=== PATIENT | female | born 1975 | race African-American/Black ===

== ENCOUNTER 2020-03-16 12:58 | Outpatient (CLI) | payer OTHER, SELFPAY | END 2020-03-16 12:59 | disposition home or self-care (01) | PROVIDERS: PCP Family Medicine; Visit Provider Internal Medicine Critical Care Medicine | DX: R05 Cough (principal) | CPT/HCPCS: 36415; 86615 ==

== ENCOUNTER 2020-03-23 11:06 | Outpatient (CLI) | payer OTHER, SELFPAY ==
--- NOTE | ~2020-03-23 | CT_ITS ---
EXAMINATION: CT sinus wo con DATE: 03/23/2020 11:28 INDICATION: Chronic sinusitis TECHNIQUE: Computed tomography (CT) of the paranasal sinuses was performed without intravenous contra st. The dose-length product (DLP) was 309.20 mGy-cm. Iterative reconstruction was used. COMPARISON: None FINDINGS: There is normal development and pneumatization of the paranasal sinuses. Mild mucosal thick ening is seen inferiorly in the maxillary sinuses. The frontal, sphenoid, ethmoid sinuses are clear. The bilateral ostiomeatal complexes are patent. Visualized soft tissues are unremarkable. IMPRESSION: 1. Mild mucosal thickening of the maxillary sinuses. Reviewed, dictated and finalized at location A.
== END 2020-03-23 11:07 ==
PROVIDERS: Visit Provider Allergy & Immunology
DX: J32.9 Chronic sinusitis, unspecified (principal); R05 Cough
CPT/HCPCS: 70486

== ENCOUNTER 2020-08-21 13:38 | Outpatient (CLI) | payer OTHER, SELFPAY ==
[2020-08-21 14:10] LABS: Basophils Percent Auto 0.6 % (0.2-1.2); Eosinophils Absolute Auto 0.1 K/mm3 (0-0.3); Hematocrit 36.5 % (37.0-47.0); Hemoglobin 12.1 g/dL (12.0-15.0); Immature Granulocyte Absolute 0.01 K/mm3 (0.00-0.031); Immature Granulocyte Percent A 0.2 % (0-0.5); Lymphocytes Absolute Auto 1.38 K/mm3 (0.9-3.2); Lymphocytes Percent Auto 29.6 % (18.3-44.2); Mean Corpuscular HGB Conc 33.2 g/dl (32-36); Mean Corpuscular Hemoglobin 31.3 pg (26-34); Mean Corpuscular Volume 94.6 fl (80-100); Mean Platelet Volume 9.9 fl (7.4-10.4); Monocytes Absolute Auto 0.3 K/mm3 (0.1-0.6); Monocytes Percent Auto 7.1 % (2.6-8.5); Neutrophils Absolute Auto 2.8 K/mm3 (1.3-6.7); Neutrophils Percent Auto 59.5 % (45.5-73.1); Platelet Count Result 220 k/mm3 (150-375); Red Blood Count 3.86 M/mm3 (4.2-5.4); Red Cell Distribution Width 13.2 % (11.5-14.5); White Blood Count 4.7 K/mm3 (4.5-10.0)
[2020-08-21 14:21] LABS: Add Urine Microscopic? YES; Alanine Aminotransferase 21 U/L (4-35); Albumin Level 3.8 g/dL (3.5-5.1); Alkaline Phosphatase 83 U/L (38-126); Anion Gap -2 mmol/L (8-16); Appearance Urine Cloudy (Clear); Aspartate Amino Transferase 29 U/L (14-36); Bacteria Urine Trace /hpf; Bilirubin Urine Negative (Negative); Bilirubin,Total 0.4 mg/dL (0.2-1.3); Blood Urea Nitrogen 17 mg/dL (7-17); Blood Urine Negative (Negative); Calcium 8.7 mg/dL (8.4-10.2); Carbon Dioxide 34 mmol/L (22-30); Chloride 102 mmol/L (98-107); Cholesterol 139 mg/dL (0-200); Color Urine Yellow (Yellow); Estimated Glomerular Filt Rate > 60; Glucose 141 mg/dL (65-105); Glucose Urine UA Negative (Negative); HDL Direct 55 mg/dL; Ketones Urine Negative (Negative); Leukocyte Esterase Ur 2+ LEU/UL (NEGATIVE); Mucus Urine Rare /lpf; Nitrate Urine Negative (Negative); Protein Urine Negative (Negative); RBC Urine 0-2 /hpf (0-2); Sodium 134 mmol/L (137-145); Specific Grav Ur 1.014 (1.001-1.035); Squamous Epithelial Cell Urine Many /hpf (Few); Triglycerides 43 mg/dL (<150); Urobilinogen Urine Negative mg/dL (<2.0); WBC Urine 16-20 /hpf (0-3)
[2020-08-21 14:34] LABS: LDL Cholesterol Direct 52 mg/dL
[2020-08-21 15:15] LABS: Hemoglobin A1C 9.1 % (<5.7)
== END 2020-08-21 13:39 | disposition home or self-care (01) ==
PROVIDERS: PCP Family Medicine; Visit Provider Nurse Practitioner Family
DX: E11.3599 Type 2 diabetes mellitus with proliferative diabetic retinopathy without macular edema, unspecified eye (principal); E78.2 Mixed hyperlipidemia; R73.01 Impaired fasting glucose
CPT/HCPCS: 36415; 80053; 80061; 81001; 83036; 84443; 85025

== ENCOUNTER 2024-11-25 16:28 | Outpatient (CLI) | payer MEDICARE, OTHER, SELFPAY ==
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
--- OUTSIDE RECORDS SUMMARY | 2024-11-25 16:33 | XMS_ITS | Clinical Summary ---
Author Organization [facility] Address [address] [place] [address] Care Team Providers Care Turbo Operator Name Role Phone Deanna Wyatt Primary Care Provider [phone] Deanna Wyatt Unavailable [phone] Rissa Sprague MD Unavailable [phone] Shireen Marino RN Unavailable [phone] Td Nicolas MD PhD Unavailable [phone] Amrik Mata MD Unavailable [phone] Allergies No known active allergies Medications loratadine (CLARITIN) 10 mg tablet Take 1 tablet (10 mg total) by mouth daily as needed for allergies Active ergocalciferol (VITAMIN D) 50,000 unit capsuleIndications :Vitamin D Deficiency Take 1 capsule (50,000 Units total) by mouth once a week on Mondays Active calcitRIOL (ROCALTROL) 0.5 mcg capsuleIndications :Vitamin D Deficiency Take 1 capsule (0.5 mcg total) by mouth daily before breakfast 4 Active polyethylene glycol (MIRALAX) 17 gram/dose bulk powderIndications: constipation Take 17 g by mouth daily as needed (constipation ) As often as needed to have a daily bowel movement 510 g 4 Active meclizine (ANTIVERT) 25 mg tablet Take 1 tablet (25 mg total) by mouth 3 (three) times a day as needed for dizziness 30 tablet 4 Active montelukast (SINGULAIR) 10 mg tablet Take 1 tablet (10 mg total) by mouth every morning 4 Active albuterol HFA (PROVENTIL HFA,VENTOLIN HFA,PROAIR HFA) 90 mcg/actuation inhaler Inhale 2 puffs every 6 (six) hours as needed for wheezing Active pantoprazole DR (PROTONIX) 40 mg EC tablet Take 1 tablet (40 mg total) by mouth daily as needed (heartburn) Active ondansetron ODT (ZOFRAN-ODT) 4 mg disintegrating tabletIndications: Nausea and Vomiting Take 1 tablet (4 mg total) by mouth every 6 (six) hours as needed for nausea or vomiting 30 tablet 5 Active amLODIPine (NORVASC) 10 mg tablet Take 1 tablet (10 mg total) by mouth daily 5 Active insulin glargine 100 unit/mL vial for injection Inject 5 Units under the skin daily Take 4 units morning of surgery Active furosemide (LASIX) 80 mg tablet Take 2 tablets 4 times a week on Sunday, Sunday, Sunday, and Sunday 102 tablet 3 5 Active Active Problems Problem Noted Date Diagnosed Date ESRD (end stage renal disease) on dialysis 09/29 Assessment & Plan (11/03/2024 3:05 PM CDT): Impression: Patient is status post left brachiocephalic AV fistula creation and continues to mature. She is being dialyzed through a right IJ Perma catheter without any issues. Audible bruit and palpable thrill noted to AV fistula. Surgical incision is well approximated, healing with sutures intact. Plan: Sutures removed. -continue utilizing right IJ Perma catheter for dialysis as per Nephrology. -patient to follow up in 6-8 weeks for re-evaluation with AV duplex scan. Hyperkalemia 07/31/2024 Left posterior capsular opacification 07/08/2024 Essential hypertension 03/07/2024 Assessment & Plan (09/16/2024 1:13 PM TAMALE MAKER): Impression: Chronic and stable. Plan: Continue amlodipine Assessment & Plan (03/31/2024 3:23 PM CDT): Continue antihypertensive ESRD on hemodialysis 03/04/2024 Assessment & Plan (09/16/2024 1:12 PM TAMALE MAKER): Impression: Patient is being dialyzed through a right-sided Perma catheter without any issues. Patient is now ready to proceed with permanent access creation. Patient is right-hand dominant and denies any history of DVTs/PEs, pacemaker, trauma or surgical interventions to the upper extremities. Palpable radial and brachial pulses noted to the right upper extremity exam. Venous mapping performed today shows suitable sizable veins for fistula creation to bilateral upper extremities. Plan: Recommend left upper extremity AV fistula/graft creation for dialysis access. Risks of the procedure communicate with the patient to include risk of bleeding, risk of infection, risk of nerve damage, risk of additional surgery, and risk of limb and life. Educated the patient regarding routine surveillance to ensure his access is functioning properly and to ensure no stenosis has occurred. Educated patient of the possibility of further surgery if his fistula/graft becomes stenosis. Educated the patient of arterial steal syndrome and the possibility of occurrence post fistula/graft creation. Patient voices understanding to all these risks explained to him. - Patient to be evaluated from his table operator for cardiac clearance prior to surgery -Continue utilizing Perma catheter for dialysis as per Nephrology. Assessment & Plan (03/31/2024 3:24 PM CDT): Discussed the differences between graft versus fistula creation. Per her vein mapping today she is a candidate for left upper extremity AV fistula creation. Discussed the process along with its potential risks factors. Answered all questions to their satisfaction. He is currently dialyzing through a tunneled dialysis catheter without any issues and is currently pursuing being on the kidney transplant list. They would like to discuss all this information at home and see where they are in the kidney transplant list and will call with their decision in the next few days. Nausea and vomiting, unspecified vomiting type 0 02/29/2024 CKD (chronic kidney disease) stage 5, GFR less than 15 ml/min 02/29/2024 Chest pain 02/29/2024 Anemia in stage 4 chronic kidney disease 024 Iron deficiency anemia, unspecified 02/04/2024 VH (vitreous hemorrhage), right 01/02/2024 Assessment & Plan (01/29/2024 9:10 AM CDT): PDR both eyes OS s/p PRP - stable OD s/p PPV, however recurrent VH, Now s/p repeat PPV 01/17/24 POW2: vision improving, attached 360 with good laser 360, no VH, PF taper, Post op precautions Assessment & Plan (01/18/2024 9:42 AM CDT): PDR both eyes OS s/p PRP - stable OD s/p PPV, however recurrent VH, Now s/p repeat PPV 01/17/24 POD1: attached 360, discussed some head elevation, vigamox/PF QID. Post op precautions Assessment & Plan (01/11/2024 12:08 PM CDT): PDR both eyes OS s/p PRP - stable OD s/p PPV, however recurrent VH, B scan flat, s/p antiVEGF 1 week prior without improvement, she wishes to pursue surgery with Dr. 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 Status post (s/p) pars plana vitrectomy (PPV) and panretinal photocoagulation (PRP). Attached 360 on B scan. Discussed R/B/A of anti-VEGF and patient wishes to proceed. JUANIS today Warning Sx endophthalmitis discussed Follow up as scheduled with Dr. Calvo Vitreous hemorrhage of left eye 12/18/2023 Acute renal failure superimposed on chronic kidn ey disease 11/09/2023 Assessment & Plan (11/14/2023 4:51 PM CDT): Cr 3.9 (baseline 2-2.9) on admission. Initially thought to be from N/V/D and DKA., however may be some component of Proteinuria or Diabetic Nephropathy at play. Would not explain acute rise in the past month. Overall suspicious of pre-renal etiology given DKA and ATN with acute rise in creatinine with overall slow decrease. Renal US - normal to moderately increased echogenicity of both kidneys, no hydronephrosis, no renal calculi - Patient to follow up with her PCP on discharge regarding further labwork and workup. - Orthostatic 11/09, s/p IVF bolus 500ml. - cont calcitriol. - Holding januvia, jardiance, nephrotoxic medications. - Patient reports voiding well, no urinary sx, diarrhea now resolved, po intake good. - PCR: 1842.4, elevated in the setting of JOAN. Will need repeat PCR as outpatient. - Urine Lytes show likely pre-renal/ intrinsic process. - Repeat UA per nephrology regarding RBCs 11/12: 3-5 ( >50). Hypertensive urgency 11/09/2023 Assessment & Plan (11/14/2023 4:49 PM CDT): BP as high as 200/130s, c/b orthostatic hypotension 11/09. Orthostatic hypotension since improved, no longer complaining of position changes. - from not taking meds d/t feeling unwell. - holding losartan d/t JOAN. Will have to follow up with PCP on discharge. - Due to elevated pressures will resume amlodipine, coreg, hydralazine, isordil, clonidine, improvement in patient blood pressure. MICH (obstructive sleep apnea) 11/09/2023 Assessment & Plan (11/13/2023 1:30 PM CDT): - Wearing CPAP every night. Chronic diastolic congestive heart failure 11/08 Assessment & Plan (11/14/2023 4:28 PM CDT): proBNP 14k however euvolemic on exam. TTE 09/2023 w/ EF 55%, diastolic dysfunction. - hold lasix (40mg BID), losartan (50mg) pending resolution of JOAN. - Resume coreg, hydral/isordil. Stage 3b chronic kidney disease 10/04/2023 Hypertensive urgency 10/04/2023 Acute on chronic congestive heart failure 2023 Restrictive lung disease 10/02/2023 Pericardial effusion 10/02/2023 Pleural effusion 10/02/2023 Non-seasonal allergic rhinitis due to pollen 06/2024 Pulmonary hypertension 10/02/2023 Hypertensive emergency 10/02/2023 Solitary pulmonary nodule 10/02/2023 Abdominal swelling 10/02/2023 Hypocalcemia 10/02/2023 Hypothyroidism 10/02/2023 Proliferative diabetic retin opathy of left eye with macular edema associated with type 2 diabetes mellitus 09/13/2023 Assessment & Plan (07/08/2024 12:22 PM TAMALE MAKER): Neovascularization elsewhere (NVE) superior nasal with traction and neovascularization of the disc (NVD) with VH, pt ed Refer to Retina Assessment & Plan (09/13/2023 3:38 PM TAMALE MAKER): Vitreous hemorrhage and increased cystoid macular edema (CME) since prior in better seeing eye. Discussed R/B/A of anti-VEGF and patient wishes to proceed. I'VE today Warning Sx endophthalmitis discussed Chronic cough 08/03/2023 Nonsmoker 08/03/2023 Vomiting 06/09/2023 Assessment & Plan (06/12/2023 10:58 AM TAMALE MAKER): Patient with vomiting after surgical procedure under anesthesia. Vomiting started to improve without any episodes in over 12 hours, then she was unable to tolerate anything PO. - IV anti emetics ordered, transitioned to PO as patient reports improvement in symptoms. Tolerating diet currently JOAN (acute kidney injury) 06/09/2023 Assessment & Plan (06/11/2023 11:54 AM TAMALE MAKER): Per documentation patient with CKD stage 3. Patient recently was switched from hydrochlorothiazide/losartan to Entresto by outpatient provider. Patient also recently had her furosemide stopped. Creatinine remains stable, suspect this is patients baseline. - will hold Entresto - renally dose all medications - lactated Ringer's at 75 cc/hour x 2.5 L, held due sob. Patient denies shortness of breath this morning. Type 2 DM with CKD stage 3 and hypertension 05/23 Assessment & Plan (09/16/2024 1:11 PM TAMALE MAKER): Impression: Chronic with good glucose control Plan: Continue insulin. Assessment & Plan (05/13/2024 4:38 PM CDT): 49 y.o. female with type 2 diabetes mellitus, on insulin, poorly-controlled, complicated by peripheral neuropathy, proliferative diabetic retinopathy, ESRD on HD (T--Sun), diastolic CHF (LVEF 55-60%), pulmonary hypertension, 4 mm pulmonary nodule in the right upper lobe, hypertension, hyperlipidemia, vitamin D deficiency Glycemic control sub-optimal with persistent hyperglycemia (target A1c < 7.0%) Hgb A1c unreliable in setting acute-chronic anemia, end-stage renal disease -> check alternative indices of glycemic control (e.g., fructosamine or glycated albumin - reflects glycemic control over past 2 to 3 weeks) (+) recent episodes of hypoglycemia (overnight - likely related to basal insulin; dose reduced); adherent with medications and BG monitoring with glucometer and/or No CGM No results found for: CPEPTIDE , KGF54RA , IA2AB Lab Results Component Value Date HGBA1C 8.9 (H) 11/10/2023 GLUCOSE 245 (H) 04/15/2024 Denies recent symptoms of hyperglycemia (no polyuria, no polydipsia, no increased hunger, no unintentional weight loss, no blurry vision), no recurrent infections (e.g., no urinary tract infections, no skin infections). No issues obtaining insulin and/or other glucose-lowering medications. Has adequate blood sugar monitoring supplies. Still struggling to adhere to a healthy diet and regular exercise regimen in setting co-morbid conditions. No changes to current diabetic regimen due to lack of BG data - will focus on obtaining CGM and is currently starting evaluation for renal transplant (ESRD undergoing HD on ). Recent Ophthalmology visit. Plan: 1) Medications Basal: Lantus 10 -> 8 -> 5 units qHS (in setting overnight hypoglycemic episodes) Bolus: Humalog 3 units TID with meals + 1:50 >150 sliding scale OFF Metformin in setting poor renal function OFF Statin - Atorvastatin (Lipitor) 40 mg/day Not taking BETZY-ARB 2) Monitoring BG testing supplies - glucometer and/or continuous glucose monitor (CGM) Emergency glucagon treatment product, if appropriate Gvoke HypoPen or Zegalogue premixed glucagon auto-injector Baqsimi glucagon nasal powder Hgb A1C, renal function panel, lipid profile, urine microalbumin:Cr Referral with ambulatory diabetes education for BG monitoring and CGM Retinal examination - follow-up with Ophthalmology Foot care evaluation - follow-up with Podiatry Vaccinations: Flu (yearly), Tdap, Hep B, Herpes zoster (50 yr), COVID-19 Assessment & Plan (03/31/2024 3:22 PM CDT): Continue insulin Assessment & Plan (06/10/2023 6:03 PM TAMALE MAKER): Patient on home Farxiga, Januvia, and metformin - A1c 6.9 - hold oral medications - sliding scale insulin and consistent carb diet given decreased p.o. - blood glucose stable Chronic diastolic heart failure 06/09/2023 Assessment & Plan (06/11/2023 11:56 AM TAMALE MAKER): Chart review of history of chronic diastolic heart failure. No echocardiogram in our system. Patient reports following with Dr. Salomon for Cardiology in [place] - continue atorvastatin, Coreg and hold Entresto and Farxiga given JOAN above - Encourage patient to continue to follow up with outpatient provider Proliferative diabetic retin opathy of both eyes with macular edema associated with type 2 diabetes mellitus 05/29/2023 Assessment & Plan (08/12/2024 11:29 AM TAMALE MAKER): OS s/p PRP - referred back by Dr. Kirk for new NV/VH Today with NVD/NVE with inferonasal fibrosis and associated PRH/VH. Has decent PRP however does have some room for fill if needed. Recommend repeat injection today and bring back for second injection to prevent progression of inferior fibrotic traction to TRD. OD s/p PPV, however recurrent VH, then s/p repeat PPV 01/17/24 Stable today with good PRP, observe Vision limited by atrophic changes OU Assessment & Plan (04/08/2024 9:21 AM CDT): OS s/p PRP - stable OD s/p PPV, however recurrent VH, now s/p repeat PPV 01/17/24 POM3: vision improving, attached 360 with good laser 360 Stable with excellent PRP OU Atrophic changes OU Assessment & Plan (12/18/2023 10:07 AM CDT): S/p PPV OD / S/p PRP OU OD improved CME with lamellar changes and EZ fragmentation OS + VH and few IR cysts. Discussed injections and DRCR results Assessment & Plan (10/16/2023 10:53 AM CDT): S/p PPV OD / S/p PRP OU S/p inj for VH OD with improvement + CME, repeat inj OD OS CME improved and stable PDR Assessment & Plan (09/18/2023 10:51 AM TAMALE MAKER): OD mild VH h/o PPV with laser Inject OD today OS recent injection 5 days ago, history of PRP Understands guarded prognosis Assessment & Plan (09/13/2023 3:39 PM TAMALE MAKER): Vitreous hemorrhage today limiting fundus view, attached 360 right eye (OD). Discussed R/B/A of likely anti-VEGF right eye (OD) at follow up with Dr. Calvo Assessment & Plan (06/19/2023 10:16 AM TAMALE MAKER): S/p PPV laser MP OD PRP OS Taper drops PF Discontinue antibiotic Assessment & Plan (06/11/2023 11:48 AM TAMALE MAKER): Patient with recent surgical procedure by Ophthalmology. Had postop follow-up eye appointment without complication. - continue outpatient drops as prescribed. - will continue to hold aspirin as unclear when patient was supposed to restart this medication and patient planning to call ophthalmology office today to find out Assessment & Plan (05/29/2023 9:10 AM TAMALE MAKER): Discussed DRCR studies and discussed severity of PDR Discussed several studies : Options continue injections had them 1 week ago, h/o avastin Recent IVO OD but persistent CME and ERM Options: PRP OU or PPV OD and PRP OS Understands need for additional injections OU in future Also understands need for possible PPV in future OS Risks, benefits, alternatives were discussed with patient including but not limited to infection, bleeding, retinal detachment, damage to eye, loss of vision, loss of eye, deformity, double vision, increased pressure in the eye, cataract progression, inflammation in the eye that can spread to the other eye, postoperative positioning, altitude/travel precautions should gas bubble injection be required, the guarded prognosis for vision, the potential need for further procedures, and that no guarantees can be made. The patient understands these risks and all questions were answered. The patient then elected to proceed. OD PPV laser OS Pseudophakia of both eyes 05/29/2023 Resolved Problems Problem Noted Date Diagnosed Date Resolved Date Diabetic ketoacidosis withou t coma associated with type 2 diabetes mellitus 11/09/2023 01/11/2024 Assessment & Plan (11/14/2023 4:19 PM CDT): P/w BG 400s, AG 16, ketones 0.9, pH 7.36. Workup: UA w/ 21-50 WBCs (but contaminated by squams), CXR neg, WBC 8.9, RVP neg. Patient prior A1C in 6's range. Unclear of what oral antihyperglycemic medications she was taking at home. Per previous charts, it looks as though she was most recently prescribed Farxiga. Patient unclear if on either Jardiance or Januvia at home, presumably stopped Januvia 09/2023 due to heart failure. Ha1c 8.8, repeat 8.9. - sensitive SSI, DM diet. - holding jardiance d/t JOAN, discontinued Januvia d/t CHF. - Endocrine consult: recommend discharge with 3 units glargine. - Diabetes education c/s - saw patient on 11/14/23. - F/u outpatient for labs, as Cr/ GFR inappropriate to start oral antihyperglycemic at this time. (Patient reportedly to reschedule appt. with last ironer Dr. Saucedo). Coffee ground emesis 11/09/2023 024 Assessment & Plan (11/14/2023 4:30 PM CDT): Reports vomiting followed by 3 episodes of CGE. - Workup: lipase nl, UA 21-50 WBCs but contaminated by squams, Hgb 10.7 (baseline 7-10 range). - Ddx: DKA vs viral gastro. Denies UTI symptoms. No further emesis. - PPI PO. - CTM. Obstructive sleep apnea 10/02/2023 05/0 08/2023 Pneumonia of right lower lob e due to infectious organism 06/08/2023 06/09/2023 Encounters Date Type Department Care Team Description 11/14/2024 Telephone [facility] Ophthalmology [address] 6[address] [place] [address] Mann Calvo MD PhD Pre Cert (2024 AVASTIN NOT ELIGIBLE FOR DAYS ) 11/03/2024 2:15 PM CDT Office Visit [facility] Medical Group Vascular and Vein Surgery [address] [place] [phone] Marilyn Barrios NP ESRD (end stage renal disease) on dialysis (HCC) (Primary Dx) 11/03/[address] [facility] Medical [facility] Vascular and Vein Surgery [address] [place] [address] [address] [place] [address] Vinayak Santos MD End stage renal disease (HCC) (Primary Dx); Arteriovenous fistula occlusion, initial encounter 10/17/[address] [facility] Accountable Care Organization [address] [place] [id number] Yissel Tobias RPh 10/13/2024 7:30 AM CDT - 10/13/2024 9:25 AM CDT Surgery [facility] OR [address] [place] [address] Vinayak Santos MD CREATION LEFT UPPER EXTREMITY ARTERIOVENOUS FISTULA 10/13/2024 7:30 AM CDT Anesthesia Event [facility] OR [address] [place] [address] Josselyn Bruno MD Lee, Walter, MD 10/13/2024 5:32 AM CDT - 10/13/2024 11:15 AM CDT Hospital Encounter [facility] [place] [place] [address] [place] [address] Vinayak Santos MD ESRD (end stage renal disease) (HCC) (Primary Dx) Discharge Disposition: Discharge to home or self care 10/03/2024 Telephone [facility] Transplant Kidney [address] [facility] [address] [phone] [place] [address] Shireen Marino RN Kidney Eval 09/30/2024 8:20 AM CDT Procedure visit [facility] Ophthalmology [address] [facility] [address] [place] [phone] Mann Calvo MD PhD 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) (Primary Dx) 09/29/2024 8:00 AM CDT - 09/29/2024 11:59 PM CDT Hospital Encounter [facility] Pulmonary Rehabilitiation Program [address] [facility] [address] [place] [address] Discharge Disposition: Discharge to home or self care 09/29/2024 7:00 AM CDT - 09/29/2024 11:59 PM CDT Hospital Encounter [facility] Cardiac Diagnostic Lab [address] [facility] [address] [place] [phone] Pre-transplant evaluation for kidney transplant; End stage renal disease (HCC); Pulmonary hypertension (HCC) Discharge Disposition: Discharge to home or self care 09/29/2024 Telephone [facility] Dialysis Access Center at [facility] [address] [facility] [address] [place] [address] Vinayak Santos MD 09/23/2024 3:00 PM TAMALE MAKER Office Visit [facility] Medical Group Cardiology [address] [facility] [address] [place] [phone] Candido Tariq MD Pre-operative cardiovascular examination (Primary Dx) 09/18/2024 10:26 AM TAMALE MAKER - 09/21/2024 2:15 PM TAMALE MAKER Hospital Encounter [facility] 2 Center [address] [place] [address] Pablo Gallego MD Saravanan, Pathanjali, MD Elizondo, Daniel Elias, MD Hyperkalemia (Primary Dx); ESRD on hemodialysis (HCC) Discharge Disposition: Discharge to home or self care 09/16/2024 11:03 AM TAMALE MAKER - 09/16/2024 11:59 PM TAMALE MAKER Hospital Encounter [facility] Dialysis Access Center at [address] [address] ESRD on hemodialysis (HCC) (Primary Dx); Essential hypertension; Type 2 DM with CKD stage 3 and hypertension (HCC); Chronic diastolic congestive heart failure (HCC) Discharge Disposition: Discharge to home or self care 09/16/2024 11:00 AM TAMALE MAKER - 09/16/2024 11:59 PM TAMALE MAKER Hospital Encounter [facility] Medical Office Building 2 Vascular [address] [address] Pre-operative exam; End stage renal disease (HCC) Discharge Disposition: Discharge to home or self care 09/16/2024 Results Follow-Up [facility] [address] [place] [address] Kourtney Damon PA 09/16/[address] [facility] Medical Group Cardiology [address] [place] [address] [phone] Candido Tariq MD 09/16/2024 Telephone [facility] Dialysis Access Center at [facility] [address] [facility] [address] [place] [address] Marilyn Barrios NP Cardiac Clearance / LUE AVF vs AVG Creation 09/11/2024 7:59 AM TAMALE MAKER - 09/11/2024 5:16 PM [place] [address] Jesu Chew MD Philip, Antonio Gary MD ESRD on hemodialysis (HCC) (Primary Dx); Weakness; ESRD (end stage renal disease) (HCC); Dizziness; Hyperkalemia Discharge Disposition: Discharge to home or self care from Last 3 Months Immunizations Immunization Administration Dates Next Due Hep B Vaccine 05/15/2024,04/19/2024,03/15/2024 Influenza, Trivalent, IM (MDV) 04/16/2024 Influenza, Trivalent, Preser vative Free, Intramuscular 04/11/2024 Influenza, Unspecified 04/16/2024 PPD TEST 03/18/2024 Pneumococcal Conjugate Pcv20 08/28/2024 Tdap 08/10/2022,06/03/2020 Surgical History Surgery Date Site/Laterality Comments CATARACT EXTRACTION 07/23/2019 - 07/22/2020 Bilateral SKIN GRAFT SPLIT THICKNESS LEG / FOOT 05/29/2021 Bilateral CATARACT EXTRACTION 05/23/2023 - 06/21/2023 VITRECTOMY 01/17/2024 Right PPV/EL/FAX TUNNELED VENOUS CATHETER PLACEMENT 03/05/2024 Right RIJ permacath - Dr. Medel DIALYSIS FISTULA CREATION 10/13/2024 Left LUE brachiocephalic AVF creation - Dr. Vinayak Santos Medical History Medical History Date Comments Diabetes mellitus (HCC) Thyroid disease Hypertension Vertigo CHF (congestive heart failure) ([facility]) Obstructive sleep apnea 10/02/2023 no cpap Diabetic retinopathy ([facility]) Nausea and vomiting, unspeci fied vomiting type 02/29/2024 Chronic kidney disease dialysis - sat Anemia months ago Vitamin D deficiency 1year ago PONV (postoperative nausea a nd vomiting) Allergic rhinitis GERD (gastroesophageal reflux disease) Type 2 diabetes mellitus (HCC) H/O byers 2019 3rd degree to fe et now has balance issues Family History Medical History Relation Name Comments Cancer Father FTher prostate Diabetes Father FTher Cancer Mother Mother lung Diabetes Mother Mother Glaucoma Mother Mother Cancer Sister Sister lung Anesthesia problems Neg Hx Relation Name Status Comments Father FTher Mother Mother Sister Sister Social History Tobacco Use Types Packs/Day Years Used Date Smoking Tobacco: Never Passive Smoke Exposure: Never Smokeless Tobacco: Never Tobacco Cessation:Counseling Given: Yes [facility] Utilities Answer Date Recorded In the past 12 months has th e electric, gas, oil, or water company threatened to shut off services in your home? No 09/19/2024 Social Connection and Isolat ion Panel [NHANES] Answer Date Recorded In a typical week, how many times do you talk on the phone with family, friends, or neighbors? More than three times a week 09/19/2024 How often do you get togethe r with friends or relatives? Once a week 09/19/2024 How often do you attend chur ch or moravian services? Never 09/19/2024 Do you belong to any clubs o r organizations such as samaritan groups, unions, fraternal or athletic groups, or school groups? No 09/19/2024 How often do you attend meet ings of the clubs or organizations you belong to? Never 09/19/2024 Are you , , di vorced, , never , or living with a partner? 09/19/2024 AUDIT-C Answer Date Recorded Q1: How often do you have a drink containing alcohol? Never 10/13/2024 Q2: How many drinks containi ng alcohol do you have on a typical day when you are drinking? Patient does not drink Q3: How often do you have si x or more drinks on one occasion? Never 10/13/2024 Overall Financial Resource Strain (CARDIA) Answe r Date Recorded How hard is it for you to pa y for the very basics like food, housing, medical care, and heating? Not very hard 09/19/2024 PHQ-2 Answer Date Recorded PHQ-2 Total Score (If total score is 3 or more points, staff should administer the PHQ-9) 0 09/13/2024 [facility] Occupat ional [facility] - Occupational Stress Questionnaire Answer Date Recorded Do you feel stress - tense, restless, nervous, or anxious, or unable to sleep at night because your mind is troubled all the time - these days? Not at all 11/09/2023 Exercise Vital Sign Answer Date Recorde d On average, how many days pe r week do you engage in moderate to strenuous exercise (like a brisk walk)? 0 days 11/09/2023 On average, how many minutes do you engage in exercise at this level? 0 min 11/09/2023 Hunger Vital Sign Answer Date Recorded Within the past 12 months, y ou worried that your food would run out before you got the money to buy more. Never true 09/19/19 25 Within the past 12 months, t he food you bought just didn't last and you didn't have money to get more. Never true 09/19/2024 PRAPARE - Transportation Answer Date Re corded In the past 12 months, has l ack of transportation kept you from medical appointments or from getting medications? No 08/24 In the past 12 months, has l ack of transportation kept you from meetings, work, or from getting things needed for daily living? No 09/19/2024 Housing Stability Vital Sign Answer Javier e Recorded In the last 12 months, was t here a time when you were not able to pay the mortgage or rent on time? No 11/16/2023 In the last 12 months, how many places have you lived? 1 11/16/2023 In the last 12 months, was t here a time when you did not have a steady place to sleep or slept in a long-term (including now)? No 11/16/2023 PHQ-9 Answer Date Recorded PHQ-9 Total Score 0 09/13/2024 Housing Stability Vital Sign Answer Javier e Recorded In the last 12 months, was t here a time when you were not able to pay the mortgage or rent on time? No 09/19/2024 In the past 12 months, how m any times have you moved where you were living? 0 09/19/2024 At any time in the past 12 m [facility], were you homeless or living in a long-term (including now)? No 09/19/2024 Personal Safety Answer Date Recorded Have you ever been in or are you currently in a harmful physical or emotional relationship or is someone making you feel afraid or unsafe? Denies 10/13/2024 Comments No Sex and Gender Information Value Date Recorded Sex Assigned at Not on file Legal Sex Female 1:48 PM CDT Gender Identity Not on file Sexual Orientation Not on file Obstetrics History Last Filed Vital Signs Vital Sign Reading Time Taken Comments Blood Pressure 164/78 11/03/2024 2:22 PM CDT Pulse 94 11/03/2024 2:22 PM CDT Temperature 37.2 C (99 F) 10/13/2024 9:40 AM CDT Respiratory Rate 18 10/13/2024 10:10 AM CDT Oxygen Saturation 93% 10/13/2024 10:10 AM CDT Inhaled Oxygen Concentration - - Weight 76.7 kg (169 lb) 11/03/2024 2:22 PM CDT Height 172.7 cm (5' 8 ) 11/03/2024 2:22 PM CDT Body Mass Index 25.7 11/03/2024 2:22 PM CDT Plan of Treatment Health Maintenance Due Date Last Done Comments Breast Cancer Screening-Mammogram 1974 Cervical Cancer Screening 1974 Colon Cancer Screening-Colonoscopy 1974 Foot Exam 1974 Regular Well Visit/Exam 18-64 01/17/1992 Zoster Vaccine (1 of 2) 01/17/2024 Covid-19 Vaccine (3 - 2023-2 5 season) 2024 03/13/2021, 02/17/2021 Albumin Creatinine Ratio, Urine 10/04/2024 Hemoglobin A1C 02/22/2025 08/25/2024, 03/2025, 05/13/2024, Additional history exists Dilated Eye Exam 08/12/2025 08/12/2024, , 04/08/2024, Additional history exists Depression Screening 08/25/2025 08/25/2024, 08/25/2024, 07/31/2024, Additional history exists Lipid Panel 08/25/2025 08/25/2024, 04/23, 11/09/2023, Additional history exists eGFR 10/13/2025 10/13/2024, 08/2024, 09/20/2024, Additional history exists DTaP/Tdap/Td Vaccine (3 - Td or Tdap) 08/10/2032 08/10/2022, 06/03/2020 Influenza Vaccine Completed 04/16/2024, , 04/11/2024 Hepatitis C Screening Completed 08/25/2024 , 07/31/2024, 03/04/2024, Additional history exists Pneumococcal vaccine <65 Completed 08/28/2024 Hepatitis B Screening Completed 09/11/2024 , 05/15/2024, 04/19/2024, Additional history exists Medical Devices Implanted Type Area Java Software Device Identifier Shelf Expiration Date Model / Serial / Lot Iud Vagina OQVestir Duraflow Embosafe 15.5fr 28cm Basic 2 Lumen Kit Catheter [id number] - [id number] Implanted:Qty: 1 on 03/05/2024 by Boubacar Medel MD at [facility] Right: Internal Jugular OQVestir 04/21/2026 [id number] / / [id number] Procedures Procedure Name Priority Date/Time Associated Diagnosis Comments POCT GLUCOSE DEVICE Routine 10/13/2024 9 :12 AM CDT IL AN PROCEDURE PLACEHOLDER Routine 10/13/2024 7:47 AM CDT IL AN ELECTIVE ENDOTRACHEAL AIRWAY Routine 10/13/2024 7:47 AM CDT CREATION ARTERIOVENOUS FISTULA - ARM 10/13/2024 7:30 AM CDT ESRD (end stage renal disease) on dialysis (HCC) ECG 12-LEAD STAT 10/13/2024 7:04 AM CDT POCT GLUCOSE DEVICE Routine 10/13/2024 6 :03 AM CDT EGFR STAT 10/13/2024 6:03 AM CDT HCG, BLOOD, QUANTITATIVE STAT 10/13/2024 6:03 AM CDT APTT STAT 10/13/2024 6:03 AM CDT PROTIME-INR STAT 10/13/2024 6:03 AM CDT CBC WITHOUT DIFFERENTIAL STAT 10/13/2024 6:03 AM CDT BASIC METABOLIC PANEL STAT 10/13/2024 6:03 AM CDT POCT HCG, URINE Routine 10/13/2024 6:00 AM CDT INTRAVITREAL INJECTION, PHARMACOLOGIC AGENT - OS - LEFT EYE Routine 09/30/2024 10:17 AM CDT 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) SIX MINUTE WALK Routine 09/29/2024 8:17 AM CDT Pre-transplant evaluation for kidney transplant End stage renal disease (HCC) TRANSTHORACIC ECHO (TTE) COMPLETE W DOPPLER/CF WO CONTRAST Routine 09/29/2024 8:10 AM CDT Pre-transplant evaluation for kidney transplant End stage renal disease (HCC) Pulmonary hypertension (HCC) POCT GLUCOSE DEVICE Routine 09/21/2024 1 1:53 AM TAMALE MAKER POCT GLUCOSE DEVICE Routine 09/21/2024 7 :50 AM TAMALE MAKER EGFR Routine 09/21/2024 4:31 AM TAMALE MAKER DIFFERENTIAL AUTO Routine 09/21/2024 4:3 1 AM TAMALE MAKER MAGNESIUM Routine 09/21/2024 4:31 AM TAMALE MAKER BASIC METABOLIC PANEL Routine 09/21/2024 4:31 AM TAMALE MAKER HEPATIC FUNCTION PANEL Routine 09/21/2024 4:31 AM TAMALE MAKER CBC WITH AUTO DIFFERENTIAL Routine 09/21/2024 4:31 AM TAMALE MAKER POCT GLUCOSE DEVICE Routine 09/20/2024 8 :07 PM TAMALE MAKER POCT GLUCOSE DEVICE Routine 09/20/2024 4 :[address] HEAD WO CONTRAST ED Urgent/IP Urgent 09/20/2024 1:57 PM TAMALE MAKER POCT GLUCOSE DEVICE Routine 09/20/2024 1 :10 PM TAMALE MAKER POCT GLUCOSE DEVICE Routine 09/20/2024 8 :20 AM TAMALE MAKER LIPASE Routine 09/20/2024 6:29 AM TAMALE MAKER EGFR Routine 09/20/2024 6:29 AM TAMALE MAKER DIFFERENTIAL AUTO Routine 09/20/2024 6:2 9 AM TAMALE MAKER MAGNESIUM Routine 09/20/2024 6:29 AM TAMALE MAKER BASIC METABOLIC PANEL Routine 09/20/2024 6:29 AM TAMALE MAKER HEPATIC FUNCTION PANEL Routine 09/20/2024 6:29 AM TAMALE MAKER CBC WITH AUTO DIFFERENTIAL Routine 09/20/2024 6:29 AM TAMALE MAKER POCT GLUCOSE DEVICE Routine 09/20/2024 6 :19 AM TAMALE MAKER POCT GLUCOSE DEVICE Routine 09/19/2024 8 :26 PM TAMALE MAKER POCT GLUCOSE DEVICE Routine 09/19/2024 4 :[address] ABDOMEN PELVIS WO CONTRAST ED Urgent/IP Urgent 09/19/2024 1:08 PM TAMALE MAKER POCT GLUCOSE DEVICE Routine 09/19/2024 1 1:26 AM TAMALE MAKER HCG, BLOOD, QUANTITATIVE STAT 09/19/2024 10:48 AM TAMALE MAKER HEMODIALYSIS Routine 09/19/2024 10:31 AM TAMALE MAKER POCT GLUCOSE DEVICE Routine 09/19/2024 8 :28 AM TAMALE MAKER EGFR Routine 09/19/2024 6:44 AM TAMALE MAKER DIFFERENTIAL AUTO Routine 09/19/2024 6:4 4 AM TAMALE MAKER CBC WITH AUTO DIFFERENTIAL Routine 09/19/2024 6:44 AM TAMALE MAKER PHOSPHORUS Routine 09/19/2024 6:44 AM TAMALE MAKER MAGNESIUM Routine 09/19/2024 6:44 AM TAMALE MAKER COMPREHENSIVE METABOLIC PANEL Routine 09/19/2024 6:44 AM TAMALE MAKER POCT GLUCOSE DEVICE Routine 09/18/2024 7 :37 PM TAMALE MAKER US KIDNEY COMPLETE IP Routine 09/18/2024 7: 21 PM TAMALE MAKER BUN Routine 09/18/2024 6:45 PM TAMALE MAKER POTASSIUM LEVEL Timed 09/18/2024 6:45 PM TAMALE MAKER POCT GLUCOSE DEVICE Routine 09/18/2024 5 :58 PM TAMALE MAKER POTASSIUM LEVEL STAT 09/18/2024 2:00 PM TAMALE MAKER POCT GLUCOSE DEVICE Routine 09/18/2024 1 :28 PM TAMALE MAKER HEMODIALYSIS Routine 09/18/2024 12:48 PM TAMALE MAKER POCT GLUCOSE DEVICE Routine 09/18/2024 1 1:58 AM TAMALE MAKER URINALYSIS, MICROSCOPIC ONLY STAT 09/18/2024 10:15 AM TAMALE MAKER URINE CULTURE STAT 09/18/2024 10:15 AM TAMALE MAKER URINALYSIS AND REFLEX TO MICROSCOPIC AND CULTURE STAT 09/18/2024 10:15 AM TAMALE MAKER POC BLOOD GAS AND CHEMISTRIES, VENOUS Routine 09/18/2024 10:12 AM TAMALE MAKER ECG 12-LEAD STAT 09/18/2024 9:44 AM TAMALE MAKER MAGNESIUM STAT 09/18/2024 9:38 AM TAMALE MAKER PHOSPHORUS STAT 09/18/2024 9:38 AM TAMALE MAKER EGFR STAT 09/18/2024 9:38 AM TAMALE MAKER DIFFERENTIAL AUTO STAT 09/18/2024 9:3 8 AM TAMALE MAKER COMPREHENSIVE METABOLIC PANEL STAT 09/18/2024 9:38 AM TAMALE MAKER CBC WITH AUTO DIFFERENTIAL STAT 09/18/2024 9:38 AM TAMALE MAKER US VEIN MAPPING DUPLEX UPPER EXTREMITY BILATERAL Schedule Routine, Read Routine (OP Routine) 09/16/2024 1:28 PM TAMALE MAKER Pre-operative exam End stage renal disease (HCC) URINALYSIS, MICROSCOPIC ONLY STAT 09/11/2024 3:43 PM TAMALE MAKER URINE CULTURE STAT 09/11/2024 3:43 PM TAMALE MAKER URINALYSIS AND REFLEX TO MICROSCOPIC AND CULTURE STAT 09/11/2024 3:43 PM TAMALE MAKER POCT GLUCOSE DEVICE Routine 09/11/2024 3 :12 PM TAMALE MAKER HEPATITIS B SURFACE ANTIGEN STAT 09/11/2024 10:58 AM TAMALE MAKER HEPATITIS B SURFACE ANTIBODY (IMMUNE STATUS) STAT 09/11/2024 10:58 AM TAMALE MAKER POCT GLUCOSE DEVICE Routine 09/11/2024 1 0:43 AM TAMALE MAKER POCT GLUCOSE DEVICE Routine 09/11/2024 1 0:07 AM TAMALE MAKER POTASSIUM LEVEL Timed 09/11/2024 10:05 AM TAMALE MAKER HEMODIALYSIS Routine 09/11/2024 9:32 AM TAMALE MAKER XR CHEST 1 VIEW ED 09/11/2024 9:00 AM TAMALE MAKER POC BLOOD GAS AND CHEMISTRIES, VENOUS Routine 09/11/2024 8:35 AM TAMALE MAKER ECG 12-LEAD STAT 09/11/2024 8:19 AM TAMALE MAKER EGFR STAT 09/11/2024 8:18 AM TAMALE MAKER DIFFERENTIAL AUTO STAT 09/11/2024 8:1 8 AM TAMALE MAKER COMPREHENSIVE METABOLIC PANEL STAT 09/11/2024 8:18 AM TAMALE MAKER CBC WITH AUTO DIFFERENTIAL STAT 09/11/2024 8:18 AM TAMALE MAKER INFLUENZA A/B, RSV, AND COVID-19 PCR STAT 09/11/2024 8:18 AM TAMALE MAKER HEPATITIS C ANTIBODY Routine 08/25/2024 10:24 AM TAMALE MAKER Pre-transplant evaluation for kidney transplant End stage renal disease (HCC) HEMOGLOBIN A1C Routine 08/25/2024 10:24 AM TAMALE MAKER Pre-transplant evaluation for kidney transplant End stage renal disease (HCC) LIPID PANEL Routine 08/25/2024 10:24 AM TAMALE MAKER Pre-transplant evaluation for kidney transplant End stage renal disease (HCC) ALBUMIN CREATININE RATIO, URINE Routine 10/05/2023 3:35 AM CDT from Last 3 Months or Most Recently Relevant to Health Maintenance Results * POCT glucose (10/13/2024 9:12 AM CDT) Glucose, POC 125 70 - 199 mg/dL Glucose comment 1 Will Repeat Test YAW BOOKER Blood 10/13/2024 9:12 AM CDT 10/13/2024 9:12 AM CDT us Vinayak Santos MD LAB POCT ORDERABLES - DEVICE Fin al Result YAW BOOKER [address] [place] [address] Department [place] [address] * IL AN ELECTIVE ENDOTRACHEAL AIRWAY, IL AN PROCEDURE PLACEHOLDER (10/13/2024 7:47 AM CDT) Narrative Addison Chandler CRNA - 10/13/2024 7:47 AM CDT Addison Chandler CRNA 10/13/2024 7:47 AM Airway Patient location: OR Urgency: elective Indications for airway management: anesthesia Difficult airway: no Staff: Supervising provider: Josselyn Bruno MD Placed by: INDUSTRIAL MAINTENANCE MILLWRIGHT: Addison Chandler CRNA Emergent airway documentation: Risks and benefits discussed: yes Consent obtained: yes Consent given by: patient Airway prep: Preoxygenated: yes Patient position: sniffing Mask difficulty assessment: 1 - vent by mask Spontaneous ventilation during airway: absent Sedation level during airway: deep Final airway details: Final airway type: endotracheal airway Tube type: ETT ETT size: 7.0 mm Cuffed: yes Technique used for successful ETT placement: direct laryngoscopy Devices/Methods used in placement: intubating stylet Insertion site: oral Blade type: Morin Blade size: 2 Cormack-Lehane (direct): grade IIa - partial view of glottis Cuff volume: 6 mL Cuff inflated with: air ETT to gums: 21 cm Placement verified by: auscultation and CO2 detection Airway secured with: silk tape Number of attempts: 1 us Josselyn Bruno MD ANESTHESIA ORDERABLES Final Result * ECG 12 lead (10/13/2024 7:04 AM CDT) [facility] Ventricular Rate EKG/Min [address] [facility] Atrial Rate 99 BPM [facility] [place]-Interval (MSEC) 172 ms [facility] QRS-Interval (MSEC) 88 ms [facility] QT-Interval (MSEC) 356 ms [facility] QTc 456 ms [facility] P [place] 52 degrees [facility] R [place] 27 degrees [facility] T [place] 26 degrees [facility] Diagnosis Normal sinus rhythm Left atrial abnormality . Minimal voltage criteria for LVH, may be normal variant ( Ramon product ) When compared with ECG of 18-SEP-2024 09:44, No significant change was found Confirmed by SULTAN CHRISTINA M.D. ([id number]) on 10/13/2024 2:40:51 PM [facility] 10/13/2024 7:04 AM CDT 10/13/2024 2:40 PM CDT us Josselyn Bruno MD ECG ORDERABLES Final Result [facility] * (ABNORMAL) eGFR (10/13/2024 6:03 AM CDT) eGFR 7(L) >=60 mL/min/1. 73 m2 Comment: Interpretive Data Reference Interval Normal >/= 90 mL/min/1.73m2 Mildly decreased* 60 - 89 mL/min/1.73m2 Mildly to moderately decreased 45 - 59 mL/min/1.73m2 Moderately to severely decreased 30 - 44 mL/min/1.73m2 Severely decreased 15 - 29 mL/min/1.73m2 Kidney Failure < 15 mL/min/1.73m2 *Relative to young adult level Estimated glomerular filtration rate is determined by the 2020 CKD-EPI equation recommended by the National Kidney Foundation (A Unifying Approach to GFR Estimation: Recommendations of the NKF-ASK Task Force on Reassessing the Inclusion of Race in Diagnosing Kidney Disease, JASN 2020). The CKD-EPI equation should not be used for patients with unstable renal function and has not been validated in children and those over 70. Current interpretive data was last reviewed 2021. Blood 10/13/2024 6:03 AM CDT 10/13/2024 6:08 AM CDT us Vinayak Santos MD LAB BLOOD ORDERABLES Final Resul t YAW BOOKER [address] [facility] Department [place] [address] * POCT glucose (10/13/2024 6:03 AM CDT) Glucose, POC 137 70 - 199 mg/dL Glucose comment 1 Will Repeat Test YAW BOOKER Blood 10/13/2024 6:03 AM CDT 10/13/2024 6:03 AM CDT Vinayak Santos MD LAB POCT ORDERABLES - DEVICE Fin al Result Performing Organization Address [facility] Co de Phone Number [id number] [employer] [place] [address] * aPTT (10/13/2024 6:03 AM CDT) aPTT 32 22 - 37 sec Comment: Interpretive data aPTT test has not been evaluated for monitoring heparin therapy. The anti-Xa is the preferred test. Current interpretive data was last revised on 2019. Blood 10/13/2024 6:03 AM CDT 10/13/2024 6:08 AM CDT Vinayak Santos MD LAB BLOOD ORDERABLES Final Resul t Performing Organization Address [facility] de Phone Number [address] [address] * Protime-INR (10/13/2024 6:03 AM CDT) PT 13.9 12.0 - 14.6 sec INR 1.1 0.9 - 1.2 YAW Comment: Ref Range High Interpretive data Oral anticoagulant therapeutic ranges: Venous thromboembolism prophylaxis or treatment: 2.0-3.0 CARDIOLOGY Standard range: 2.0-3.0 High-intensity range: 2.5-3.5 Refer to indication-specific guidelines for appropriate target ranges for prosthetic heart valve replacement. Current interpretive data was last revised on 2019. Blood 10/13/2024 6:03 AM CDT 10/13/2024 6:08 AM CDT Result [facility] Vinayak Santos MD LAB BLOOD ORDERABLES Final Resul t Performing Organization Address [facility] Co de Phone Number [address] [employer] [place] [address] * CBC without differential (10/13/2024 6:03 AM CDT) WBC 5.8 3.8 - 9.9 K/cumm Hgb 13.2 11.9 - 15.5 g/dL [facility] Hct 39.2 35.6 - 45.5 % [facility] Plt 188 150 - 400 K/cumm [facility] MPV 10.0 9.1 - 12.3 fL [facility] RBC 4.42 3.90 - 5.20 M/cumm [facility] MCV 88.7 81.3 - 96.4 fL [facility] MCH 29.9 27.1 - 33.3 pg [facility] MCHC 33.7 32.3 - 35.7 g/dL [facility] RDW CV 14.0 11.1 - 14.9 % [facility] RDW SD 45.1 35.7 - 48.1 fL [facility] NRBC abs 0.00 0.00 - 0.01 K/cumm [facility] Blood 10/13/2024 6:03 AM CDT 10/13/2024 6:08 AM CDT Vinayak Santos MD LAB BLOOD ORDERABLES Final Resul t YAW [facility] Department [place] [address] * (ABNORMAL) hCG, blood, quantitative (10/13/2024 6:03 AM CDT) Pathologist [facility] hCG, quant 7.8(H) 0.0 - 5.0 IUnits/L Comment: Interpretive Data Male: < 5 IU/L Non- premenopausal Female: <5 IU/L The [employer] hCG Beta Quant assay procedure was used. Results from different manufacturers or methods may not be comparable. Serial testing should be performed using the same method. Interpretive Data was last revised on 2023 Blood 10/13/2024 6:03 AM CDT 10/13/2024 6:08 AM CDT Vinayak Santos MD LAB BLOOD ORDERABLES Final Resul t Performing Organization Address City/[facility]/ZIP Co de Phone Number YAW [id number] [facility] Department [place] [address] * (ABNORMAL) Basic metabolic panel (10/13/2024 6:03 AM CDT) [facility] Sodium 139 135 - 145 mmol/L Potassium, pl 4.1 3.3 - 4.9 mmol/L [facility] Comment:Hemolyzed; Potassium value may be falsely elevated by as much as 1.0 mmol/L. Suggest redraw and reanalysis. Chloride 93(L) 97 - 110 mmol/L [facility] CO2 29 22 - 32 mmol/L [facility] Anion gap 17(H) 2 - 15 mmol/L [facility] BUN 43(H) 6 - 25 mg/dL [facility] Creatinine 6.65(H) 0.60 - 1.10 mg/dL [facility] Glucose 140 70 - 199 mg/dL [facility] Comment: Interpretive Data Fasting glucose >/= 126 mg/dl is diagnostic for diabetes. Fasting is defined as no caloric intake for at least 8 hours. Fasting glucose between 100 mg/dl to 125 mg/dl is diagnostic of prediabetes. In a patient with classic symptoms of hyperglycemia or hyperglycemic crisis, a random glucose >/= 200 mg/dl is diagnostic for diabetes. In the absence of unequivocal hyperglycemia, results should be confirmed by repeat testing. The classification and Diagnosis of Diabetes Diabetes Care 202; 46: S19-S40. Current interpretive data was last revised 2022. Calcium 9.2 8.5 - 10.3 mg/dL [facility] Blood 10/13/2024 6:03 AM CDT 10/13/2024 6:08 AM CDT Vinayak Santos MD LAB BLOOD ORDERABLES Final Resul t Performing Organization Address City/[facility]/ZIP Co de Phone Number YAW [address] [facility] Department [place] [employer] [place] [address] * POCT hCG, urine (10/13/2024 6:00 AM CDT) [facility] HCG, ur, POC Negative Negative Lot Number [id number] QC Backgroud Clear Acceptable QC Control Line Acceptable Urine 10/13/2024 6:00 AM CDT Vinayak Santos MD POINT OF CARE TEST ORDERABLES Fi nal Result * Intravitreal Injection, Pharmacologic Agent - OS - Left Eye (09/30/2024 10:17 AM CDT) Anatomical Region Laterality Modality Head Other Narrative 09/30/2024 10:17 AM CDT Time Out Informed consent was obtained after all risks, benefits and alternatives were explained to the patient. The patient understood, agreed and wished to proceed. Timeout was completed verifying the patient, procedure, laterality and allergies. Anesthesia Topical anesthesia was used. Anesthetic medications included Lidocaine 2%, Proparacaine 0.5%. The anesthesia lot number is [id number]. The expiration date is . The manufacture of the medication is [email or web address]. Intravitreal Injection, Pharmacologic Agent Preparation included 5% betadine to ocular surface, 10% betadine to eyelids, eyelid speculum. A 30 gauge needle was used. Pharmaceutical Medication: 2 mg aflibercept syringe 2 mg/0.05 mL Route: intravitreal, Site: Left Eye [facility]: 46628-570-85, Lot: [id number], Expiration date: 05/22/2025, Waste: 0 mL The medication administered today was not supplied by the patient or insurance. The medication administered today was not a sample. Post-op Post injection exam found visual acuity is at least hand motion, no retinal detachment, perfused optic nerve. the patient tolerated the procedure. there were no complications during today's treatment. The patient received written and verbal post procedure care education. Post injection medications were not given. The attending physician was present for the entire procedure. Notes Patient signed consent for I'VE OS 09/30/2024 Mann Calvo MD PhD OPHTH CLINIC PROCE LATISHA Final Result * Six Minute Walk - (09/29/2024 8:17 AM CDT) Anatomical Region Laterality Modality PFT Narrative 10/01/2024 5:24 PM CDT Table formatting from the original result was not included. Teresa Patel, MUSIC AGENT on 09/29/2024 8:39 AM Table formatting from the original note was not included. 6 MINUTE WALK RESULTS Name: Jennifer Carter : 1975 DOS: 09/29/2024 Diagnosis: Ktx eval MUSIC AGENT performed walk: Jeffrey Patel Rest: 1 min 0 LPM SPO2: 99 % HR: 77 PRATIK: 0 BP: 180/88 Rest: 2 min LPM SPO2: % HR: Walk: 1 min 0 LPM SPO2: 100 % HR: 79 Walk: 2 min 0 LPM SPO2: 99 % HR: 85 Walk: 3 min 0 LPM SPO2: 100 % HR: 87 PRATIK: 2 Walk: 4 min 0 LPM SPO2: 100 % HR: 89 Walk: 5 min 0 LPM SPO2: 100 % HR: 92 Walk: 6 min 0 LPM SPO2: 100 % HR: 91 PRATIK: 3 Post: 1 min LPM SPO2: % HR: Post: 2 min 0 LPM SPO2: 99 % HR: 80 PRATIK: 2 BP: 199/88 Walking SpO2 ranged from: 99-100% Walking HR ranged from: 79-92 bpm Number of feet walked: 681 Number of rest breaks: 0 O2 Recommendation Restin LPM Midwalk: 0 LPM Exercise: 0 LPM Patient's current exercise program: none Physician Interpretation: At rest breathing room air oxygen level is adequate. Heart rate increases normally with exercise. With exercise oxygen level is stable. Oxygen prescription: RA rest, RA exercise. us Ginette Mcgregor MD RESPIRATORY CARE OR DERABLES Final Result * TRANSTHORACIC ECHO (TTE) COMPLETE W DOPPLER/CF WO CONTRAST (09/29/2024 8:10 AM CDT) Anatomical Region Laterality Modality Ultrasound 09/29/2024 7:18 AM CDT Narrative 09/29/2024 2:26 PM CDT [facility] [place] [address] Transthoracic Echocardiographic Report Patient Name: JENNIFER CARTER : 1975 (49y 8m) Gender: F Study Date: 09/29/2024 07:18:43 AM Ht(Inch): 68 Wt(Lb): 162.92 BSA: 1.88 Training Designer: LEANDRO Banda Location: [facility] Order Provider: GINETTE MCGREGOR Heart Rate: 73 BMI: 24.77 BP: 179 / 88 Quality: The study images were of technically good quality. Ref Provider: BIGGGINETTE PROCEDURES: Echocardiographic Report: [id number], [id number]) Transthoracic complete echo with strain imaging, 2D, spectral and tissue Doppler, color flow Doppler, M-mode. INDICATIONS: Z01.818 Encounter for other preprocedural examination, N18.6 End stage renal disease, and I27.20 Pulmonary hypertension, unspecified. FINDINGS: Left Ventricle: Moderately dilated left ventricle based on volume index. Concentric LV hypertrophy. Mild concentric left ventricular hypertrophy. Normal left ventricular systolic function. The Ejection Fraction (Wyatt's) is measured at 55 %. Left ventricular diastolic parameters are consistent with Grade II diastolic dysfunction (increased mean LA pressure). The average global longitudinal strain rate is abnormal. The LV global strain is: -14.0 %. Right Ventricle: Normal right ventricular size. Normal right ventricular systolic function. Left Atrium: The left atrium is normal in size. Right Atrium: The right atrium is normal in size. Mitral Valve: Normal mitral valve leaflet structure. Mild mitral annular calcification. There is mild mitral valve regurgitation. Aortic Valve: Trileaflet aortic valve. No aortic regurgitation seen. No aortic valve stenosis. Tricuspid Valve: The tricuspid valve demonstrates normal leaflet structure. No tricuspid regurgitation seen. PASP cannot be evaluated due to lack of adequate TR jet. Pulmonic Valve: The pulmonic valve demonstrates normal leaflet structure. There is mild pulmonic regurgitation. Pericardium: Physiologic pericardial effusion. Aorta: The aortic root is normal in size. The aortic root is normal in size when indexed. The ascending aorta is normal in size when indexed. IVC: IVC is normal in size. The IVC (inferior vena cava) was <2.1 cm and collapsibility >50%. The estimated RA pressure is 3 mmHg. CONCLUSIONS: 1. Concentric LV hypertrophy. Mild concentric left ventricular hypertrophy. Normal left ventricular systolic function. The Ejection Fraction (Wyatt's) is measured at 55 %. Left ventricular diastolic parameters are consistent with Grade II diastolic dysfunction (increased mean LA pressure). The average global longitudinal strain rate is abnormal. 2. Normal right ventricular size. Normal right ventricular systolic function. 3. The left atrium is normal in size. 4. Normal mitral valve leaflet structure. Mild mitral annular calcification. There is mild mitral valve regurgitation. 5. The tricuspid valve demonstrates normal leaflet structure. No tricuspid regurgitation seen. PASP cannot be evaluated due to lack of adequate TR jet. 6. Physiologic pericardial effusion. 7. IVC is normal in size. The IVC (inferior vena cava) was <2.1 cm and collapsibility >50%. The estimated RA pressure is 3 mmHg. MEASUREMENTS: 2D/MM Value Range Doppler Value Range LVIDd 2D 4.41 cm [ 3.80 - 5.20 ] AV Peak Ney 1.17 m/s [ 1.00 - 1.70 ] LVIDs 2D 3.17 cm [ 2.20 - 3.50 ] AV Mean PG 2.81 mmHg IVSd 2D 1.42 cm [ 0.60 - 0.90 ] AV VTI 25.38 cm LVPWd 2D 1.42 cm [ 0.60 - 0.90 ] LVOT VTI 21.95 cm LV Thickness Ratio 1.00 LVOT Diam 2.22 cm LV Mass Index 2D 132.47 g/m2 LVOT/AV VTI 0.86 - Dimensionless index (DVI) RWT 0.64 MV E Peak Ney 0.71 m/s [ 0.60 - 1.30 ] EDV Mod BP 146.01 ml [ 46.00 - 106.00 ] MV A Peak Ney 0.90 m/s [ 1.00 - 1.20 ] LV EDV Index 77.66 ml/m2 MV E/A 0.79 ratio [ 0.80 - 1.50 ] ESV Mod BP 66.17 ml [ 14.00 - 42.00 ] Med E` Ney 3.30 cm/sec [ 8.00 - 15.00 ] EF Mod BP 55 % [ 54 - 74 ] Lat E` Ney 6.19 cm/sec [ 10.00 - 15.00 ] LV GLS -14.0 % [ -18.0 - -16.0 ] Average E/E` 14.96 LA Volume Index 34.32 ml/m2 [ 16.00 - 34.00 ] RV S` 7.83 cm/sec RV Base Dimen 2D 3.3 cm [ 2.5 - 4.2 ] RA Pressure 3.00 mmHg TAPSE 1.87 cm [ 1.71 - 5.00 ] RA Volume Index 15.16 ml/m2 AoR Diam 2D 3.17 cm [ 2.70 - 3.70 ] Asc Ao Diam 2D 3.23 cm - COMPARISONS: Compared to prior study completed on 08/25/2024. No change compared to prior study. ATTESTATION: I have reviewed and interpreted the pertinent images and measurements of this study. I attest to the conclusions in the final report that is provided above. DISCLAIMER: The study images and the final report will be retained in the patient chart by the Echo Laboratory for the legally required time period. This chart constitutes the legal record of any testing performed. Electronically Signed By: Anish Antonio M.D. 09/29/2024 2:25:41 PM CDT Electronically Signed By: Anish Antonio M.D. 09/29/2024 2:25:41 PM CDT Procedure Note Anish Antonio MD - 09/29/2024 [facility] [place] [address] Transthoracic Echocardiographic Report Patient Name: JENNIFER CARTER : 1975 (49y 8m) Gender: F Study Date: 09/29/2024 07:18:43 AM Ht(Inch): 68 Wt(Lb): 162.92 BSA: 1.88 Training Designer: LEANDRO Banda Location: [facility] Order Provider:GINETTE MCGREGOR Heart Rate: 73 BMI: 24.77 BP: 179 / 88 Quality: The study images were oftechnically good quality. Ref Provider: GINETTE MCGREGOR PROCEDURES: Echocardiographic Report: ([id number]) Transthoracic complete echo withstrain imaging, 2D, spectral and tissue Doppler, color flow Doppler, M-mode. INDICATIONS: Z01.818 Encounter for other preprocedural examination, N18.6 End stagerenal disease, and I27.20 Pulmonary hypertension, unspecified. FINDINGS: Left Ventricle: Moderately dilated left ventricle based on volume index.Concentric LV hypertrophy. Mild concentric left ventricular hypertrophy. Normal leftventricular systolic function. The Ejection Fraction (Wyatt's) is measured at 55 %.Left ventricular diastolic parameters are consistent with Grade II diastolicdysfunction (increased mean LA pressure). The average global longitudinal strain rateis abnormal. The LV global strain is: -14.0 %. Right Ventricle: Normal right ventricular size. Normal right ventricularsystolic function. Left Atrium: The left atrium is normal in size. Right Atrium: The right atrium is normal in size. Mitral Valve: Normal mitral valve leaflet structure. Mild mitral annularcalcification. There is mild mitral valve regurgitation. Aortic Valve: Trileaflet aortic valve. No aortic regurgitation seen. Noaortic valve stenosis. Tricuspid Valve: The tricuspid valve demonstrates normal leafletstructure. No tricuspid regurgitation seen. PASP cannot be evaluated due to lack of adequate TRjet. Pulmonic Valve: The pulmonic valve demonstrates normal leaflet structure.There is mild pulmonic regurgitation. Pericardium: Physiologic pericardial effusion. Aorta: The aortic root is normal in size. The aortic root is normal insize when indexed. The ascending aorta is normal in size when indexed. IVC: IVC is normal in size. The IVC (inferior vena cava) was <2.1 cm andcollapsibility >50%. The estimated RA pressure is 3 mmHg. CONCLUSIONS: 1. Concentric LV hypertrophy. Mild concentric left ventricularhypertrophy. Normal left ventricular systolic function. The Ejection Fraction (Wyatt's) ismeasured at 55 %. Left ventricular diastolic parameters are consistent with Grade IIdiastolic dysfunction (increased mean LA pressure). The average global longitudinal strain rateis abnormal. 2. Normal right ventricular size. Normal right ventricular systolicfunction. 3. The left atrium is normal in size. 4. Normal mitral valve leaflet structure. Mild mitral annularcalcification. There is mild mitral valve regurgitation. 5. The tricuspid valve demonstrates normal leaflet structure. No tricuspidregurgitation seen. PASP cannot be evaluated due to lack of adequate TR jet. 6. Physiologic pericardial effusion. 7. IVC is normal in size. The IVC (inferior vena cava) was <2.1 cm andcollapsibility >50%. The estimated RA pressure is 3 mmHg. MEASUREMENTS: 2D/MM Value Range DopplerValue Range LVIDd 2D 4.41 cm [ 3.80 - 5.20 ] AV Peak Vel1.17 m/s [ 1.00 - 1.70 ] LVIDs 2D 3.17 cm [ 2.20 - 3.50 ] AV Mean PG2.81 mmHg IVSd 2D 1.42 cm [ 0.60 - 0.90 ] AV VTI25.38 cm LVPWd 2D 1.42 cm [ 0.60 - 0.90 ] LVOT VTI21.95 cm LV Thickness Ratio 1.00 LVOT Diam2.22 cm LV Mass Index 2D 132.47 g/m2 LVOT/AV VTI0.86 - Dimensionless index (DVI) RWT 0.64 MV E Peak Vel0.71 m/s [ 0.60 - 1.30 ] EDV Mod BP 146.01 ml [ 46.00 - 106.00 ] MV A Peak Vel0.90 m/s [ 1.00 - 1.20 ] LV EDV Index 77.66 ml/m2 MV E/A0.79 ratio [ 0.80 - 1.50 ] ESV Mod BP 66.17 ml [ 14.00 - 42.00 ] Med E` Vel3.30 cm/sec [ 8.00 - 15.00 ] EF Mod BP 55 % [ 54 - 74 ] Lat E` Vel6.19 cm/sec [ 10.00 - 15.00 ] LV GLS -14.0 % [ -18.0 - -16.0 ] Average E/E`14.96 LA Volume Index 34.32 ml/m2 [ 16.00 - 34.00 ] RV S`7.83 cm/sec RV Base Dimen 2D 3.3 cm [ 2.5 - 4.2 ] RA Pressure3.00 mmHg TAPSE 1.87 cm [ 1.71 - 5.00 ] RA Volume Index15.16 ml/m2 AoR Diam 2D 3.17 cm [ 2.70 - 3.70 ] Asc Ao Diam 2D3.23 cm - COMPARISONS: Compared to prior study completed on 08/25/2024. No change compared [facility] study. ATTESTATION: I have reviewed and interpreted the pertinent images and measurements ofthis study. I attest to the conclusions in the final report that is provided above. DISCLAIMER: The study images and the final report will be retained in the patientchart by the Echo Laboratory for the legally required time period. This chart constitutesthe legal record of any testing performed. Electronically Signed By: Anish Antonio M.D. 09/29/2024 2:25:41 PM CDT Electronically Signed By: Anish Antonio M.D. 09/29/2024 2:25:41 PM CDT us Ginette Mcgregor MD CV ECHO PROCEDURES Final Result * POCT glucose (09/21/2024 11:53 AM TAMALE MAKER) Glucose, POC 152 70 - 199 mg/dL Blood 09/21/2024 11:5 3 AM TAMALE MAKER 09/21/2024 11:53 AM TAMALE MAKER Galo Smith MD LAB POCT ORDERABLES - D EVICE Final Result Performing Organization Address [facility] Co de Phone Number [address] [employer] [place] [address] * POCT glucose (09/21/2024 7:50 AM TAMALE MAKER) Glucose, POC 171 70 - 199 mg/dL Blood 09/21/2024 7:50 AM TAMALE MAKER 09/21/2024 7:50 AM TAMALE MAKER Galo Smith MD LAB POCT ORDERABLES - D EVICE Final Result Performing Organization Address [facility] de Phone Number [address] [employer] [place] [address] * (ABNORMAL) eGFR (09/21/2024 4:31 AM TAMALE MAKER) [facility] eGFR 10(L) >=60 mL/min/1. 73 m2 Comment: Interpretive Data Reference Interval Normal >/= 90 mL/min/1.73m2 Mildly decreased* 60 - 89 mL/min/1.73m2 Mildly to moderately decreased 45 - 59 mL/min/1.73m2 Moderately to severely decreased 30 - 44 mL/min/1.73m2 Severely decreased 15 - 29 mL/min/1.73m2 Kidney Failure < 15 mL/min/1.73m2 *Relative to young adult level Estimated glomerular filtration rate is determined by the 2020 CKD-EPI equation recommended by the National Kidney Foundation (A Unifying Approach to GFR Estimation: Recommendations of the NKF-ASK Task Force on Reassessing the Inclusion of Race in Diagnosing Kidney Disease, JASN 202). The CKD-EPI equation should not be used for patients with unstable renal function and has not been validated in children and those over 70. Current interpretive data was last reviewed 2021. Blood 09/21/2024 4:31 AM TAMALE MAKER 09/21/2024 5:12 AM TAMALE MAKER us Galo Smith MD LAB BLOOD ORDERABLES Fi nal Result [facility] [address] [facility] Department [place] [address] * Differential, auto (09/21/2024 4:31 AM TAMALE MAKER) Pathologist [facility] Neutrophil abs 2.8 1.5 - 6.5 K/cumm Imm gran abs 0.0 0.0 - 0.1 K/cumm [facility] Lymphocyte abs 1.5 0.8 - 3.3 K/cumm [facility] Monocyte abs 0.4 0.2 - 0.8 K/cumm [facility] Eosinophil abs 0.1 0.0 - 0.5 K/cumm [facility] Basophil abs 0.1 0.0 - 0.1 K/cumm [facility] Neutrophil pct 57.2 % [facility] Comment: Interpretive Data Percent cell count reference ranges are not reported, since discordance with absolute values may lead to misinterpretation of CBC data. Current Interpretive Data was last revised on 2017. Imm gran pct 0.2 % [facility] Comment: Interpretive Data Percent cell count reference ranges are not reported, since discordance with absolute values may lead to misinterpretation of CBC data. Current Interpretive Data was last revised on 2017. Lymphocyte pct 30.6 % [facility] Comment: Interpretive Data Percent cell count reference ranges are not reported, since discordance with absolute values may lead to misinterpretation of CBC data. Current Interpretive Data was last revised on 2017. Monocyte pct 8.8 % [facility] Comment: Interpretive Data Percent cell count reference ranges are not reported, since discordance with absolute values may lead to misinterpretation of CBC data. Current Interpretive Data was last revised on 2017. Eosinophil pct 2.2 % [facility] Comment: Interpretive Data Percent cell count reference ranges are not reported, since discordance with absolute values may lead to misinterpretation of CBC data. Current Interpretive Data was last revised on 2017. Basophil pct 1.0 % [facility] Comment: Interpretive Data Percent cell count reference ranges are not reported, since discordance with absolute values may lead to misinterpretation of CBC data. Current Interpretive Data was last revised on 2017. Blood 09/21/2024 4:31 AM TAMALE MAKER 09/21/2024 5:11 AM TAMALE MAKER Galo Smith MD LAB BLOOD ORDERABLES Fi nal Result Performing Organization Address [facility]/ZIP Co de Phone Number [facility] [address] [place] [employer] [place] [address] * (ABNORMAL) CBC with auto differential (09/21/2024 4:31 AM TAMALE MAKER) Pathologist [facility] WBC 4.9 3.8 - 9.9 K/cumm Hgb 14.1 11.9 - 15.5 g/dL [facility] Hct 44.0 35.6 - 45.5 % [facility] Plt 163 150 - 400 K/cumm [facility] MPV 10.0 9.1 - 12.3 fL [facility] RBC 4.76 3.90 - 5.20 M/cumm [facility] MCV 92.4 81.3 - 96.4 fL [facility] MCH 29.6 27.1 - 33.3 pg [facility] MCHC 32.0(L) 32.3 - 35.7 g/dL [facility] RDW CV 14.6 11.1 - 14.9 % [facility] RDW SD 49.9(H) 35.7 - 48.1 fL [facility] NRBC abs 0.00 0.00 - 0.01 K/cumm [facility] Blood 09/21/2024 4:31 AM TAMALE MAKER 09/21/2024 5:11 AM TAMALE MAKER Galo Smith MD LAB BLOOD ORDERABLES Fi nal Result Performing Organization Address City/[facility]/ZIP Co de Phone Number [address] [place] [employer] [address] * Magnesium (09/21/2024 4:31 AM TAMALE MAKER) [facility] Magnesium 2.5 1.4 - 2.5 mg/dL Blood 09/21/2024 4:31 AM TAMALE MAKER 09/21/2024 5:12 AM TAMALE MAKER Galo Smith MD LAB BLOOD ORDERABLES nal Result Performing Organization Address [facility] Co de Phone Number [address] [employer] [place] [address] * (ABNORMAL) Hepatic function panel (09/21/2024 4:31 AM TAMALE MAKER) [facility] Bilirubin, total 0.2 0.1 - 1.2 mg/dL Bilirubin, direct 0.1 0.1 - 0.3 mg/dL [facility] Protein, pl 7.8 6.5 - 8.5 g/dL [facility] Albumin 4.0 3.5 - 5.0 g/dL [facility] Alk phos 143(H) 40 - 130 Units/L [facility] ALT 11 7 - 45 Units/L [facility] AST 25 10 - 45 Units/L [facility] Blood 09/21/2024 4:31 AM TAMALE MAKER 09/21/2024 5:12 AM TAMALE MAKER Galo Smith MD LAB BLOOD ORDERABLES nal Result Performing Organization Address [facility] Co de Phone Number [address] [employer] [place] [address] * (ABNORMAL) Basic metabolic panel (09/21/2024 4:31 AM TAMALE MAKER) [facility] Sodium 136 135 - 145 mmol/L Potassium, pl 4.2 3.3 - 4.9 mmol/L [facility] Chloride 94(L) 97 - 110 mmol/L [facility] CO2 27 22 - 32 mmol/L [facility] Anion gap 15 2 - 15 mmol/L [facility] BUN 33(H) 6 - 25 mg/dL [facility] Creatinine 5.15(H) 0.60 - 1.10 mg/dL [facility] Glucose 155 70 - 199 mg/dL [facility] Comment: Interpretive Data Fasting glucose >/= 126 mg/dl is diagnostic for diabetes. Fasting is defined as no caloric intake for at least 8 hours. Fasting glucose between 100 mg/dl to 125 mg/dl is diagnostic of prediabetes. In a patient with classic symptoms of hyperglycemia or hyperglycemic crisis, a random glucose >/= 200 mg/dl is diagnostic for diabetes. In the absence of unequivocal hyperglycemia, results should be confirmed by repeat testing. The classification and Diagnosis of Diabetes Diabetes Care 2021; 46: S19-S40. Current interpretive data was last revised 2022. Calcium 8.8 8.5 - 10.3 mg/dL [facility] Blood 09/21/2024 4:31 AM TAMALE MAKER 09/21/2024 5:12 AM TAMALE MAKER Galo Smith MD LAB BLOOD ORDERABLES Fi nal Result Performing Organization Address City/[facility]/ZIP Co de Phone Number [address] [place] [employer] [address] * POCT glucose (09/20/2024 8:07 PM TAMALE MAKER) Glucose, POC 105 70 - 199 mg/dL Glucose comment 1 Use This Result [facility] Glucose comment 2 RN/ Notified [facility] Blood 09/20/2024 8:07 PM TAMALE MAKER 09/20/2024 8:07 PM TAMALE MAKER us Galo Smith MD LAB POCT ORDERABLES - D EVICE Final Result [address] [place] [address] * POCT glucose (09/20/2024 4:37 PM TAMALE MAKER) Glucose, POC 101 70 - 199 mg/dL Glucose comment 1 Use This Result [facility] Glucose comment 2 RN/MD Notified [facility] Blood 09/20/2024 4:37 PM TAMALE MAKER 09/20/2024 4:37 PM TAMALE MAKER us Galo Smith MD LAB POCT ORDERABLES - D EVICE Final Result [facility] [address] [facility] Department [place] [address] * CT Head WO Contrast (09/20/2024 1:57 PM TAMALE MAKER) Anatomical Region Laterality Modality Head and Neck N/A Computed Tomogra phy 09/20/2024 2:29 PM TAMALE MAKER Narrative 09/20/2024 2:34 PM TAMALE MAKER EXAM DESCRIPTION: CT HEAD WO CONTRAST REASON FOR STUDY: persistent nausea and lightheadedness Pt having persistent nausea and lightheadedness Hx: diabetes, htn, vertigo, vitrectomy, cataract surgery TECHNIQUE: Axial images acquired through the brain without intravenous contrast. Images stored on PACS. Automated exposure control was used as a dose optimization technique for this examination. COMPARISON: None available FINDINGS: BRAIN: No hemorrhage, edema or mass effect. No recent infarct. The hancock-white matter differentiation is preserved. Normal size and morphology of the ventricular system. No acute intraventricular hemorrhage. Basal cisterns are patent. No midline shift. EXTRA-AXIAL SPACES: No fluid collections. No masses. CALVARIUM: No fracture. SINUSES/MASTOIDS: No fluid or mucosal thickening. ORBITS: No significant abnormality. OTHER: No other significant abnormality. IMPRESSION: 1. No acute intracranial findings. THIS IS AN ELECTRONICALLY VERIFIED FINAL REPORT 09/20/2024 2:34 PM - Electronically signed by Carmen Castellon M.D. AT T: Report ID: [id number] Reading Location: [id number] Procedure Note Carmen Castellon MD - 09/20/2024 EXAM DESCRIPTION: CT HEAD WO CONTRAST REASON FOR STUDY: persistent nausea and lightheadedness Pt having persistent nausea and lightheadedness Hx: diabetes, htn, vertigo, vitrectomy, cataract surgery TECHNIQUE: Axial images acquired through the brain without intravenous contrast. Images stored on PACS. Automated exposure control was used asa dose optimization technique for this examination. COMPARISON: None available FINDINGS: BRAIN: No hemorrhage, edema or mass effect. No recent infarct. The hancock-white matter differentiation is preserved. Normal size and morphology of the ventricular system. No acute intraventricularhemorrhage. Basal cisterns are patent. No midline shift. EXTRA-AXIAL SPACES: No fluid collections. No masses. CALVARIUM: No fracture. SINUSES/MASTOIDS: No fluid or mucosal thickening. ORBITS: No significant abnormality. OTHER: No other significant abnormality. IMPRESSION: 1. No acute intracranial findings. THIS IS AN ELECTRONICALLY VERIFIED FINAL REPORT 09/20/2024 2:34 PM - Electronically signed by Carmen Castellon M.D. AT T: Report ID: [id number] Reading Location: [place] [address] Galo Smith MD IMG CT PROCEDURES Final Result * POCT glucose (09/20/2024 1:10 PM TAMALE MAKER) Glucose, POC 97 70 - 199 mg/dL Blood 09/20/2024 1:10 PM TAMALE MAKER 09/20/2024 1:10 PM TAMALE MAKER Galo Smith MD LAB POCT ORDERABLES - D EVICE Final Result Performing Organization Address [facility] Co ut Phone Number [facility] [address] [facility] Department of Laboratories [place], [place] [id number] * POCT glucose (09/20/2024 8:20 AM TAMALE MAKER) Glucose, POC 159 70 - 199 mg/dL Glucose comment 1 Use This Result [facility] Glucose comment 2 RN/MD Notified [facility] Blood 09/20/2024 8:20 AM TAMALE MAKER 09/20/2024 8:20 AM TAMALE MAKER us Galo Smith MD LAB POCT ORDERABLES - D EVICE Final Result Performing Organization Address City/State/[facility] de Phone Number [facility] [address] Department [place] [address] * (ABNORMAL) eGFR (09/20/2024 6:29 AM TAMALE MAKER) [facility] eGFR 7(L) >=60 mL/min/1. 73 m2 Comment: Interpretive Data Reference Interval Normal >/= 90 mL/min/1.73m2 Mildly decreased* 60 - 89 mL/min/1.73m2 Mildly to moderately decreased 45 - 59 mL/min/1.73m2 Moderately to severely decreased 30 - 44 mL/min/1.73m2 Severely decreased 15 - 29 mL/min/1.73m2 Kidney Failure < 15 mL/min/1.73m2 *Relative to young adult level Estimated glomerular filtration rate is determined by the 2020 CKD-EPI equation recommended by the National Kidney Foundation (A Unifying Approach to GFR Estimation: Recommendations of the NKF-ASK Task Force on Reassessing the Inclusion of Race in Diagnosing Kidney Disease, JASN 2020). The CKD-EPI equation should not be used for patients with unstable renal function and has not been validated in children and those over 70. Current interpretive data was last reviewed 2021. Blood 09/20/2024 6:29 AM TAMALE MAKER 09/20/2024 7:32 AM TAMALE MAKER us Galo Smith MD LAB BLOOD ORDERABLES Fi nal Result Performing Organization Address [facility] Co de Phone Number [facility] [address] Department [place] [address] * Differential, auto (09/20/2024 6:29 AM TAMALE MAKER) [facility] Neutrophil abs 4.3 1.5 - 6.5 K/cumm Imm gran abs 0.0 0.0 - 0.1 K/cumm [facility] Lymphocyte abs 1.2 0.8 - 3.3 K/cumm [facility] Monocyte abs 0.4 0.2 - 0.8 K/cumm [facility] Eosinophil abs 0.1 0.0 - 0.5 K/cumm [facility] Basophil abs 0.1 0.0 - 0.1 K/cumm [facility] Neutrophil pct 70.8 % [facility] Comment: Interpretive Data Percent cell count reference ranges are not reported, since discordance with absolute values may lead to misinterpretation of CBC data. Current Interpretive Data was last revised on 2017. Imm gran pct 0.3 % [facility] Comment: Interpretive Data Percent cell count reference ranges are not reported, since discordance with absolute values may lead to misinterpretation of CBC data. Current Interpretive Data was last revised on 2017. Lymphocyte pct 19.7 % [facility] Comment: Interpretive Data Percent cell count reference ranges are not reported, since discordance with absolute values may lead to misinterpretation of CBC data. Current Interpretive Data was last revised on 2017. Monocyte pct 6.9 % [facility] Comment: Interpretive Data Percent cell count reference ranges are not reported, since discordance with absolute values may lead to misinterpretation of CBC data. Current Interpretive Data was last revised on 2017. Eosinophil pct 1.5 % [facility] Comment: Interpretive Data Percent cell count reference ranges are not reported, since discordance with absolute values may lead to misinterpretation of CBC data. Current Interpretive Data was last revised on 2017. Basophil pct 0.8 % [facility] Comment: Interpretive Data Percent cell count reference ranges are not reported, since discordance with absolute values may lead to misinterpretation of CBC data. Current Interpretive Data was last revised on 2017. Blood 09/20/2024 6:29 AM TAMALE MAKER 09/20/2024 7:32 AM TAMALE MAKER us Galo Smith MD LAB BLOOD ORDERABLES Fi nal Result [facility] [address] [facility] Department [place] [address] * (ABNORMAL) CBC with auto differential (09/20/2024 6:29 AM TAMALE MAKER) Pathologist [facility] WBC 6.1 3.8 - 9.9 K/cumm Hgb 13.3 11.9 - 15.5 g/dL [facility] Hct 41.0 35.6 - 45.5 % [facility] Plt 187 150 - 400 K/cumm [facility] MPV 10.9 9.1 - 12.3 fL [facility] RBC 4.43 3.90 - 5.20 M/cumm [facility] MCV 92.6 81.3 - 96.4 fL [facility] MCH 30.0 27.1 - 33.3 pg [facility] MCHC 32.4 32.3 - 35.7 g/dL [facility] RDW CV 14.6 11.1 - 14.9 % [facility] RDW SD 49.1(H) 35.7 - 48.1 fL [facility] NRBC abs 0.00 0.00 - 0.01 K/cumm [facility] Blood 09/20/2024 6:29 AM TAMALE MAKER 09/20/2024 7:32 AM TAMALE MAKER Galo Smith MD LAB BLOOD ORDERABLES Fi nal Result Performing Organization Address [facility] Co de Phone Number [address] [place] [employer] [place] [address] * Magnesium (09/20/2024 6:29 AM TAMALE MAKER) Magnesium 2.4 1.4 - 2.5 mg/dL Blood 09/20/2024 6:29 AM TAMALE MAKER 09/20/2024 7:32 AM TAMALE MAKER Galo Smith MD LAB BLOOD ORDERABLES Fi nal Result Performing Organization Address City/[facility] Co de Phone Number [address] [employer] [place] [address] * Lipase (09/20/2024 6:29 AM TAMALE MAKER) Lipase 56 10 - 99 Units/L Blood 09/20/2024 6:29 AM TAMALE MAKER 09/20/2024 7:32 AM TAMALE MAKER Galo Smith MD LAB BLOOD ORDERABLES Fi nal Result Performing Organization Address [facility] de Phone Number [address] [employer] [place] [address] * (ABNORMAL) Hepatic function panel (09/20/2024 6:29 AM TAMALE MAKER) [facility] Bilirubin, total 0.3 0.1 - 1.2 mg/dL Bilirubin, direct 0.1 0.1 - 0.3 mg/dL [facility] Protein, pl 7.8 6.5 - 8.5 g/dL [facility] Albumin 4.2 3.5 - 5.0 g/dL [facility] Alk phos 145(H) 40 - 130 Units/L [facility] ALT 15 7 - 45 Units/L [facility] AST 24 10 - 45 Units/L [facility] Blood 09/20/2024 6:29 AM TAMALE MAKER 09/20/2024 7:32 AM TAMALE MAKER Galo Smith MD LAB BLOOD ORDERABLES [facility] Result Performing Organization Address [facility] de Phone Number [address] [employer] [place] [address] * (ABNORMAL) Basic metabolic panel (09/20/2024 6:29 AM TAMALE MAKER) [facility] Sodium 136 135 - 145 mmol/L Potassium, pl 4.4 3.3 - 4.9 mmol/L [facility] Chloride 92(L) 97 - 110 mmol/L [facility] CO2 29 22 - 32 mmol/L [facility] Anion gap 15 2 - 15 mmol/L [facility] BUN 67(H) 6 - 25 mg/dL [facility] Creatinine 6.77(H) 0.60 - 1.10 mg/dL [facility] Glucose 194 70 - 199 mg/dL [facility] Comment: Interpretive Data Fasting glucose >/= 126 mg/dl is diagnostic for diabetes. Fasting is defined as no caloric intake for at least 8 hours. Fasting glucose between 100 mg/dl to 125 mg/dl is diagnostic of prediabetes. In a patient with classic symptoms of hyperglycemia or hyperglycemic crisis, a random glucose >/= 200 mg/dl is diagnostic for diabetes. In the absence of unequivocal hyperglycemia, results should be confirmed by repeat testing. The classification and Diagnosis of Diabetes Diabetes Care 2021; 46: S19-S40. Current interpretive data was last revised 2022. Calcium 8.7 8.5 - 10.3 mg/dL [facility] Blood 09/20/2024 6:29 AM TAMALE MAKER 09/20/2024 7:32 AM TAMALE MAKER Galo Smith MD LAB BLOOD ORDERABLES Fi nal Result Performing Organization Address City/[facility]/ZIP Co de Phone Number [address] [employer] [place] [address] * POCT glucose (09/20/2024 6:19 AM TAMALE MAKER) Glucose, POC 196 70 - 199 mg/dL Glucose comment 1 Use This Result [facility] Glucose comment 2 RN/MD Notified [facility] Blood 09/20/2024 6:19 AM TAMALE MAKER 09/20/2024 6:19 AM TAMALE MAKER Galo Smith MD LAB POCT ORDERABLES - D EVICE Final Result Performing Organization Address [facility] Co de Phone Number [address] [employer] [place] [place] [address] * POCT glucose (09/19/2024 8:26 PM TAMALE MAKER) Glucose, POC 149 70 - 199 mg/dL Glucose comment 1 Use This Result [facility] Glucose comment 2 RN/MD Notified [facility] Blood 09/19/2024 8:26 PM TAMALE MAKER 09/19/2024 8:26 PM TAMALE MAKER Galo Smith MD LAB POCT ORDERABLES - D EVICE Final Result Performing Organization Address City/[facility]/ZIP Co de Phone Number [address] [employer] [place] [place] [address] * POCT glucose (09/19/2024 4:43 PM TAMALE MAKER) Glucose, POC 177 70 - 199 mg/dL Blood 09/19/2024 4:43 PM TAMALE MAKER 09/19/2024 4:43 PM TAMALE MAKER us Galo Smith MD LAB POCT ORDERABLES - D EVICE Final Result [facility] [address] [facility] Department [place] [address] * CT Abdomen Pelvis WO Contrast (09/19/2024 1:08 PM TAMALE MAKER) Anatomical Region Laterality Modality Body N/A Computed Tomogra phy 09/19/2024 1:14 PM TAMALE MAKER Narrative 09/19/2024 1:18 PM TAMALE MAKER EXAM DESCRIPTION: CT ABDOMEN PELVIS WO CONTRAST REASON FOR STUDY: Nausea Nausea. Patient is end-stage renal disease who comes in for vomiting not feeling well for the last few days, she felt some body aches, fatigue, weakness. Hx: Diabetes, CKD, HTN TECHNIQUE: CT scan of the abdomen and pelvis performed without intravenous and without oral contrast using helical scanning technique. Reconstructed coronal and sagittal MPR images reviewed. All images stored on PACS. Automated exposure control was used as a dose optimization technique for this examination. COMPARISON: 09/18/2024 FINDINGS: The sensitivity for detection of visceral lesions is diminished without the use of intravenous contrast. LOWER CHEST: There is cardiomegaly. There is no definite evidence of pericardial effusion. Right-sided dialysis catheter is noted with its distal tip in the right atrium. There are mild atherosclerotic changes of the aorta. There is minimal to mild bibasilar subsegmental atelectasis and scarring. LIVER: The liver is grossly stable in size and contour. GALLBLADDER: Grossly unremarkable. BILE DUCTS: No intrahepatic or extrahepatic ductal dilatation. SPLEEN: The spleen is grossly stable in size and unremarkable. PANCREAS: The pancreas has a grossly stable unenhanced CT appearance. ADRENALS: The bilateral adrenal glands are grossly stable and unremarkable. KIDNEYS/URINARY TRACT: There is no definite unenhanced CT evidence of a focal renal lesion. There is a 0.3 cm nonobstructing left renal calculus. There is no definite evidence of hydronephrosis or hydroureter. There is redemonstration of the 0.5 cm calculus in the mid left ureter, similar in position in comparison to the prior study. There is circumferential mucosal thickening of the urinary bladder. There is air noted within the urinary bladder, which is likely related to recent instrumentation. GI: There is no definite evidence of a bowel obstruction. There is mild mucosal thickening of the small bowel, which is most significant proximally. The appendix is visualized without definite evidence of pericecal or periappendiceal inflammatory changes to suggest appendicitis. There are scattered colonic diverticula without definite evidence of diverticulitis. There is a [id number] amount of retained fecal debris in the colon. There is no definite evidence of free air or fluid in the abdomen and pelvis. There is no definite unenhanced CT evidence of lymphadenopathy in the abdomen and pelvis. REPRODUCTIVE: There is an intrauterine device noted in the uterus. There is redemonstration of the lobulated and bulky appearing uterus, which is likely related to underlying fibroid changes. MUSCULOSKELETAL: There are mild degenerative changes of the spine. OTHER: No other abnormality. IMPRESSION: No definite evidence of bowel obstruction. Redemonstration of the 0.5 cm calculus in the mid left ureter, similar in position in comparison to the prior study. No definite evidence of hydronephrosis or hydroureter. Punctate nonobstructing left renal calculus. Circumferential mucosal thickening of the urinary bladder, which may be related to underdistention versus cystitis. Clinical correlation with urinary analysis is recommended as clinically indicated. Mild mucosal thickening of the small bowel, which may be related to underdistention versus mild enteritis of infectious or inflammatory etiology. Zguh-kf-[id number] amount of retained fecal debris in the colon, which raises the concern for constipation. Scattered colonic diverticula without definite evidence of diverticulitis. Normal appendix. THIS IS AN ELECTRONICALLY VERIFIED FINAL REPORT 09/19/2024 1:18 PM - Electronically signed by Romi SHEPPARD T: Report ID: [id number] Reading Location: [place] [address] Procedure Note Romi Lewis, DO - 09/19/2024 EXAM DESCRIPTION: CT ABDOMEN PELVIS WO CONTRAST REASON FOR STUDY: Nausea Nausea. Patient is end-stage renal disease who comes in for vomiting not feeling well for the last few days, she felt some body aches, fatigue, weakness. Hx: Diabetes, CKD, HTN TECHNIQUE: CT scan of the abdomen and pelvis performed without intravenousand without oral contrast using helical scanning technique. Reconstructed coronal and sagittal MPR images reviewed. All images stored on PACS.Automated exposure control was used as a dose optimization technique for this examination. COMPARISON: 09/18/2024 FINDINGS: The sensitivity for detection of visceral lesions is diminished without the use of intravenous contrast. LOWER CHEST: There is cardiomegaly. There is no definite evidence of pericardial effusion. Right-sided dialysis catheter is noted with itsdistal tip in the right atrium. There are mild atherosclerotic changes of theaorta. There is minimal to mild bibasilar subsegmental atelectasis and scarring. LIVER: The liver is grossly stable in size and contour. GALLBLADDER: Grossly unremarkable. BILE DUCTS: No intrahepatic or extrahepatic ductal dilatation. SPLEEN: The spleen is grossly stable in size and unremarkable. PANCREAS: The pancreas has a grossly stable unenhanced CT appearance. ADRENALS: The bilateral adrenal glands are grossly stable andunremarkable. KIDNEYS/URINARY TRACT: There is no definite unenhanced CT evidence of a focal renal lesion. There is a 0.3 cm nonobstructing left renal calculus. There is no definite evidence of hydronephrosis or hydroureter. There is redemonstration of the 0.5 cm calculus in the mid left ureter, similar in position in comparison to the prior study. There is circumferentialmucosal thickening of the urinary bladder. There is air noted within the urinary bladder, which is likely related to recent instrumentation. GI: There is no definite evidence of a bowel obstruction. There is mild mucosal thickening of the small bowel, which is most significantproximally. The appendix is visualized without definite evidence of pericecal or periappendiceal inflammatory changes to suggest appendicitis. There are scattered colonic diverticula without definite evidence of diverticulitis. There is a qgdi-qx-ttmalkcs amount of retained fecal debris in the colon. There is no definite evidence of free air or fluid in the abdomen andpelvis. There is no definite unenhanced CT evidence of lymphadenopathy in theabdomen and pelvis. REPRODUCTIVE: There is an intrauterine device noted in the uterus.There is redemonstration of the lobulated and bulky appearing uterus, which islikely related to underlying fibroid changes. MUSCULOSKELETAL: There are mild degenerative changes of the spine. OTHER: No other abnormality. IMPRESSION: No definite evidence of bowel obstruction. Redemonstration of the 0.5 cm calculus in the mid left ureter, similar in position in comparison to the prior study. No definite evidence of hydronephrosis or hydroureter. Punctate nonobstructing left renal calculus. Circumferential mucosal thickening of the urinary bladder, which may be related to underdistention versus cystitis. Clinical correlation withurinary analysis is recommended as clinically indicated. Mild mucosal thickening of the small bowel, which may be related to underdistention versus mild enteritis of infectious or inflammatoryetiology. Svtm-uc-vzrkqkwj amount of retained fecal debris in the colon, whichraises the concern for constipation. Scattered colonic diverticula without definite evidence ofdiverticulitis. Normal appendix. THIS IS AN ELECTRONICALLY VERIFIED FINAL REPORT 09/19/2024 1:18 PM - Electronically signed by Romi SHEPPARD T: Report ID: [id number] Reading Location: [id number] Galo Smith MD IMG CT PROCEDURES Final Result * POCT glucose (09/19/2024 11:26 AM TAMALE MAKER) Glucose, POC 100 70 - 199 mg/dL Blood 09/19/2024 11:2 6 AM TAMALE MAKER 09/19/2024 11:26 AM TAMALE MAKER Galo Smith MD LAB POCT ORDERABLES - D EVICE Final Result [facility] [address] [facility] Department [place] [address] * (ABNORMAL) hCG, blood, quantitative (09/19/2024 10:48 AM TAMALE MAKER) hCG, quant 6.0(H) 0.0 - 5.0 IUnits/L Comment: Interpretive Data Male: < 5 IU/L Non- premenopausal Female: <5 IU/L The [employer] hCG Beta Quant assay procedure was used. Results from different manufacturers or methods may not be comparable. Serial testing should be performed using the same method. Interpretive Data was last revised on 2023 Blood 09/19/2024 10:4 8 AM TAMALE MAKER 09/19/2024 10:51 AM TAMALE MAKER Galo Smith MD LAB BLOOD ORDERABLES Fi nal Result [facility] [place] [employer] [place] [address] * POCT glucose (09/19/2024 8:28 AM TAMALE MAKER) Glucose, POC 87 70 - 199 mg/dL Blood 09/19/2024 8:28 AM TAMALE MAKER 09/19/2024 8:28 AM TAMALE MAKER Galo Smith MD LAB POCT ORDERABLES - D EVICE Final Result Performing Organization Address City/[facility] Co de Phone Number [id number] [employer] [place] [address] * (ABNORMAL) eGFR (09/19/2024 6:44 AM TAMALE MAKER) eGFR 10(L) >=60 mL/min/1. 73 m2 Comment: Interpretive Data Reference Interval Normal >/= 90 mL/min/1.73m2 Mildly decreased* 60 - 89 mL/min/1.73m2 Mildly to moderately decreased 45 - 59 mL/min/1.73m2 Moderately to severely decreased 30 - 44 mL/min/1.73m2 Severely decreased 15 - 29 mL/min/1.73m2 Kidney Failure < 15 mL/min/1.73m2 *Relative to young adult level Estimated glomerular filtration rate is determined by the 2020 CKD-EPI equation recommended by the National Kidney Foundation (A Unifying Approach to GFR Estimation: Recommendations of the NKF-ASK Task Force on Reassessing the Inclusion of Race in Diagnosing Kidney Disease, JASN 2020). The CKD-EPI equation should not be used for patients with unstable renal function and has not been validated in children and those over 70. Current interpretive data was last reviewed 2021. Blood 09/19/2024 6:44 AM TAMALE MAKER 09/19/2024 7:07 AM TAMALE MAKER us Rory Harper MD LAB BLOOD ORDERABLES Fin al Result [facility] [address] [facility] Department [place] [address] * Differential, auto (09/19/2024 6:44 AM TAMALE MAKER) Pathologist [facility] Neutrophil abs 3.7 1.5 - 6.5 K/cumm Imm gran abs 0.0 0.0 - 0.1 K/cumm [facility] Lymphocyte abs 1.1 0.8 - 3.3 K/cumm [facility] Monocyte abs 0.4 0.2 - 0.8 K/cumm [facility] Eosinophil abs 0.1 0.0 - 0.5 K/cumm [facility] Basophil abs 0.0 0.0 - 0.1 K/cumm [facility] Neutrophil pct 69.4 % [facility] Comment: Interpretive Data Percent cell count reference ranges are not reported, since discordance with absolute values may lead to misinterpretation of CBC data. Current Interpretive Data was last revised on 2017. Imm gran pct 0.2 % [facility] Comment: Interpretive Data Percent cell count reference ranges are not reported, since discordance with absolute values may lead to misinterpretation of CBC data. Current Interpretive Data was last revised on 2017. Lymphocyte pct 20.5 % [facility] Comment: Interpretive Data Percent cell count reference ranges are not reported, since discordance with absolute values may lead to misinterpretation of CBC data. Current Interpretive Data was last revised on 2017. Monocyte pct 7.4 % [facility] Comment: Interpretive Data Percent cell count reference ranges are not reported, since discordance with absolute values may lead to misinterpretation of CBC data. Current Interpretive Data was last revised on 2017. Eosinophil pct 1.7 % [facility] Comment: Interpretive Data Percent cell count reference ranges are not reported, since discordance with absolute values may lead to misinterpretation of CBC data. Current Interpretive Data was last revised on 2017. Basophil pct 0.8 % [facility] Comment: Interpretive Data Percent cell count reference ranges are not reported, since discordance with absolute values may lead to misinterpretation of CBC data. Current Interpretive Data was last revised on 2017. Blood 09/19/2024 6:44 AM TAMALE MAKER 09/19/2024 7:07 AM TAMALE MAKER Rory Harper MD LAB BLOOD ORDERABLES Fin al Result Performing Organization Address City/[facility] Co de Phone Number [place] [id number] [facility] Department [place] [address] * (ABNORMAL) CBC with auto differential (09/19/2024 6:44 AM TAMALE MAKER) Pathologist [facility] WBC 5.3 3.8 - 9.9 K/cumm Hgb 13.1 11.9 - 15.5 g/dL [facility] Hct 40.4 35.6 - 45.5 % [facility] Plt 171 150 - 400 K/cumm [facility] MPV 10.9 9.1 - 12.3 fL [facility] RBC 4.42 3.90 - 5.20 M/cumm [facility] MCV 91.4 81.3 - 96.4 fL [facility] MCH 29.6 27.1 - 33.3 pg [facility] MCHC 32.4 32.3 - 35.7 g/dL [facility] RDW CV 14.7 11.1 - 14.9 % [facility] RDW SD 49.4(H) 35.7 - 48.1 fL [facility] NRBC abs 0.00 0.00 - 0.01 K/cumm [facility] Blood 09/19/2024 6:44 AM TAMALE MAKER 09/19/2024 7:07 AM TAMALE MAKER Rory Harper MD LAB BLOOD ORDERABLES Fin al Result Performing Organization Address City/[facility] de Phone Number [facility] [address] [address] * (ABNORMAL) Phosphorus (09/19/2024 6:44 AM TAMALE MAKER) [facility] Phosphorus, pl 6.0(H) 2.3 - 4.5 mg/dL Blood 09/19/2024 6:44 AM TAMALE MAKER 09/19/2024 7:07 AM TAMALE MAKER Rory Harper MD LAB BLOOD ORDERABLES Fin al Result Performing Organization Address [facility] Co de Phone Number [address] [employer] [place] [address] * Magnesium (09/19/2024 6:44 AM TAMALE MAKER) [facility] Magnesium 2.3 1.4 - 2.5 mg/dL Blood 09/19/2024 6:44 AM TAMALE MAKER 09/19/2024 7:07 AM TAMALE MAKER Rory Harper MD LAB BLOOD ORDERABLES Fin al Result Performing Organization Address [facility] de Phone Number [address] [address] * (ABNORMAL) Comprehensive metabolic panel (09/19/2024 6:44 AM TAMALE MAKER) [facility] Sodium 138 135 - 145 mmol/L Potassium, pl 5.0(H) 3.3 - 4.9 mmol/L [facility] Chloride 96(L) 97 - 110 mmol/L [facility] CO2 29 22 - 32 mmol/L [facility] Anion gap 13 2 - 15 mmol/L [facility] BUN 42(H) 6 - 25 mg/dL [facility] Creatinine 5.01(H) 0.60 - 1.10 mg/dL [facility] Glucose 95 70 - 199 mg/dL [facility] Comment: Interpretive Data Fasting glucose >/= 126 mg/dl is diagnostic for diabetes. Fasting is defined as no caloric intake for at least 8 hours. Fasting glucose between 100 mg/dl to 125 mg/dl is diagnostic of prediabetes. In a patient with classic symptoms of hyperglycemia or hyperglycemic crisis, a random glucose >/= 200 mg/dl is diagnostic for diabetes. In the absence of unequivocal hyperglycemia, results should be confirmed by repeat testing. The classification and Diagnosis of Diabetes Diabetes Care 2021; 46: S19-S40. Current interpretive data was last revised 2022. Calcium 8.6 8.5 - 10.3 mg/dL [facility] Bilirubin, total 0.4 0.1 - 1.2 mg/dL [facility] Protein, pl 7.2 6.5 - 8.5 g/dL [facility] Albumin 3.8 3.5 - 5.0 g/dL [facility] Alk phos 138(H) 40 - 130 Units/L [facility] ALT 15 7 - 45 Units/L [facility] AST 24 10 - 45 Units/L [facility] Blood 09/19/2024 6:44 AM TAMALE MAKER 09/19/2024 7:07 AM TAMALE MAKER Rory Harper MD LAB BLOOD ORDERABLES Fin al Result [facility] [address] [employer] [place], [place] [id number] * POCT glucose (09/18/2024 7:37 PM TAMALE MAKER) [facility] Glucose, POC 153 70 - 199 mg/dL Glucose comment 1 Use This Result [facility] Blood 09/18/2024 7:37 PM TAMALE MAKER 09/18/2024 7:37 PM TAMALE MAKER Rory Harper MD LAB POCT ORDERABLES - DE VICE Final Result Performing Organization Address [facility]/ZIP Co de Phone Number [address] [employer] [place] [address] * US Kidney Complete (09/18/2024 7:21 PM TAMALE MAKER) Anatomical Region Laterality Modality Kidney N/A Ultrasound 09/18/2024 9:32 PM TAMALE MAKER Narrative 09/18/2024 9:33 PM TAMALE MAKER EXAM DESCRIPTION: US KIDNEY COMPLETE REASON FOR STUDY: ckd TECHNIQUE: Ultrasound of the kidneys and urinary bladder was performed with grayscale imaging. COMPARISON: 08/25/2024 FINDINGS: RIGHT KIDNEY: Right kidney measures 9.8 cm in length. No hydronephrosis, mass, or calculus. Normal cortical thickness and echogenicity. LEFT KIDNEY: Left kidney measures 11.1 cm in length. No hydronephrosis, mass, or calculus. Normal cortical thickness and echogenicity. URINARY BLADDER: Unremarkable. Jets not seen. IMPRESSION: No obstruction or other acute abnormality identified. Normal sonographic appearance of the kidneys and bladder. THIS IS AN ELECTRONICALLY VERIFIED FINAL REPORT 09/18/2024 9:33 PM - Electronically signed by Chase Cervantes M.D. [place] T: Report ID: [id number] Reading Location: [id number] Procedure Note Chase Cervantes MD - 09/18/2024 EXAM DESCRIPTION: US KIDNEY COMPLETE REASON FOR STUDY: ckd TECHNIQUE: Ultrasound of the kidneys and urinary bladder was performedwith grayscale imaging. COMPARISON: 08/25/2024 FINDINGS: RIGHT KIDNEY: Right kidney measures 9.8 cm in length. Nohydronephrosis, mass, or calculus. Normal cortical thickness and echogenicity. LEFT KIDNEY: Left kidney measures 11.1 cm in length. No hydronephrosis, mass, or calculus. Normal cortical thickness and echogenicity. URINARY BLADDER: Unremarkable. Jets not seen. IMPRESSION: No obstruction or other acute abnormality identified. Normal sonographic appearance of the kidneys and bladder. THIS IS AN ELECTRONICALLY VERIFIED FINAL REPORT 09/18/2024 9:33 PM - Electronically signed by Chase Cervantes M.D. AR T: Report ID: [id number] Reading Location: [id number] us Eduarda Batista [employer] IMG US PROCEDURES Final Resu lt * (ABNORMAL) BUN (09/18/2024 6:45 PM TAMALE MAKER) BUN 30(H) 6 - 25 mg/dL Blood 09/18/2024 6:45 PM TAMALE MAKER 09/18/2024 6:59 PM TAMALE MAKER Narrative [facility] - 09/18/2024 7:25 PM TAMALE MAKER Pre-Dialysis Amrik Mata MD LAB BLOOD ORDERABLES Final Resu lt Performing Organization Address City/[facility]/ZIP Co de Phone Number [address] [employer] [place] [address] * Potassium (09/18/2024 6:45 PM TAMALE MAKER) Potassium, pl 3.9 3.3 - 4.9 mmol/L Blood 09/18/2024 6:45 PM TAMALE MAKER 09/18/2024 6:59 PM TAMALE MAKER Eduarda Batista NP LAB BLOOD ORDERABLES Final R esult Performing Organization Address [facility]/ZIP Co de Phone Number [address] [employer] [place] [address] * POCT glucose (09/18/2024 5:58 PM TAMALE MAKER) Glucose, POC 86 70 - 199 mg/dL Glucose comment 1 Use This Result [facility] Glucose comment 2 RN/MD Notified [facility] Blood 09/18/2024 5:58 PM TAMALE MAKER 09/18/2024 5:58 PM TAMALE MAKER Rory Harper MD LAB POCT ORDERABLES - DE VICE Final Result Performing Organization Address [facility] Co de Phone Number [address] [employer] [place] [address] * (ABNORMAL) Potassium (09/18/2024 2:00 PM TAMALE MAKER) Potassium, pl 5.0(H) 3.3 - 4.9 mmol/L Blood 09/18/2024 2:00 PM TAMALE MAKER 09/18/2024 2:56 PM TAMALE MAKER Amrik Mata MD LAB BLOOD ORDERABLES Final Resu lt Performing Organization Address [facility] de Phone Number [address] [address] * POCT glucose (09/18/2024 1:28 PM TAMALE MAKER) Glucose, POC 129 70 - 199 mg/dL Glucose comment 1 Use This Result [facility] Blood 09/18/2024 1:28 PM TAMALE MAKER 09/18/2024 1:28 PM TAMALE MAKER Pablo Gallego MD LAB POCT ORDERABLES - DEVICE Final Result Performing Organization Address [facility] de Phone Number [address] [address] * POCT glucose (09/18/2024 11:58 AM TAMALE MAKER) Glucose, POC 144 70 - 199 mg/dL Glucose comment 1 Use This Result [facility] Glucose comment 2 RN/MD Notified [facility] Blood 09/18/2024 11:5 8 AM TAMALE MAKER 09/18/2024 11:58 AM TAMALE MAKER Pablo Gallego MD LAB POCT ORDERABLES - DEVICE Final Result Performing Organization Address [facility] de Phone Number [address] [address] * (ABNORMAL) Urinalysis reflex to microscopic and culture Urine (09/18/2024 10:15 AM TAMALE MAKER) Color, ur Other(A) Yellow Clarity, ur Turbid(A) Clear [facility] Specific gravity, ur 1.017 1.003 - 1.030 [facility] pH, urine 7.0 [facility] Comment: Interpretive Data U rine pH is affected by diet, medications, systemic acid-base disturbances, and renal tubular function. pH may affect urinary stone formation. For example, urine pH below 6.0 may help reduce the tendency for calcium phosphate stones and pH greater than 6.0 may reduce the tendency for uric acid stone formation. Source: [facility] Current Interpretive Data was last revised on 2017 Protein, ur ql 3+(A) Negative [facility] Glucose, ur ql 1+(A) Negative [facility] Ketones, ur Negative Negative [facility] Bilirubin, ur Negative Negative [facility] Blood, ur 2+(A) Negative [facility] Urobilinogen, ur <2.0 <2.0 mg/dL [facility] Nitrite, ur Negative Negative [facility] Leukocyte esterase, ur 4+(A) Negative [facility] UA reflex comment Reflex to microscopic UA will be performed. [facility] Urine 09/18/2024 10:1 5 AM TAMALE MAKER 09/18/2024 10:24 AM TAMALE MAKER Pablo Gallego MD LAB MICROBIOLOGY - GENERAL ORDERABLES Final Result Performing Organization Address [facility] Co de Phone Number [address] [place] [employer] [address] * (ABNORMAL) Urinalysis, microscopic only (09/18/2024 10:15 AM TAMALE MAKER) WBC, ur >50(A) 0 - 5 /HPF RBC, ur 21-50(A) 0 - 2 /HPF [facility] Epithelial cells, squamous, ur 1-5 0 - 5 /HPF [facility] Bacteria, ur 4+(A) [facility] Yeast, ur 4+(A) [facility] Culture Reflex Comment Reflex to urine culture will be performed. [facility] Urine 09/18/2024 10:1 5 AM TAMALE MAKER 09/18/2024 10:24 AM TAMALE MAKER Pablo Gallego MD LAB URINE ORDERABLE S Final Result Performing Organization Address [facility] de Phone Number [address] [place] [employer] [address] * (ABNORMAL) Urine culture Urine (09/18/2024 10:15 AM TAMALE MAKER) Report Final Report: Greater than or equal to 100,000 colonies/mL of Klebsiella pneumoniae Greater than or equal to 100,000 colonies/mL of Klebsiella pneumoniae #2 (.) Comment:Testing performed by : [facility], [address] [facility], [place]., [address] Organism KLEBSIELLA PNEUMONIAE YAW Organism KLEBSIELLA PNEUMONIAE YAW Urine 09/18/2024 10:1 5 AM TAMALE MAKER 09/18/2024 1:55 PM TAMALE MAKER Narrative [facility] - 09/21/2024 10:23 AM TAMALE MAKER Urine culture reflexed based upon urinalysis results. Testing performed by [facility] ([phone]) Organism Antibiotic Method Susceptibility Klebsiella pneumoniae Ampicillin INTERPRETATION Resistant Klebsiella pneumoniae Cefazolin INTERPRETATION Susceptible Klebsiella pneumoniae Nitrofurantoin INTERPRETATION Resistant Klebsiella pneumoniae Gentamicin INTERPRETATION Susceptible Klebsiella pneumoniae Trimethoprim with Sulfamethoxazole INTERPRETATION Susceptible Klebsiella pneumoniae Meropenem INTERPRETATION Susceptible Klebsiella pneumoniae Cefepime INTERPRETATION Susceptible Klebsiella pneumoniae Ciprofloxacin INTERPRETATION Resistant Klebsiella pneumoniae Ceftazidime INTERPRETATION Susceptible Klebsiella pneumoniae Ceftriaxone INTERPRETATION Susceptible Klebsiella pneumoniae Piperacillin/Tazobactam INTERPRE TATION Resistant Klebsiella pneumoniae Cephalexin INTERPRETATION Susceptible Klebsiella pneumoniae Cefuroxime-axetil INTERPRETATION Susceptible Klebsiella pneumoniae Cefdinir INTERPRETATION Susceptible Klebsiella pneumoniae Ampicillin INTERPRETATION Resistant Klebsiella pneumoniae Cefazolin INTERPRETATION Susceptible Klebsiella pneumoniae Nitrofurantoin INTERPRETATION Susceptible Klebsiella pneumoniae Gentamicin INTERPRETATION Susceptible Klebsiella pneumoniae Trimethoprim with Sulfamethoxazole INTERPRETATION Susceptible Klebsiella pneumoniae Meropenem INTERPRETATION Susceptible Klebsiella pneumoniae Cefepime INTERPRETATION Susceptible Klebsiella pneumoniae Ciprofloxacin INTERPRETATION Resistant Klebsiella pneumoniae Ceftazidime INTERPRETATION Susceptible Klebsiella pneumoniae Ceftriaxone INTERPRETATION Susceptible Klebsiella pneumoniae Piperacillin/Tazobactam INTERPRE TATION Intermediate Klebsiella pneumoniae Cephalexin INTERPRETATION Susceptible Klebsiella pneumoniae Cefuroxime-axetil INTERPRETATION Susceptible Klebsiella pneumoniae Cefdinir INTERPRETATION Susceptible us Pablo Gallego MD LAB MICROBIOLOGY - GENERAL ORDERABLES Final Result [facility] [address] [facility] Department [place] [address] * (ABNORMAL) POC Blood Gas and Chemistries, Venous - (09/18/2024 10:12 AM TAMALE MAKER) Oxy Hgb, ruby POC 80.5(L) 90.0 - 95.0 % Hemoglobin, ruby POC 13.4 11.9 - 15.5 g/dL [facility] Sodium, ruby POC 136 135 - 145 mmol/L [facility] Potassium, ruby POC 5.6(H) 3.3 - 4.9 mmol/L [facility] Comment: Interpretive Data This method is not able to assess for hemolysis, which may falsely increase potassium concentrations. If further testing is needed to evaluate this result, consider in-laboratory plasma potassium. Current Interpretive Data was last revised on 2022. Glucose, ruby POC 167 70 - 199 mg/dL [facility] Ionized Calcium, ruby POC 3.82(L) 4.50 - 5.10 mg/dL [facility] Lactate, ruby POC 0.7 0.7 - 2.0 mmol/L [facility] Blood 09/18/2024 10:1 2 AM TAMALE MAKER 09/18/2024 10:12 AM TAMALE MAKER Pablo Gallego MD LAB POCT ORDERABLES - DEVICE Final Result [facility] [address] [facility] Department of Laboratories [place], [place] [id number] * ECG 12 lead (09/18/2024 9:44 AM TAMALE MAKER) [facility] Ventricular Rate EKG/Min 77 BPM [facility] Atrial Rate [address] [facility] [place]-Interval (MSEC) [address] [facility] QRS-Interval (MSEC) 88 ms [facility] QT-Interval (MSEC) [address] [facility] QTc 432 ms [facility] P [place] [address] [facility] R [place] -[address] [facility] T [place] 47 degrees [facility] Diagnosis Normal sinus rhythm Possible Left atrial enlargement Borderline ECG When compared with ECG of 11-SEP-2024 08:19, No significant change was found Confirmed by GUANACO ROBERTS M.D. ([id number]) on 09/18/2024 11:23:35 AM [facility] 09/18/2024 9:44 AM TAMALE MAKER 09/18/2024 11:23 AM TAMALE MAKER us Pablo Gallego MD ECG ORDERABLES Fin al Result Performing Organization Address City/[facility]/ZIP Co de Phone Number [facility] * (ABNORMAL) eGFR (09/18/2024 9:38 AM TAMALE MAKER) eGFR 6(L) >=60 mL/min/1. 73 m2 Comment: Interpretive Data Reference Interval Normal >/= 90 mL/min/1.73m2 Mildly decreased* 60 - 89 mL/min/1.73m2 Mildly to moderately decreased 45 - 59 mL/min/1.73m2 Moderately to severely decreased 30 - 44 mL/min/1.73m2 Severely decreased 15 - 29 mL/min/1.73m2 Kidney Failure < 15 mL/min/1.73m2 *Relative to young adult level Estimated glomerular filtration rate is determined by the 2020 CKD-EPI equation recommended by the National Kidney Foundation (A Unifying Approach to GFR Estimation: Recommendations of the NKF-ASK Task Force on Reassessing the Inclusion of Race in Diagnosing Kidney Disease, JASN 2020). The CKD-EPI equation should not be used for patients with unstable renal function and has not been validated in children and those over 70. Current interpretive data was last reviewed 2021. Blood 09/18/2024 9:38 AM TAMALE MAKER 09/18/2024 9:41 AM TAMALE MAKER Raquel GRAVES LAB BLOOD ORDERABLES Final Result Performing Organization Address City/[facility]/ZIP Co de Phone Number [facility] [address] [facility] Department of Laboratories [place], [place] [id number] * (ABNORMAL) Differential, auto (09/18/2024 9:38 AM TAMALE MAKER) Neutrophil abs 6.8(H) 1.5 - 6.5 K/cumm Imm gran abs 0.0 0.0 - 0.1 K/cumm [facility] Lymphocyte abs 1.0 0.8 - 3.3 K/cumm [facility] Monocyte abs 0.4 0.2 - 0.8 K/cumm [facility] Eosinophil abs 0.1 0.0 - 0.5 K/cumm [facility] Basophil abs 0.1 0.0 - 0.1 K/cumm [facility] Neutrophil pct 81.6 % [facility] Comment: Interpretive Data Percent cell count reference ranges are not reported, since discordance with absolute values may lead to misinterpretation of CBC data. Current Interpretive Data was last revised on 2017. Imm gran pct 0.2 % [facility] Comment: Interpretive Data Percent cell count reference ranges are not reported, since discordance with absolute values may lead to misinterpretation of CBC data. Current Interpretive Data was last revised on 2017. Lymphocyte pct 11.6 % [facility] Comment: Interpretive Data Percent cell count reference ranges are not reported, since discordance with absolute values may lead to misinterpretation of CBC data. Current Interpretive Data was last revised on 2017. Monocyte pct 4.3 % [facility] Comment: Interpretive Data Percent cell count reference ranges are not reported, since discordance with absolute values may lead to misinterpretation of CBC data. Current Interpretive Data was last revised on 2017. Eosinophil pct 1.3 % [facility] Comment: Interpretive Data Percent cell count reference ranges are not reported, since discordance with absolute values may lead to misinterpretation of CBC data. Current Interpretive Data was last revised on 2017. Basophil pct 1.0 % [facility] Comment: Interpretive Data Percent cell count reference ranges are not reported, since discordance with absolute values may lead to misinterpretation of CBC data. Current Interpretive Data was last revised on 2017. Blood 09/18/2024 9:38 AM TAMALE MAKER 09/18/2024 9:42 AM TAMALE MAKER Raquel GRAVES LAB BLOOD ORDERABLES Final Result [facility] [address] [facility] Department [place] [address] * (ABNORMAL) CBC with auto differential (09/18/2024 9:38 AM TAMALE MAKER) WBC 8.4 3.8 - 9.9 K/cumm Hgb 13.9 11.9 - 15.5 g/dL [facility] Hct 42.9 35.6 - 45.5 % [facility] Plt 178 150 - 400 K/cumm [facility] MPV 10.9 9.1 - 12.3 fL [facility] RBC 4.66 3.90 - 5.20 M/cumm [facility] MCV 92.1 81.3 - 96.4 fL [facility] MCH 29.8 27.1 - 33.3 pg [facility] MCHC 32.4 32.3 - 35.7 g/dL [facility] RDW CV 14.7 11.1 - 14.9 % [facility] RDW SD 50.0(H) 35.7 - 48.1 fL [facility] NRBC abs 0.00 0.00 - 0.01 K/cumm [facility] Blood 09/18/2024 9:38 AM TAMALE MAKER 09/18/2024 9:42 AM TAMALE MAKER Pablo Gallego MD LAB BLOOD ORDERABLE S Final Result Performing Organization Address City/[facility]/ZIP Co de Phone Number [address] [employer] [place] [address] * (ABNORMAL) Phosphorus (09/18/2024 9:38 AM TAMALE MAKER) [facility] Phosphorus, pl 6.5(H) 2.3 - 4.5 mg/dL Blood 09/18/2024 9:38 AM TAMALE MAKER 09/18/2024 9:41 AM TAMALE MAKER Pablo Gallego MD LAB BLOOD ORDERABLE S Final Result [address] [employer] [place] [address] * Magnesium (09/18/2024 9:38 AM TAMALE MAKER) [facility] Magnesium 2.4 1.4 - 2.5 mg/dL Blood 09/18/2024 9:38 AM TAMALE MAKER 09/18/2024 9:41 AM TAMALE MAKER us Pablo Gallego MD LAB BLOOD ORDERABLE S Final Result [facility] [address] [facility] Department [place] [address] * (ABNORMAL) Comprehensive metabolic panel (09/18/2024 9:38 AM TAMALE MAKER) Sodium 139 135 - 145 mmol/L Potassium, pl 6.6(C) 3.3 - 4.9 mmol/L [facility] Comment:Hemolyzed; Potassium value may be falsely elevated by as much as 1.0 mmol/L. Suggest redraw and reanalysis. Critical Result called to and read back by GLORIA Bryant [email or web address], DATE: 2024-09-18 10:13:30 BY: Casey [id number] Chloride 99 97 - 110 mmol/L [facility] CO2 26 22 - 32 mmol/L [facility] Anion gap 14 2 - 15 mmol/L [facility] BUN 77(H) 6 - 25 mg/dL [facility] Creatinine 7.20(H) 0.60 - 1.10 mg/dL [facility] Glucose 177 70 - 199 mg/dL [facility] Comment: Interpretive Data Fasting glucose >/= 126 mg/dl is diagnostic for diabetes. Fasting is defined as no caloric intake for at least 8 hours. Fasting glucose between 100 mg/dl to 125 mg/dl is diagnostic of prediabetes. In a patient with classic symptoms of hyperglycemia or hyperglycemic crisis, a random glucose >/= 200 mg/dl is diagnostic for diabetes. In the absence of unequivocal hyperglycemia, results should be confirmed by repeat testing. The classification and Diagnosis of Diabetes Diabetes Care 202; 46: S19-S40. Current interpretive data was last revised 2022. Calcium 8.8 8.5 - 10.3 mg/dL [facility] Bilirubin, total 0.4 0.1 - 1.2 mg/dL [facility] Protein, pl 8.4 6.5 - 8.5 g/dL [facility] Albumin 4.5 3.5 - 5.0 g/dL [facility] Alk phos 156(H) 40 - 130 Units/L [facility] ALT 19 7 - 45 Units/L [facility] AST 27 10 - 45 Units/L [facility] Blood 09/18/2024 9:38 AM TAMALE MAKER 09/18/2024 9:41 AM TAMALE MAKER us Pablo Gallego MD LAB BLOOD ORDERABLE S Final Result [facility] [address] [facility] Department [place] [address] * US Vein Mapping Duplex Upper Extremity Bilateral (09/16/2024 1:28 PM TAMALE MAKER) Anatomical Region Laterality Modality Vascular Bilateral Ultrasound 09/16/2024 11:0 3 AM TAMALE MAKER Narrative 09/16/2024 1:31 PM TAMALE MAKER Upper Extremity Vein Mapping Report Patient Name: JENNIFER CARTER : 1975 (49y 7m) Gender: F Study Date: 09/16/2024 11:03:15 AM Training Designer: Vikki Mcdonald Provider: DON SANTOS Quality: Adequate Ref Provider: DON SANTOS PROCEDURES: Vascular Report: A non-invasive vascular imaging study of the bilateral upper extremity was performed to map the superficial veins for use as dialysis access using B- mode ultrasound, color flow, and spectral Doppler. INDICATIONS: Z01.818 Encounter for other preprocedural examination and N18.6 End stage renal disease. COMPARISONS: The previous exam was completed on 03/01/24. VEINS: Right Value Left Value Rt Cephalic Vein Upper Arm Prx Dim 4.30 mm Lt Cephalic Vein Upper Arm Prx Dim 4.00 mm Rt Cephalic Vein Upper Arm Mid Dim 3.80 mm Lt Cephalic Vein Upper Arm Mid Dim 4.20 mm Rt Cephalic Vein Upper Arm Dst Dim 3.10 mm Lt Cephalic Vein Upper Arm Dst Dim 4.50 mm Rt Cephalic Vein Forearm Prx Dim 2.70 mm Lt Cephalic Vein Forearm Prx Dim 4.50 mm Rt Cephalic Vein Forearm Mid Dim 3.60 mm Lt Cephalic Vein Forearm Mid Dim 4.10 mm Rt Cephalic Vein Forearm Dst Dim 3.50 mm Lt Cephalic Vein Forearm Dst Dim 4.80 mm Rt Basilic Vein Upper Arm Mid Dim 5 takeoff mm Lt Basilic Vein Upper Arm Mid Dim 6.3 takeoff mm Rt Basilic Vein Upper Arm Dst Dim 5.40 mm Lt Basilic Vein Antecubital Dim 3.90 mm Rt Basilic Vein Forearm Prx Depth 5.80 mm Lt Basilic Vein Forearm Prx Dim 2.80 mm Rt Basilic Vein Forearm Mid Dim 3.60 mm Lt Basilic Vein Forearm Mid Dim 2.70 mm Rt Basilic Vein Forearm Dst Dim 2.60 mm Lt Basilic Vein Forearm Dst Dim 2.40 mm Rt Axilla Vein Prx Dim 7.80 mm Lt Axilla Vein Prx Dim 6.10 mm ARTERIES: Right Value Left Value Rt Brach AP Dim 4.80 mm Lt Brach Trans Dim 0.51 mm Rt Radial Trans Dim 2.60 mm Lt Radial Trans Dim 2.90 mm Rt Radial Dst PSV 95.00 cm/sec Lt Radial Dst PSV 94.80 cm/sec FINDINGS: Right: Negative for deep and superficial vein thrombosis in the right upper extremity. Left: Negative for deep and superficial vein thrombosis in the left upper extremity. CONCLUSIONS: 1. Bilateral cephalic and right basilic veins appear sizable and suitable for AV fistula creation. ATTESTATION: I have reviewed and interpreted the pertinent images and measurements of this study. I attest to the conclusions in the final report that is provided above. Electronically Signed By: Don Santos MD 09/16/2024 12:38:31 PM TAMALE MAKER Procedure Note Don Santos MD - 09/16/2024 Upper Extremity Vein Mapping Report Patient Name: JENNIFER CARTER : 1975 (49y 7m) Gender: F Study Date: 09/16/2024 11:03:15 AM Training Designer: Vikki Mcdonald Provider: DON SANTOS Quality: Adequate Ref Provider: DON SANTOS PROCEDURES: Vascular Report: A non-invasive vascular imaging study of the bilateralupper extremity was performed to map the superficial veins for use as dialysis accessusing B- mode ultrasound, color flow, and spectral Doppler. INDICATIONS: Z01.818 Encounter for other preprocedural examination and N18.6 End stagerenal disease. COMPARISONS: The previous exam was completed on 03/01/24. VEINS: Right Value Left Value Rt Cephalic Vein Upper Arm Prx Dim 4.30 mm Lt Cephalic Vein Upper Arm PrxDim 4.00 mm Rt Cephalic Vein Upper Arm Mid Dim 3.80 mm Lt Cephalic Vein Upper Arm MidDim 4.20 mm Rt Cephalic Vein Upper Arm Dst Dim 3.10 mm Lt Cephalic Vein Upper Arm DstDim 4.50 mm Rt Cephalic Vein Forearm Prx Dim 2.70 mm Lt Cephalic Vein Forearm Prx Dim4.50 mm Rt Cephalic Vein Forearm Mid Dim 3.60 mm Lt Cephalic Vein Forearm Mid Dim4.10 mm Rt Cephalic Vein Forearm Dst Dim 3.50 mm Lt Cephalic Vein Forearm Dst Dim4.80 mm Rt Basilic Vein Upper Arm Mid Dim 5 takeoff mm Lt Basilic Vein Upper ArmMid Dim 6.3 takeoff mm Rt Basilic Vein Upper Arm Dst Dim 5.40 mm Lt Basilic Vein Antecubital Dim3.90 mm Rt Basilic Vein Forearm Prx Depth 5.80 mm Lt Basilic Vein Forearm Prx Dim2.80 mm Rt Basilic Vein Forearm Mid Dim 3.60 mm Lt Basilic Vein Forearm Mid Dim2.70 mm Rt Basilic Vein Forearm Dst Dim 2.60 mm Lt Basilic Vein Forearm Dst Dim2.40 mm Rt Axilla Vein Prx Dim 7.80 mm Lt Axilla Vein Prx Dim 6.10 mm ARTERIES: Right Value Left Value Rt Brach AP Dim 4.80 mm Lt Brach Trans Dim 0.51 mm Rt Radial Trans Dim 2.60 mm Lt Radial Trans Dim 2.90 mm Rt Radial Dst PSV 95.00 cm/sec Lt Radial Dst PSV 94.80 cm/sec FINDINGS: Right: Negative for deep and superficial vein thrombosis in the rightupper extremity. Left: Negative for deep and superficial vein thrombosis in the left upperextremity. CONCLUSIONS: 1. Bilateral cephalic and right basilic veins appear sizable and suitablefor AV fistula creation. ATTESTATION: I have reviewed and interpreted the pertinent images and measurements ofthis study. I attest to the conclusions in the final report that is provided above. Electronically Signed By: Don Santos MD 09/16/2024 12:38:31 PM TAMALE MAKER us Don Santos MD IMG US PROCEDURES Final Re sult * (ABNORMAL) Urinalysis reflex to microscopic and culture Urine (09/11/2024 3:43 PM TAMALE MAKER) Color, ur Other(A) Yellow Clarity, ur Turbid(A) Clear [facility] Specific gravity, ur 1.013 1.003 - 1.030 [facility] pH, urine 7.0 [facility] Comment: Interpretive Data U rine pH is affected by diet, medications, systemic acid-base disturbances, and renal tubular function. pH may affect urinary stone formation. For example, urine pH below 6.0 may help reduce the tendency for calcium phosphate stones and pH greater than 6.0 may reduce the tendency for uric acid stone formation. Source: [facility] Current Interpretive Data was last revised on 2017 Protein, ur ql 3+(A) Negative [facility] Glucose, ur ql Negative Negative [facility] Ketones, ur Negative Negative [facility] Bilirubin, ur Negative Negative [facility] Blood, ur 2+(A) Negative [facility] Urobilinogen, ur <2.0 <2.0 mg/dL [facility] Nitrite, ur Negative Negative [facility] Leukocyte esterase, ur 4+(A) Negative [facility] UA reflex comment Reflex to microscopic UA will be performed. [facility] Urine 09/11/2024 3:43 PM TAMALE MAKER 09/11/2024 3:48 PM TAMALE MAKER Jesu Chew MD LAB MICROBIOLOGY - GENERAL ORDER INOCENTE Final Result Performing Organization Address [facility] de Phone Number [address] [place] [employer] [address] * (ABNORMAL) Urinalysis, microscopic only (09/11/2024 3:43 PM TAMALE MAKER) WBC, ur >50(A) 0 - 5 /HPF RBC, ur 11-20(A) 0 - 2 /HPF [facility] Epithelial cells, squamous, ur 6-10(A) 0 - 5 /HPF [facility] Comment:Suggestive of contam ination. Consider recollection by clean catch. Bacteria, ur 2+(A) [facility] Culture Reflex Comment Reflex to urine culture will be performed. [facility] Urine 09/11/2024 3:43 PM TAMALE MAKER 09/11/2024 3:48 PM TAMALE MAKER Jesu Chew MD LAB URINE ORDERABLES Final Resul t Performing Organization Address [facility] Co de Phone Number [address] [place] [address] * (ABNORMAL) Urine culture Urine (09/11/2024 3:43 PM TAMALE MAKER) Report Final Report: Greater than or equal to 100,000 colonies/mL of Klebsiella pneumoniae The susceptibility pattern of this Klebsiella pneumoniae indicates the possible production of an extended spectrum beta lactamase (ESBL). Patients infected with ESBL-producing organisms require contact isolation precautions. For therapeutic options for this organism, please contact infectious diseases. (.) Comment:Testing performed by : [facility], [address] [place]., [address] Organism KLEBSIELLA PNEUMONIAE YAW Urine 09/11/2024 3:43 PM TAMALE MAKER 09/11/2024 8:58 PM TAMALE MAKER Narrative YAW - 09/15/2024 3:33 PM TAMALE MAKER Urine culture reflexed based upon urinalysis results. Testing performed by [facility] ([phone]) Organism Antibiotic Method Susceptibility Klebsiella pneumoniae Ampicillin INTERPRETATION Resistant Klebsiella pneumoniae Cefazolin INTERPRETATION Resistant Klebsiella pneumoniae Nitrofurantoin INTERPRETATION Resistant Klebsiella pneumoniae Gentamicin INTERPRETATION Resistant Klebsiella pneumoniae Trimethoprim with Sulfamethoxazole INTERPRETATION Resistant Klebsiella pneumoniae Meropenem INTERPRETATION Susceptible Klebsiella pneumoniae Cefepime INTERPRETATION Resistant Klebsiella pneumoniae Ciprofloxacin INTERPRETATION Resistant Klebsiella pneumoniae Ceftazidime INTERPRETATION Resistant Klebsiella pneumoniae Ceftriaxone INTERPRETATION Resistant Klebsiella pneumoniae Piperacillin/Tazobactam INTERPRE TATION Intermediate Klebsiella pneumoniae Cephalexin INTERPRETATION Resistant Klebsiella pneumoniae Cefuroxime-axetil INTERPRETATION Resistant Klebsiella pneumoniae Cefdinir INTERPRETATION Resistant Klebsiella pneumoniae Amikacin INTERPRETATION Susceptible Klebsiella pneumoniae Aztreonam INTERPRETATION Resistant Klebsiella pneumoniae Imipenem INTERPRETATION Susceptible Klebsiella pneumoniae Ertapenem INTERPRETATION Susceptible Klebsiella pneumoniae Minocycline INTERPRETATION Resistant Klebsiella pneumoniae Tobramycin INTERPRETATION Resistant Klebsiella pneumoniae Levofloxacin INTERPRETATION Resistant Klebsiella pneumoniae Doxycycline INTERPRETATION Resistant Klebsiella pneumoniae Ampicillin with Sulbactam INTERP RETATION Resistant us Jesu Chew MD LAB MICROBIOLOGY - GENERAL ORDER INOCENTE Final Result [facility] [address] [facility] Department [place] [address] * POCT glucose (09/11/2024 3:12 PM TAMALE MAKER) Glucose, POC 156 70 - 199 mg/dL Glucose comment 1 Use This Result [facility] Glucose comment 2 RN/MD Notified [facility] Blood 09/11/2024 3:12 PM TAMALE MAKER 09/11/2024 3:12 PM TAMALE MAKER Antonio George MD LAB POCT ORDERABLES - D EVICE Final Result Performing Organization Address [facility] Co de Phone Number [id number] [employer] [place] [address] * Hepatitis B surface antibody (immune status) Blood (09/11/2024 10:58 AM TAMALE MAKER) HBsAb (immune status) Reactive Comment: Interpretive Data Nonreactive: This result is consistent with a lack of immunity to Hepatitis B Virus when used in the setting of routine screening. Equivocal: The immune status of the individual should be further assessed, if appropriate, after consideration of clinical status, risk factors, and additional diagnostic information. Reactive: This result is consistent with immunity to Hepatitis B Virus when used in the setting of routine screening. Current interpretive data was last revised on 19. HBsAb (immune status) index 101.0 mIUnits/m L [facility] Blood 09/11/2024 10:5 8 AM TAMALE MAKER 09/11/2024 11:13 AM TAMALE MAKER Forrest Saucedo MD LAB MICROBIOLOGY - GENERAL OR DERABLES Final Result Performing Organization Address [facility] Co de Phone Number [address] [employer] [place] [address] * Hepatitis B Surface Antigen Blood (09/11/2024 10:58 AM TAMALE MAKER) HepBsAg Nonreactive Nonreactive Blood 09/11/2024 10:5 8 AM TAMALE MAKER 09/11/2024 11:13 AM TAMALE MAKER Forrest Saucedo MD LAB MICROBIOLOGY - GENERAL OR DERABLES Final Result Performing Organization Address [facility] Co de Phone Number [address] [employer] [place] [address] * POCT glucose (09/11/2024 10:43 AM TAMALE MAKER) Glucose, POC 77 70 - 199 mg/dL Glucose comment 1 Use This Result [facility] Blood 09/11/2024 10:4 3 AM TAMALE MAKER 09/11/2024 10:43 AM TAMALE MAKER Jesu Chew MD LAB POCT ORDERABLES - DEVICE Fin al Result Performing Organization Address [facility] Co de Phone Number [address] [employer] [place] [address] * POCT glucose (09/11/2024 10:07 AM TAMALE MAKER) Glucose, POC 97 70 - 199 mg/dL Glucose comment 1 Use This Result [facility] Blood 09/11/2024 10:0 7 AM TAMALE MAKER 09/11/2024 10:07 AM TAMALE MAKER Jesu Chew MD LAB POCT ORDERABLES - DEVICE Fin al Result Performing Organization Address [facility] Co de Phone Number [address] [employer] [place] [address] * (ABNORMAL) Potassium (09/11/2024 10:05 AM TAMALE MAKER) Potassium, pl 6.0(H) 3.3 - 4.9 mmol/L Blood 09/11/2024 10:0 5 AM TAMALE MAKER 09/11/2024 10:11 AM TAMALE MAKER Jesu Chew MD LAB BLOOD ORDERABLES Final Resul t Performing Organization Address [facility] Co de Phone Number [address] [address] * XR Chest 1 Vw Portable (09/11/2024 9:00 AM TAMALE MAKER) Anatomical Region Laterality Modality Body, Chest N/A Computed Radiogr aphy 09/11/2024 9:13 AM TAMALE MAKER Narrative 09/11/2024 9:16 AM TAMALE MAKER EXAM DESCRIPTION: XR CHEST 1 VIEW REASON FOR STUDY: SOB, pulmonary edema suspected Pt with sob, swelling extr x 2-3 days TECHNIQUE: Single radiographic view of the chest. COMPARISON: 07/31/2024, 03/06/2024, 08/25/2024 FINDINGS: Suboptimal evaluation due to patient positioning, rotation, and/or technique. Findings made within these confines. LINES/TUBES: Similar positioning of right IJ large-bore catheter with tip projecting over the right ventricle. LUNGS: No focal consolidation. No pneumothorax. No pleural effusion. HEART/MEDIASTINUM: Unchanged cardiomediastinal contours. Mild cardiomegaly. Mildly prominent central pulmonary vasculature. BONES/SOFT TISSUES: No acute osseous abnormality. IMPRESSION: No radiographic evidence of an acute cardiopulmonary abnormality. THIS IS AN ELECTRONICALLY VERIFIED FINAL REPORT 09/11/2024 9:16 AM - Electronically signed by John CHOW T: Report ID: [id number] Reading Location: [place] [address] Procedure Note John Olivia MD - 09/11/2024 EXAM DESCRIPTION: XR CHEST 1 VIEW REASON FOR STUDY: SOB, pulmonary edema suspected Pt with sob, swelling extr x 2-3 days TECHNIQUE: Single radiographic view of the chest. COMPARISON: 07/31/2024, 03/06/2024, 08/25/2024 FINDINGS: Suboptimal evaluation due to patient positioning, rotation,and/or technique. Findings made within these confines. LINES/TUBES: Similar positioning of right IJ large-bore catheter with tip projecting over the right ventricle. LUNGS: No focal consolidation. No pneumothorax. No pleural effusion. HEART/MEDIASTINUM: Unchanged cardiomediastinal contours. Mildcardiomegaly. Mildly prominent central pulmonary vasculature. BONES/SOFT TISSUES: No acute osseous abnormality. IMPRESSION: No radiographic evidence of an acute cardiopulmonaryabnormality. THIS IS AN ELECTRONICALLY VERIFIED FINAL REPORT 09/11/2024 9:16 AM - Electronically signed by John CHOW T: Report ID: [id number] Reading Location: [id number] Jesu Chew MD IMG XR PROCEDURES Final Result * (ABNORMAL) POC Blood Gas and Chemistries, Venous - (09/11/2024 8:35 AM TAMALE MAKER) pH,ruby POC 7.32 7.32 - 7.43 pCO2, ruby POC 51(H) 40 - 50 mmHg [facility] pO2,ruby POC 34 mmHg [facility] Comment: Interpretive Data No reference range established. Current interpretive data was last revised 2020. HCO3, ruby (Calc) POC 26 20 - 30 mmol/L [facility] Base excess, ruby POC 0 mmol/L [facility] Comment: Interpretive Data No reference range established. Current interpretive data was last revised 2020. Blood 09/11/2024 8:35 AM TAMALE MAKER 09/11/2024 8:35 AM TAMALE MAKER Jesu Chew MD LAB POCT ORDERABLES - DEVICE Fin al Result [place] [id number] [facility] Department of Laboratories [place], [place] [id number] * ECG 12 lead (09/11/2024 8:19 AM TAMALE MAKER) Ventricular Rate EKG/Min 77 BPM [facility] Atrial Rate [address] [facility] [place]-Interval (MSEC) [address] [facility] QRS-Interval (MSEC) [address] [facility] QT-Interval (MSEC) [address] [facility] QTc [address] [facility] P [place] [address] [facility] R [place] [address] [facility] T [place] 37 degrees [facility] Diagnosis Normal sinus rhythm Normal ECG When compared with ECG of 25-AUG-2024 08:51 Confirmed by GUANACO ROBERTS M.D. ([id number]) on 09/11/2024 1:31:09 PM [facility] 09/11/2024 8:19 AM TAMALE MAKER 09/11/2024 1:31 PM TAMALE MAKER us Jesu Chew MD ECG ORDERABLES Final Result [facility] * Influenza A/B, RSV, and COVID-19 PCR Nasopharyngeal (09/11/2024 8:18 AM TAMALE MAKER) Pathologist [facility] COVID-19 RNA Negative Negative Influenza A RNA Negative Negative [facility] Influenza B RNA Negative Negative [facility] RSV RNA Negative Negative [facility] Comment: Interpretive data: Testing performed by [facility]. This test is performed using the [employer] Xpert Xpress CoV-2/Flu/RSV plus assay. This is a multiplex, real-time reverse transcriptase PCR assay intended for the qualitative detection of nucleic acid from SARS-CoV-2, influenza A, influenza B, and respiratory syncytial virus. This assay has been cleared by the [place] Food and Drug administration. The performance characteristics have been verified by the [facility]. Results must be considered in the clinical context, and a negative result does not rule out infection. Interpretive Data last revised 2023 Nasopharyngeal 09/11/2024 8: 18 AM TAMALE MAKER 09/11/2024 8:22 AM TAMALE MAKER Narrative [facility] - 09/11/2024 9:01 AM TAMALE MAKER Is the Patient experiencing symptoms consistent with COVID?->Unknown us Jesu Chew MD LAB MICROBIOLOGY - GENERAL ORDER INOCENTE Final Result Performing Organization Address City/[facility]/ZIP Co de Phone Number [facility] [address] [facility] Department [place] [address] * (ABNORMAL) eGFR (09/11/2024 8:18 AM TAMALE MAKER) eGFR 6(L) >=60 mL/min/1. 73 m2 Comment: Interpretive Data Reference Interval Normal >/= 90 mL/min/1.73m2 Mildly decreased* 60 - 89 mL/min/1.73m2 Mildly to moderately decreased 45 - 59 mL/min/1.73m2 Moderately to severely decreased 30 - 44 mL/min/1.73m2 Severely decreased 15 - 29 mL/min/1.73m2 Kidney Failure < 15 mL/min/1.73m2 *Relative to young adult level Estimated glomerular filtration rate is determined by the 2020 CKD-EPI equation recommended by the National Kidney Foundation (A Unifying Approach to GFR Estimation: Recommendations of the NKF-ASK Task Force on Reassessing the Inclusion of Race in Diagnosing Kidney Disease, JASN 2020). The CKD-EPI equation should not be used for patients with unstable renal function and has not been validated in children and those over 70. Current interpretive data was last reviewed 2021. Blood 09/11/2024 8:18 AM TAMALE MAKER 09/11/2024 8:22 AM TAMALE MAKER us Jesu Chew MD LAB BLOOD ORDERABLES Final Resul t [facility] [address] [facility] Department [place] [address] * (ABNORMAL) Differential, auto (09/11/2024 8:18 AM TAMALE MAKER) Neutrophil abs 7.3(H) 1.5 - 6.5 K/cumm Imm gran abs 0.0 0.0 - 0.1 K/cumm [facility] Lymphocyte abs 0.8 0.8 - 3.3 K/cumm [facility] Monocyte abs 0.4 0.2 - 0.8 K/cumm [facility] Eosinophil abs 0.1 0.0 - 0.5 K/cumm [facility] Basophil abs 0.1 0.0 - 0.1 K/cumm [facility] Neutrophil pct 84.4 % [facility] Comment: Interpretive Data Percent cell count reference ranges are not reported, since discordance with absolute values may lead to misinterpretation of CBC data. Current Interpretive Data was last revised on 2017. Imm gran pct 0.3 % [facility] Comment: Interpretive Data Percent cell count reference ranges are not reported, since discordance with absolute values may lead to misinterpretation of CBC data. Current Interpretive Data was last revised on 2017. Lymphocyte pct 9.0 % [facility] Comment: Interpretive Data Percent cell count reference ranges are not reported, since discordance with absolute values may lead to misinterpretation of CBC data. Current Interpretive Data was last revised on 2017. Monocyte pct 4.5 % [facility] Comment: Interpretive Data Percent cell count reference ranges are not reported, since discordance with absolute values may lead to misinterpretation of CBC data. Current Interpretive Data was last revised on 2017. Eosinophil pct 1.2 % [facility] Comment: Interpretive Data Percent cell count reference ranges are not reported, since discordance with absolute values may lead to misinterpretation of CBC data. Current Interpretive Data was last revised on 2017. Basophil pct 0.6 % [facility] Comment: Interpretive Data Percent cell count reference ranges are not reported, since discordance with absolute values may lead to misinterpretation of CBC data. Current Interpretive Data was last revised on 2017. Blood 09/11/2024 8:18 AM TAMALE MAKER 09/11/2024 8:22 AM TAMALE MAKER us Jesu Chew MD LAB BLOOD ORDERABLES Final Resul t [facility] [address] [facility] Department [place] [address] * (ABNORMAL) CBC with auto differential (09/11/2024 8:18 AM TAMALE MAKER) WBC 8.7 3.8 - 9.9 K/cumm Hgb 13.3 11.9 - 15.5 g/dL [facility] Hct 41.4 35.6 - 45.5 % [facility] Plt 186 150 - 400 K/cumm [facility] MPV 10.4 9.1 - 12.3 fL [facility] RBC 4.42 3.90 - 5.20 M/cumm [facility] MCV 93.7 81.3 - 96.4 fL [facility] MCH 30.1 27.1 - 33.3 pg [facility] MCHC 32.1(L) 32.3 - 35.7 g/dL [facility] RDW CV 15.4(H) 11.1 - 14.9 % [facility] RDW SD 53.1(H) 35.7 - 48.1 fL [facility] NRBC abs 0.00 0.00 - 0.01 K/cumm [facility] Blood 09/11/2024 8:18 AM TAMALE MAKER 09/11/2024 8:22 AM TAMALE MAKER us Jesu Chew MD LAB BLOOD ORDERABLES Final Resul t [facility] [address] [facility] Department [place] [address] * (ABNORMAL) Comprehensive metabolic panel (09/11/2024 8:18 AM TAMALE MAKER) Pathologist [facility] Sodium 141 135 - 145 mmol/L Potassium, pl 6.7(C) 3.3 - 4.9 mmol/L [facility] Comment:Hemolyzed; Potassium value may be falsely elevated by as much as 1.0 mmol/L. Suggest redraw and reanalysis. Critical Result called to and read back by [id number], DATE: 2024-09-11 09:11:28 BY: [id number] Chloride 101 97 - 110 mmol/L [facility] CO2 24 22 - 32 mmol/L [facility] Anion gap 16(H) 2 - 15 mmol/L [facility] BUN 96(H) 6 - 25 mg/dL [facility] Creatinine 7.47(H) 0.60 - 1.10 mg/dL [facility] Glucose 148 70 - 199 mg/dL [facility] Comment: Interpretive Data Fasting glucose >/= 126 mg/dl is diagnostic for diabetes. Fasting is defined as no caloric intake for at least 8 hours. Fasting glucose between 100 mg/dl to 125 mg/dl is diagnostic of prediabetes. In a patient with classic symptoms of hyperglycemia or hyperglycemic crisis, a random glucose >/= 200 mg/dl is diagnostic for diabetes. In the absence of unequivocal hyperglycemia, results should be confirmed by repeat testing. The classification and Diagnosis of Diabetes Diabetes Care 202; 46: S19-S40. Current interpretive data was last revised 2022. Calcium 8.2(L) 8.5 - 10.3 mg/dL [facility] Bilirubin, total 0.3 0.1 - 1.2 mg/dL [facility] Protein, pl 7.9 6.5 - 8.5 g/dL [facility] Albumin 4.3 3.5 - 5.0 g/dL [facility] Alk phos 144(H) 40 - 130 Units/L [facility] ALT 15 7 - 45 Units/L [facility] AST See Comment [facility] Comment:Credited; Hemolyzed Specimen Blood 09/11/2024 8:18 AM TAMALE MAKER 09/11/2024 8:22 AM TAMALE MAKER Jesu Chew MD LAB BLOOD ORDERABLES Final Resul t Performing Organization Address City/[facility] Co de Phone Number [facility] [address] [facility] Department [place] [address] * Hepatitis C antibody Blood (08/25/2024 10:24 AM TAMALE MAKER) [facility] Hep C Ab Nonreactive Nonreactive Comment:Antibodies to HCV no t detected. Does NOT exclude the possibility of recent exposure to HCV. Current interpretive data was last revised on 22 Blood 08/25/2024 10:2 4 AM TAMALE MAKER 08/25/2024 10:58 AM TAMALE MAKER Narrative [facility] - 08/25/2024 11:45 AM TAMALE MAKER This lab is being obtained as part of a Kidney transplant evaluation, is time sensitive, and should only be drawn during the evaluation visit at [address] Lab[address] Ginette Mcgregor MD LAB MICROBIOLOGY - GENERAL ORDERABLES Final Result Performing Organization Address [facility] de Phone Number [facility] Department [place] [address] * (ABNORMAL) Hemoglobin A1c (08/25/2024 10:24 AM TAMALE MAKER) [facility] Hgb A1C 6.9(H) 4.0 - 5.6 % Estimated Average Glucose 151 mg/dL [facility] Comment: The ADA recommends reporting an estimated Average Glucose (eAG) with all Hemoglobin A1c results using the equation derived from a study of 507 normal and diabetic adults. Minority populations were underrepresented and children were not included. (Diabetes Care 2020; 43(S1): S66-S76). The eAG is not equivalent to a fasting glucose. Blood 08/25/2024 10:2 4 AM TAMALE MAKER 08/25/2024 10:58 AM TAMALE MAKER Narrative [facility] - 08/25/2024 11:27 AM TAMALE MAKER This lab is being obtained as part of a Kidney transplant evaluation, is time sensitive, and should only be drawn during the evaluation visit at [facility] Lab. us Ginette Mcgregor MD LAB BLOOD ORDERABLE S Final Result [facility] Department [place] [address] * Lipid panel (08/25/2024 10:24 AM TAMALE MAKER) Cholesterol 188 30 - 199 mg/dL Comment: Interpretive Data Ages < or = 19 years Acceptable: <170 mg/dL Borderline high: 170-199 mg/dL High: >or= 200 mg/dL Ages > or = 20 years Desirable: <200 mg/dL Borderline high: 200-239 mg/dL High: >or= 240 mg/dL Literature References: 1. Expert Panel on Integrated Guidelines for Cardiovascular Health and Risk Reduction in Children and Adolescents. Pediatrics 2011;128:S213 2. NCEP Expert Panel. Circulation 2004;110:227 Current Interpretive Data was last revised on 2018. Triglycerides 49 <=149 mg/dL [facility] Comment: Interpretive Data Ages < or = 9 years Acceptable: <75 mg/dL Borderline high: 75-99 mg/dL High: >or= 100 mg/dL Ages 10 to 20 years Acceptable: <90 mg/dL Borderline high: 90-129 mg/dL High: >or= 130 mg/dL Ages > or = 20 years Desirable: <150 mg/dL Borderline high: 150-199 mg/dL High: 200-499 mg/dL Very high: >or= 499 mg/dL Literature References: 1. Expert Panel on Integrated Guidelines for Cardiovascular Health and Risk Reduction in Children and Adolescents. Pediatrics 2011;128:S213 2. NCEP Expert Panel. Circulation 2004;110:227 Current Interpretive Data was last revised on 2018. HDL 72 >=40 mg/dL [facility] Comment: Interpretive Data Ages < or = 19 years Acceptable: >45 mg/dL Borderline low: 40-45 mg/dL Low: <40 mg/dL Ages > or = 20 years Desirable: >or= 60 mg/dL Low: <40 mg/dL Literature References: 1. Expert Panel on Integrated Guidelines for Cardiovascular Health and Risk Reduction in Children and Adolescents. Pediatrics 2011;128:S213 2. NCEP Expert Panel. Circulation 2004;110:227 Current Interpretive Data was last revised on 2018. LDL, calculated 106 <=129 mg/dL [facility] Comment: Interpretive Data Ages < or = 19 years Acceptable: <110 mg/dL Borderline high: 110-129 mg/dL High: >or= 130 mg/dL Ages > or = 20 years Optimal: <100 mg/dL Near optimal: 100-129 mg/dL Borderline high: 130-159 mg/dL High: >160 mg/dL Calculated using the Juanito LDL-C estimating equation. This equation was implemented on 2024. Prior to this date LDL-C was estimated using the Friedewald equation. Literature References: 1. Expert Panel on Integrated Guidelines for Cardiovascular Health and Risk Reduction in Children and Adolescents. Pediatrics 2011;128:S213 2. NCEP Expert Panel. Circulation 2004;110:227 3. Juanito Manuel et al. YRN Cardiol. 2019November 20;5(5):540-548. doi: 10.1001/jamacardio.2020.0013 Current Interpretive Data was last revised on 2024. Non-HDL Cholesterol 116 mg/dL [facility] Comment: Interpretive Data Ages < or = 19 years Acceptable: <120 mg/dL Borderline high: 120-144 mg/dL High: >145 mg/dL Ages > or = 20 years When triglycerides are >200 mg/dL, Non-HDL cholesterol is a secondary target of therapy with treatment goals that are 30 mg/dL greater than the LDL cholesterol target. Literature References: 1. Expert Panel on Integrated Guidelines for Cardiovascular Health and Risk Reduction in Children and Adolescents. Pediatrics 2011;128:S213 2. NCEP Expert Panel. Circulation 2004;110:227 Current Interpretive Data was last revised on 2018. Chol/HDL ratio 3 [facility] Blood 08/25/2024 10:2 4 AM TAMALE MAKER 08/25/2024 10:58 AM TAMALE MAKER Narrative YAW [facility] - 08/25/2024 11:40 AM TAMALE MAKER This lab is being obtained as part of a Kidney transplant evaluation, is time sensitive, and should only be drawn during the evaluation visit at [facility] Lab. Ginette Mcgregor MD LAB BLOOD ORDERABLE S Final Result Performing Organization Address City/[facility]/ZIP Co de Phone Number [facility] Department [place] [address] * (ABNORMAL) Albumin Creatinine Ratio, Urine (10/05/2023 3:35 AM CDT) Albumin Ur 267.0 mg/L Comment: Interpretive Data No reference range established. Current interpretive data was last revised 2018. Creatinine Ur 15.9 mg/dL [facility] Comment: Interpretive Data No reference range established. Current interpretive data was last revised 2018. Albumin Creatinine Ratio, Ur 1,679(H) 1 - 29 mg/g [facility] Urine 10/05/2023 3:35 AM CDT 10/05/2023 3:44 AM CDT Forrest Saucedo MD LAB URINE ORDERABLES Final Re sult Performing Organization Address City/[facility]/ZIP Co de Phone Number [facility] [address] [facility] Department [place] [address] from Last 3 Months or Most Recently Relevant to Health Maintenance Additional Health Concerns Infection Onset Date Last Indicated MDR gram neg/ESBL 09/11/2024 09/11/2024 Insurance [facility] MEDICARE ADVANTAGE Member Subscriber Plan / Payer (Ef fective 2023-Present) Name:Jennifer Carter Relation to Subscriber:Self Name:Jennifer Carter Payer ID:[id number] (NAIC) Type:UHC MEDICARE Address: [place] [phone] GENERIC [employer]IST Member Subscriber Plan / Payer (Ef fective 2024-Present) Name:Jennifer Carter Relation to Subscriber:Self Name:Jennifer Carter Payer ID:[id number] (NAIC) Group ID:Not on file Type:GLOBAL/TRANSPLANT Address: [address] [facility] [employer] [place] [phone] [employer] [place] [address] [employer] Advance Directives For more information, please contact: [phone] * Full Code (Latest Code Status on File) Date Activated Date Inactivated Comments 09/18/2024 5:55 PM 09/21/2024 7:16 PM * Full Code Date Activated Date Inactivated Comments 07/31/2024 5:18 PM 08/01/2024 8:20 PM * Full Code Date Activated Date Inactivated Comments 02/29/2024 2:04 PM 03/10/2024 4:48 PM * Full Code Date Activated Date Inactivated Comments 11/09/2023 7:13 PM 11/14/2023 5:45 PM * Full Code Date Activated Date Inactivated Comments 10/02/2023 8:00 PM 10/05/2023 5:19 PM Care Teams Turbo Operator Relationship Specialty Start Date End Date Deanna Wyatt PA [address] [place] [id number] PCP - General Physician Ext Js Developer 11/11/23 Deanna Wyatt PA [address] [place] [id number] Physician Ext Js Developer 11/09/23 Rissa Sprague MD [address] [place] [id number] Consulting Physician Pulmonary Disease 10/05/23 Shireen Marino, RN [address] [facility] [address] [place] [address] Silk Conditioner 05/07/24 Td Nicolas MD PhD [address] [facility] [address] [place] [address] Consulting Physician Endocrinology Diabetes & Metabolism 06/06/24 Amrik Mata MD [address] [address] Referring Physician Nephrology 06/06/24
--- OUTSIDE RECORDS SUMMARY | 2024-11-25 16:33 | XMS_ITS | Clinical Summary ---
Author Organization [facility] Address [address] [place] [address] Care Team Providers Care Lockstitch Pocket Setter Name Role Phone None, Provider MD Primary Care Provider Unavaila ble Social History Tobacco Use Types Packs/Day Years Used Date Smoking Tobacco: Never Assessed Comments Unknown Sex and Gender Information Value Date Recorded Sex Assigned at Not on file Legal Sex Female 11:04 AM CDT Gender Identity Not on file Sexual Orientation Not on file Plan of Treatment Health Maintenance Due Date Last Done Comments Cervical Cancer Screening Pa p Smear (Age 30 to 64) Every 3 Years 1974 Colorectal Cancer Screening Colonoscopy (10 Years) 1974 Hemoglobin A1C 1974 Lipid Panel 1974 Annual Physical 1977 Diabetes: Retinopathy Eye Exam 01/17/1992 Hepatitis C 01/17/1992 DTaP, Tdap and Td Vaccines ( 1 - Tdap) 1993 Hepatitis B Vaccines (1 of 3 - 19+ 3-dose series) 1993 Pneumococcal Vaccine: 50+ Ye ars (1 of 2 - PCV) 1993 Cervical Cancer Screening Pa p with HPV Testing (Age 30 to 64) Every 5 Years 01/17/2004 Cervical Cancer Screening with HPV 01/17/2004 Mammogram Screening 2014 Zoster Vaccines (1 of 2) 01/17/2024 COVID-19 Vaccine (2023-2 5 season) 2024 PHQ-2 (Physician [place]) 07/23/2024 Meningococcal B Vaccine Aged Out No l onger eligible based on patient's age to complete this topic Meningococcal Vaccine Aged Out No joselin erica eligible based on patient's age to complete this topic RSV Immunizations Under 20 Months Aged Out No longer eligible based on patient's age to complete this topic Insurance [facility] MEDICAID Care Teams Lockstitch Pocket Setter Relationship Specialty Start Date End Date None, Provider, PCP - General UNKNOWN PHYSICIAN SPECIALTY 07/23/23
--- OUTSIDE RECORDS SUMMARY | 2024-11-25 16:34 | XMS_ITS ---
Author Organization [facility] Address [address] [place] [address] Care Team Providers Care Grab Hooker Name Role Phone Deanna Wyatt Primary Care Provider [phone] Deanna Wyatt Unavailable [phone] Rissa Sprague MD Unavailable [phone] Shireen Marino RN Unavailable [phone] Td Nicolas MD PhD Unavailable [phone] Amrik Mata MD Unavailable [phone] Dialysis Access Sites Type Status Location Placement Date Removal Da te Hemodialysis Cath Double 03/05/24 Tunneled catheter Right Internal Jugular Active Right Neck (side) - Anterior 03/05/2024 Peritoneal Dialysis Catheter Other (Comment) Chest Inactive Neck - Anterior 03/05/2024 03/05/2024 Procedures Procedure Name Priority Date/Time Associated Diagnosis Comments POCT GLUCOSE DEVICE Routine 10/13/2024 9 :12 AM CDT PA AN PROCEDURE PLACEHOLDER Routine 10/13/2024 7:47 AM CDT PA AN ELECTIVE ENDOTRACHEAL AIRWAY Routine 10/13/2024 7:47 [...] GLUCOSE DEVICE Routine 09/21/2024 1 1:53 AM ARCHIVAL RECORDS CLERK POCT GLUCOSE DEVICE Routine 09/21/2024 7 :50 AM ARCHIVAL RECORDS CLERK EGFR Routine 09/21/2024 4:31 AM ARCHIVAL RECORDS CLERK DIFFERENTIAL AUTO Routine 09/21/2024 4:3 1 AM ARCHIVAL RECORDS CLERK MAGNESIUM Routine 09/21/2024 4:31 AM ARCHIVAL RECORDS CLERK BASIC METABOLIC PANEL Routine 09/21/2024 4:31 AM ARCHIVAL RECORDS CLERK HEPATIC FUNCTION PANEL Routine 09/21/2024 4:31 AM ARCHIVAL RECORDS CLERK CBC WITH AUTO DIFFERENTIAL Routine 09/21/2024 4:31 AM ARCHIVAL RECORDS CLERK POCT GLUCOSE DEVICE Routine 09/20/2024 8 :07 PM ARCHIVAL RECORDS CLERK POCT GLUCOSE DEVICE Routine 09/20/2024 4 :37 [address] HEAD WO CONTRAST ED Urgent/IP Urgent 09/20/2024 1:57 PM ARCHIVAL RECORDS CLERK POCT GLUCOSE DEVICE Routine 09/20/2024 1 :10 PM ARCHIVAL RECORDS CLERK POCT GLUCOSE DEVICE Routine 09/20/2024 8 :20 AM ARCHIVAL RECORDS CLERK LIPASE Routine 09/20/2024 6:29 AM ARCHIVAL RECORDS CLERK EGFR Routine 09/20/2024 6:29 AM ARCHIVAL RECORDS CLERK DIFFERENTIAL AUTO Routine 09/20/2024 6:2 9 AM ARCHIVAL RECORDS CLERK MAGNESIUM Routine 09/20/2024 6:29 AM ARCHIVAL RECORDS CLERK BASIC METABOLIC PANEL Routine 09/20/2024 6:29 AM ARCHIVAL RECORDS CLERK HEPATIC FUNCTION PANEL Routine 09/20/2024 6:29 AM ARCHIVAL RECORDS CLERK CBC WITH AUTO DIFFERENTIAL Routine 09/20/2024 6:29 AM ARCHIVAL RECORDS CLERK POCT GLUCOSE DEVICE Routine 09/20/2024 6 :19 AM ARCHIVAL RECORDS CLERK POCT GLUCOSE DEVICE Routine 09/19/2024 8 :26 PM ARCHIVAL RECORDS CLERK POCT GLUCOSE DEVICE Routine 09/19/2024 4 :43 [address]AL RECORDS CL[address] ABDOMEN PELVIS WO CONTRAST ED Urgent/IP Urgent 09/19/2024 1:08 PM ARCHIVAL RECORDS CLERK POCT GLUCOSE DEVICE Routine 09/19/2024 1 1:26 AM ARCHIVAL RECORDS CLERK HCG, BLOOD, QUANTITATIVE STAT 09/19/2024 10:48 AM ARCHIVAL RECORDS CLERK HEMODIALYSIS Routine 09/19/2024 10:31 AM ARCHIVAL RECORDS CLERK POCT GLUCOSE DEVICE Routine 09/19/2024 8 :28 AM ARCHIVAL RECORDS CLERK EGFR Routine 09/19/2024 6:44 AM ARCHIVAL RECORDS CLERK DIFFERENTIAL AUTO Routine 09/19/2024 6:4 4 AM ARCHIVAL RECORDS CLERK CBC WITH AUTO DIFFERENTIAL Routine 09/19/2024 6:44 AM ARCHIVAL RECORDS CLERK PHOSPHORUS Routine 09/19/2024 6:44 AM ARCHIVAL RECORDS CLERK MAGNESIUM Routine 09/19/2024 6:44 AM ARCHIVAL RECORDS CLERK COMPREHENSIVE METABOLIC PANEL Routine 09/19/2024 6:44 AM ARCHIVAL RECORDS CLERK POCT GLUCOSE DEVICE Routine 09/18/2024 7 :37 PM ARCHIVAL RECORDS CLERK US KIDNEY COMPLETE IP Routine 09/18/2024 7: 21 PM ARCHIVAL RECORDS CLERK BUN Routine 09/18/2024 6:45 PM ARCHIVAL RECORDS CLERK POTASSIUM LEVEL Timed 09/18/2024 6:45 PM ARCHIVAL RECORDS CLERK POCT GLUCOSE DEVICE Routine 09/18/2024 5 :58 PM ARCHIVAL RECORDS CLERK POTASSIUM LEVEL STAT 09/18/2024 2:00 PM ARCHIVAL RECORDS CLERK POCT GLUCOSE DEVICE Routine 09/18/2024 1 :28 PM ARCHIVAL RECORDS CLERK HEMODIALYSIS Routine 09/18/2024 12:48 PM ARCHIVAL RECORDS CLERK POCT GLUCOSE DEVICE Routine 09/18/2024 1 1:58 AM ARCHIVAL RECORDS CLERK URINALYSIS, MICROSCOPIC ONLY STAT 09/18/2024 10:15 AM ARCHIVAL RECORDS CLERK URINE CULTURE STAT 09/18/2024 10:15 AM ARCHIVAL RECORDS CLERK URINALYSIS AND REFLEX TO MICROSCOPIC AND CULTURE STAT 09/18/2024 10:15 AM ARCHIVAL RECORDS CLERK POC BLOOD GAS AND CHEMISTRIES, VENOUS Routine 09/18/2024 10:12 AM ARCHIVAL RECORDS CLERK ECG 12-LEAD STAT 09/18/2024 9:44 AM ARCHIVAL RECORDS CLERK MAGNESIUM STAT 09/18/2024 9:38 AM ARCHIVAL RECORDS CLERK PHOSPHORUS STAT 09/18/2024 9:38 AM ARCHIVAL RECORDS CLERK EGFR STAT 09/18/2024 9:38 AM ARCHIVAL RECORDS CLERK DIFFERENTIAL AUTO STAT 09/18/2024 9:3 8 AM ARCHIVAL RECORDS CLERK COMPREHENSIVE METABOLIC PANEL STAT 09/18/2024 9:38 AM ARCHIVAL RECORDS CLERK CBC WITH AUTO DIFFERENTIAL STAT 09/18/2024 9:38 AM ARCHIVAL RECORDS CLERK US VEIN MAPPING DUPLEX UPPER EXTREMITY BILATERAL Schedule Routine, Read Routine (OP Routine) 09/16/2024 1:28 PM ARCHIVAL RECORDS CLERK Pre-operative exam End stage renal disease (HCC) URINALYSIS, MICROSCOPIC ONLY STAT 09/11/2024 3:43 PM ARCHIVAL RECORDS CLERK URINE CULTURE STAT 09/11/2024 3:43 PM ARCHIVAL RECORDS CLERK URINALYSIS AND REFLEX TO MICROSCOPIC AND CULTURE STAT 09/11/2024 3:43 PM ARCHIVAL RECORDS CLERK POCT GLUCOSE DEVICE Routine 09/11/2024 3 :12 PM ARCHIVAL RECORDS CLERK HEPATITIS B SURFACE ANTIGEN STAT 09/11/2024 10:58 AM ARCHIVAL RECORDS CLERK HEPATITIS B SURFACE ANTIBODY (IMMUNE STATUS) STAT 09/11/2024 10:58 AM ARCHIVAL RECORDS CLERK POCT GLUCOSE DEVICE Routine 09/11/2024 1 0:43 AM ARCHIVAL RECORDS CLERK POCT GLUCOSE DEVICE Routine 09/11/2024 1 0:07 AM ARCHIVAL RECORDS CLERK POTASSIUM LEVEL Timed 09/11/2024 10:05 AM ARCHIVAL RECORDS CLERK HEMODIALYSIS Routine 09/11/2024 9:32 AM ARCHIVAL RECORDS CLERK XR CHEST 1 VIEW ED 09/11/2024 9:00 AM ARCHIVAL RECORDS CLERK POC BLOOD GAS AND CHEMISTRIES, VENOUS Routine 09/11/2024 8:35 AM ARCHIVAL RECORDS CLERK ECG 12-LEAD STAT 09/11/2024 8:19 AM ARCHIVAL RECORDS CLERK EGFR STAT 09/11/2024 8:18 AM ARCHIVAL RECORDS CLERK DIFFERENTIAL AUTO STAT 09/11/2024 8:1 8 AM ARCHIVAL RECORDS CLERK COMPREHENSIVE METABOLIC PANEL STAT 09/11/2024 8:18 AM ARCHIVAL RECORDS CLERK CBC WITH AUTO DIFFERENTIAL STAT 09/11/2024 8:18 AM ARCHIVAL RECORDS CLERK INFLUENZA A/B, RSV, AND COVID-19 PCR STAT 09/11/2024 8:18 AM ARCHIVAL RECORDS CLERK HEPATITIS C ANTIBODY Routine 08/25/2024 10:24 AM ARCHIVAL RECORDS CLERK Pre-transplant evaluation for kidney transplant End stage renal disease (HCC) HEMOGLOBIN A1C Routine 08/25/2024 10:24 AM ARCHIVAL RECORDS CLERK Pre-transplant evaluation for kidney transplant End stage renal disease (HCC) LIPID PANEL Routine 08/25/2024 10:24 AM ARCHIVAL RECORDS CLERK Pre-transplant evaluation for kidney transplant End stage renal disease (HCC) ALBUMIN CREATININE RATIO, URINE Routine 10/05/2023 3:35 AM CDT from Last 3 Months or Most Recently Relevant to Health Maintenance Allergies No known active allergies Medications loratadine [...] 03/07/2024 Assessment & Plan (09/16/2024 1:13 PM ARCHIVAL RECORDS CLERK): Impression: Chronic and stable. Plan: Continue amlodipine Assessment & Plan (03/31/2024 3:23 PM CDT): Continue antihypertensive ESRD on hemodialysis 03/04/2024 Assessment & Plan (09/16/2024 1:12 PM ARCHIVAL RECORDS CLERK): Impression: Patient is being dialyzed through a [...] - Patient to be evaluated from his field services analyst for cardiac clearance prior to surgery -Continue [...] surgery with Dr. 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 - Orthostatic 4/20, s/p IVF bolus 500ml. - cont calcitriol. 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 Discussed R/B/A of anti-VEGF and patient wishes to proceed. I'VE today Warning Sx endophthalmitis discussed Chronic cough 08/03/2023 Nonsmoker 08/03/2023 Vomiting 06/09/2023 Assessment & Plan (06/12/2023 10:58 AM ARCHIVAL RECORDS CLERK): Patient with vomiting after surgical procedure under anesthesia. Vomiting started to improve without any episodes in over 12 hours, then she was unable to tolerate anything PO. - IV anti emetics ordered, transitioned to PO as patient reports improvement in symptoms. Tolerating diet currently JOAN (acute kidney injury) 06/09/2023 Assessment & Plan (06/11/2023 11:54 AM ARCHIVAL RECORDS CLERK): Per documentation patient with CKD stage 3. [...] 05/23 Assessment & Plan (09/16/2024 1:11 PM ARCHIVAL RECORDS CLERK): Impression: Chronic with good glucose control Plan: [...] CGM No results found for: CPEPTIDE , FIC06KL , IA2AB Lab Results Component Value Date [...] insulin Assessment & Plan (06/10/2023 6:03 PM ARCHIVAL RECORDS CLERK): Patient on home Farxiga, Januvia, and metformin - A1c 6.9 - hold oral medications - sliding scale insulin and consistent carb diet given decreased p.o. - blood glucose stable Chronic diastolic heart failure 06/09/2023 Assessment & Plan (06/11/2023 11:56 AM ARCHIVAL RECORDS CLERK): Chart review of history of chronic diastolic heart failure. No echocardiogram in our system. Patient reports following with Dr. 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 Discussed R/B/A of likely anti-VEGF right eye (OD) at follow up with Dr. Calvo Assessment & Plan (06/19/2023 10:16 AM ARCHIVAL RECORDS CLERK): S/p PPV laser MP OD PRP OS Taper drops PF Discontinue antibiotic Assessment & Plan (06/11/2023 11:48 AM ARCHIVAL RECORDS CLERK): Patient with recent surgical procedure by Ophthalmology. Had postop follow-up eye appointment without complication. - continue outpatient drops as prescribed. - will continue to hold aspirin as unclear when patient was supposed to restart this medication and patient planning to call ophthalmology office today to find out Assessment & Plan (05/29/2023 9:10 AM ARCHIVAL RECORDS CLERK): Discussed DRCR studies and discussed severity of [...] laser OS Pseudophakia of both eyes 05/29/2023 Immunizations Immunization Administration Dates Next Due Hep B Vaccine 05/15/2024,04/19/2024,03/15/2024 Influenza, Trivalent, IM (MDV) 04/16/2024 Influenza, Trivalent, Preser vative Free, Intramuscular 04/11/2024 Influenza, Unspecified 04/16/2024 PPD TEST 03/18/2024 Pneumococcal Conjugate Pcv20 08/28/2024 Tdap 08/10/2022,06/03/2020 Social History Tobacco Use Types Packs/Day Years Used Date Smoking Tobacco: Never Passive Smoke Exposure: Never Smokeless Tobacco: Never Tobacco Cessation:Counseling Given: Yes [facility] Utilities Answer Date Recorded In the past 12 months has th e [email or web address], gas, oil, or water company threatened to [...] week 09/19/2024 How often do you attend [facility] or yarsanism services? Never 09/19/2024 Do you belong to any clubs o r organizations such as mandaeism groups, unions, fraternal or athletic groups, or [...] staff should administer the PHQ-9) 0 09/13/2024 [facility] - Occupational Stress Questionnaire Answer Date Recorded [...] place to sleep or slept in a fpc (including now)? No 11/16/2023 PHQ-9 Answer Date [...] any time in the past 12 m [facility], were you homeless or living in a fpc (including now)? No 09/19/2024 Personal Safety Answer [...] Mass Index 25.7 11/03/2024 2:22 PM CDT Results * POCT glucose (10/13/2024 9:12 AM CDT) [facility] Signature Glucose, POC 125 70 - 199 mg/dL Glucose comment 1 Will Repeat Test YAW BOOKER Blood 10/13/2024 9:12 AM CDT 10/13/2024 9:12 AM CDT us Vinayak Santos MD LAB POCT ORDERABLES - DEVICE Fin al Result YAW BOOKER [address] [facility] Department [place] [address] * PA AN ELECTIVE ENDOTRACHEAL AIRWAY, PA AN PROCEDURE PLACEHOLDER (10/13/2024 7:47 AM CDT) Narrative Addison Chandler CRNA - 10/13/2024 7:47 AM CDAddison Kc CRNA 10/13/2024 7:47 AM Airway Patient location: OR Urgency: elective Indications for airway management: anesthesia Difficult airway: no Staff: Supervising provider: Josselyn Bruno MD Placed by: [employer]: Addison Chandler CRNA Emergent airway documentation: Risks [...] ECG 12 lead (10/13/2024 7:04 AM CDT) Pathologist [facility] Ventricular Rate EKG/Min [address] [facility] Atrial Rate 99 BPM [facility] PA-Interval (MSEC) 172 ms [facility] QRS-Interval (MSEC) 88 ms [facility] QT-Interval (MSEC) [address] [facility] QTc 456 ms [facility] P [place] 52 degrees [facility] R [place] 27 degrees [facility] T [place] 26 degrees [facility] Diagnosis Normal sinus rhythm Left atrial abnormality . Minimal voltage criteria for LVH, may be normal variant ( Crenshaw product ) When compared with ECG of 18-SEP-2024 09:44, No significant change was found Confirmed by SULTAN CHRISTINA M.D. ([id number]) on 10/13/2024 2:40:51 PM [facility] 10/13/2024 7:04 AM CDT 10/13/2024 2:40 PM CDT us Josselyn Bruno MD ECG ORDERABLES Final Result [facility] * (ABNORMAL) eGFR (10/13/2024 6:03 AM CDT) [...] ORDERABLES Final Resul t Performing Organization Address [facility] Co de Phone Number YAW [address] [place] [address] * POCT glucose (10/13/2024 6:03 AM CDT) Glucose, POC 137 70 - 199 mg/dL Glucose comment 1 Will Repeat Test YAW BOOKER Blood 10/13/2024 6:03 AM CDT 10/13/2024 6:03 AM CDT Vinayak Santos MD LAB POCT ORDERABLES - DEVICE Fin al Result Performing Organization Address City/[facility] Co de Phone Number [address]ER[address] [place] [address] * aPTT (10/13/2024 6:03 AM CDT) Pathologist [facility] aPTT 32 22 - 37 sec Comment: Interpretive data aPTT test has not been evaluated for monitoring heparin therapy. The anti-Xa is the preferred test. Current interpretive data was last revised on 2019. Blood 10/13/2024 6:03 AM CDT 10/13/2024 6:08 AM CDT Vinayak Santos MD LAB BLOOD ORDERABLES Final Resul t Performing Organization Address [facility] Co de Phone Number [address] [address] * Protime-INR (10/13/2024 6:03 AM CDT) Pathologist [facility] PT 13.9 12.0 - 14.6 sec INR 1.1 0.9 - [facility].[address] [facility] [facility] Comment: Ref Range High Interpretive data Oral anticoagulant therapeutic ranges: Venous thromboembolism prophylaxis or treatment: 2.0-3.0 CARDIOLOGY Standard range: 2.0-3.0 High-intensity range: 2.5-3.5 Refer to indication-specific guidelines for appropriate target ranges for prosthetic heart valve replacement. Current interpretive data was last revised on 2019. Blood 10/13/2024 6:03 AM CDT 10/13/2024 6:08 AM CDT Vinayak Santos MD LAB BLOOD ORDERABLES Final Resul t [address] [address] * CBC without differential (10/13/2024 6:03 AM CDT) Pathologist [facility] WBC 5.8 3.8 - 9.9 K/cumm Hgb 13.2 11.9 - 15.5 g/dL [facility] Hct 39.2 35.6 - 45.5 % [facility] Plt 188 150 - 400 K/cumm [facility] MPV 10.0 9.1 - 12.3 fL [facility] RBC 4.42 3.90 - 5.20 M/cumm [facility] MCV 88.7 81.3 - 96.4 fL [facility] MCH 29.9 27.1 - 33.3 pg [facility] MCHC 33.7 32.3 - 35.7 g/dL [facility] RDW CV 14.0 11.1 - 14.9 % [facility] RDW SD 45.1 35.7 - 48.1 fL [facility] NRBC abs 0.00 0.00 - 0.01 K/cumm [facility] Blood 10/13/2024 6:03 AM CDT 10/13/2024 6:08 AM CDT Vinayak Santos MD LAB BLOOD ORDERABLES Final Resul t Performing Organization Address [facility] de Phone Number [address] [email or web address] [address] * (ABNORMAL) hCG, blood, quantitative (10/13/2024 6:03 AM CDT) [facility] hCG, quant 7.8(H) 0.0 - 5.0 IUnits/L [...] ORDERABLES Final Resul t Performing Organization Address City/[facility] Co de Phone Number [address] [place] [address] * (ABNORMAL) Basic metabolic panel (10/13/2024 6:03 AM CDT) [facility] Sodium 139 135 - 145 mmol/L Potassium, pl 4.1 3.3 - 4.9 mmol/L [facility] Comment:Hemolyzed; Potassium value may be falsely elevated by as much as 1.0 mmol/L. Suggest redraw and reanalysis. Chloride 93(L) 97 - 110 mmol/L [facility] CO2 29 22 - 32 mmol/L [facility] Anion gap 17(H) 2 - 15 mmol/L [facility] BUN 43(H) 6 - 25 mg/dL [facility] Creatinine 6.65(H) 0.60 - 1.10 mg/dL [facility] Glucose 140 70 - 199 mg/dL [facility] Comment: Interpretive Data Fasting glucose >/= 126 [...] 2022. Calcium 9.2 8.5 - 10.3 mg/dL [facility] Blood 10/13/2024 6:03 AM CDT 10/13/2024 6:08 AM CDT us Vinayak Santos MD LAB BLOOD ORDERABLES Final Resul t [facility] [address] [facility] Department [place] [address] * POCT hCG, urine (10/13/2024 6:00 AM CDT) [facility] HCG, ur, POC Negative Negative Lot Number [id number] QC Backgroud Clear Acceptable QC Control Line Acceptable Urine 10/13/2024 6:00 AM CDT us Vinayak Santos MD POINT OF CARE TEST [...] Proparacaine 0.5%. The anesthesia lot number is [id number]. The expiration date is . The manufacture of the medication is [employer]. Intravitreal Injection, Pharmacologic Agent Preparation included 5% betadine to ocular surface, 10% betadine to eyelids, eyelid speculum. A 30 gauge needle was used. Pharmaceutical Medication: 2 mg aflibercept syringe 2 mg/0.05 mL Route: intravitreal, Site: Left Eye [facility]: 43220-560-17, Lot: [id number], Expiration date: 05/22/2025, Waste: 0 mL The [...] 09/30/2024 Mann Calvo MD PhD [facility] Final Result * Six Minute Walk - (09/29/2024 8:17 AM CDT) Anatomical Region Laterality Modality PFT Narrative 10/01/2024 5:24 PM CDT Table formatting from the original result was not included. Teresa Patel RRT on 09/29/2024 8:39 AM Table formatting from the original note was not included. 6 MINUTE WALK RESULTS Name: Jennifer Carter : 1975 DOS: 09/29/2024 Diagnosis: Ktx eval WINDOWS DESKTOP SUPPORT performed walk: Jeffrey Patel Rest: 1 min [...] AM CDT Narrative 09/29/2024 2:26 PM CDT [facility] [place] [address] Transthoracic Echocardiographic Report Patient Name: JENNIFER CRATER : 1975 (49y 8m) Gender: F Study Date: 09/29/2024 07:18:43 AM Ht(Inch): 68 Wt(Lb): 162.92 BSA: 1.88 Sustainable Design Consultant: LEANDRO Banda Location: [facility] Order Provider: GINETTE MCGREGOR Heart Rate: 73 BMI: 24.77 BP: 179 / 88 Quality: The study images were of technically good quality. Ref Provider: GINETTE MCGREGOR PROCEDURES: Echocardiographic Report: ([id number], [id number]) Transthoracic complete echo with strain imaging, 2D, [...] Procedure Note Anish Antonio MD - 09/29/2024 [facility] [place] [address] Transthoracic Echocardiographic Report Patient Name: JENNIFER CARTER : 1975 (49y 8m) Gender: F Study Date: 09/29/2024 07:18:43 AM Ht(Inch): 68 Wt(Lb): 162.92 BSA: 1.88 Sustainable Design Consultant: LEANDRO Banda Location: [facility] Order Provider:GINETTE MCGREGOR Heart Rate: 73 BMI: 24.77 BP: 179 / 88 Quality: The study images were oftechnically good quality. Ref Provider: MCGREGORGINETTE TROY PROCEDURES: Echocardiographic Report: ([id number], [id number]) Transthoracic complete echo withstrain imaging, 2D, spectral [...] study completed on 08/25/2024. No change compared [facility] study. ATTESTATION: I have reviewed and interpreted [...] Anish Antonio M.D. 09/29/2024 2:25:41 PM CDT Ginette Mcgregor MD CV ECHO PROCEDURES Final Result * POCT glucose (09/21/2024 11:53 AM ARCHIVAL RECORDS CLERK) Glucose, POC 152 70 - 199 mg/dL Blood 09/21/2024 11:5 3 AM ARCHIVAL RECORDS CLERK 09/21/2024 11:53 AM ARCHIVAL RECORDS CLERK Galo Smith MD LAB POCT ORDERABLES - D EVICE Final Result YAW [address] [place] [address] * POCT glucose (09/21/2024 7:50 AM ARCHIVAL RECORDS CLERK) Pathologist [facility] Glucose, POC 171 70 - 199 mg/dL Blood 09/21/2024 7:50 AM ARCHIVAL RECORDS CLERK 09/21/2024 7:50 AM ARCHIVAL RECORDS CLERK Galo Smith MD LAB POCT ORDERABLES - D EVEMILIO Final Result Performing Organization Address [facility] de Phone Number YAW [address] [address] * (ABNORMAL) eGFR (09/21/2024 4:31 AM ARCHIVAL RECORDS CLERK) [facility] eGFR 10(L) >=60 mL/min/1. 73 m2 Comment: [...] last reviewed 2021. Blood 09/21/2024 4:31 AM ARCHIVAL RECORDS CLERK 09/21/2024 5:12 AM ARCHIVAL RECORDS CLERK Galo Smith MD LAB BLOOD ORDERABLES Fi nal Result YAW [address] [facility] Department [place] [address] * Differential, auto (09/21/2024 4:31 AM ARCHIVAL RECORDS CLERK) Neutrophil abs 2.8 1.5 - 6.5 K/cumm Imm gran abs 0.0 0.0 - 0.1 K/cumm [facility] Lymphocyte abs 1.5 0.8 - 3.3 K/cumm [facility] Monocyte abs 0.4 0.2 - 0.8 K/cumm [facility] Eosinophil abs 0.1 0.0 - 0.5 K/cumm [facility] Basophil abs 0.1 0.0 - 0.1 K/cumm [facility] Neutrophil pct 57.2 % [facility] Comment: Interpretive Data Percent cell count reference ranges are not reported, since discordance with absolute values may lead to misinterpretation of CBC data. Current Interpretive Data was last revised on 2017. Imm gran pct 0.2 % [facility] Comment: Interpretive Data Percent cell count reference ranges are not reported, since discordance with absolute values may lead to misinterpretation of CBC data. Current Interpretive Data was last revised on 2017. Lymphocyte pct 30.6 % [facility] Comment: Interpretive Data Percent cell count reference ranges are not reported, since discordance with absolute values may lead to misinterpretation of CBC data. Current Interpretive Data was last revised on 2017. Monocyte pct 8.8 % [facility] [facility] Comment: Interpretive Data Percent cell count reference ranges are not reported, since discordance with absolute values may lead to misinterpretation of CBC data. Current Interpretive Data was last revised on 2017. Eosinophil pct 2.2 % [facility] Comment: Interpretive Data Percent cell count reference ranges are not reported, since discordance with absolute values may lead to misinterpretation of CBC data. Current Interpretive Data was last revised on 2017. Basophil pct 1.0 % [facility] Comment: Interpretive Data Percent cell count reference ranges are not reported, since discordance with absolute values may lead to misinterpretation of CBC data. Current Interpretive Data was last revised on 2017. Blood 09/21/2024 4:31 AM ARCHIVAL RECORDS CLERK 09/21/2024 5:11 AM ARCHIVAL RECORDS CLERK Galo Smith MD LAB BLOOD ORDERABLES Fi nal Result Performing Organization Address [facility] Co de Phone Number [address] [place] [address] * (ABNORMAL) CBC with auto differential (09/21/2024 4:31 AM ARCHIVAL RECORDS CLERK) WBC 4.9 3.8 - 9.9 K/cumm Hgb 14.1 11.9 - 15.5 g/dL [facility] Hct 44.0 35.6 - 45.5 % [facility] Plt 163 150 - 400 K/cumm [facility] MPV 10.0 9.1 - 12.3 fL [facility] RBC 4.76 3.90 - 5.20 M/cumm [facility] MCV 92.4 81.3 - 96.4 fL [facility] MCH 29.6 27.1 - 33.3 pg [facility] MCHC 32.0(L) 32.3 - 35.7 g/dL [facility] RDW CV 14.6 11.1 - 14.9 % [facility] RDW SD 49.9(H) 35.7 - 48.1 fL [facility] NRBC abs 0.00 0.00 - 0.01 K/cumm [facility] Blood 09/21/2024 4:31 AM ARCHIVAL RECORDS CLERK 09/21/2024 5:11 AM ARCHIVAL RECORDS CLERK Galo Smith MD LAB BLOOD ORDERABLES Fi nal Result Performing Organization Address City/[facility]/ZIP Co de Phone Number [address] [place] [address] * Magnesium (09/21/2024 4:31 AM ARCHIVAL RECORDS CLERK) Pathologist [facility] Magnesium 2.5 1.4 - 2.5 mg/dL Blood 09/21/2024 4:31 AM ARCHIVAL RECORDS CLERK 09/21/2024 5:12 AM ARCHIVAL RECORDS CLERK Galo Smith MD LAB BLOOD ORDERABLES Fi nal Result Performing Organization Address [facility] de Phone Number YAW [address] [place] [address] [place] [address] * (ABNORMAL) Hepatic function panel (09/21/2024 4:31 AM ARCHIVAL RECORDS CLERK) [facility] Bilirubin, total 0.2 0.1 - 1.2 mg/dL Bilirubin, direct 0.1 0.1 - 0.3 mg/dL [facility] Protein, pl 7.8 6.5 - 8.5 g/dL [facility] Albumin 4.0 3.5 - 5.0 g/dL [facility] Alk phos 143(H) 40 - 130 Units/L [facility] ALT 11 7 - 45 Units/L [facility] AST 25 10 - 45 Units/L [facility] Blood 09/21/2024 4:31 AM ARCHIVAL RECORDS CLERK 09/21/2024 5:12 AM ARCHIVAL RECORDS CLERK Galo Smith MD LAB BLOOD ORDERABLES Fi nal Result Performing Organization Address [facility] de Phone Number YAW [address] [place] [address] * (ABNORMAL) Basic metabolic panel (09/21/2024 4:31 AM ARCHIVAL RECORDS CLERK) [facility] Sodium 136 135 - 145 mmol/L Potassium, pl 4.2 3.3 - 4.9 mmol/L [facility] Chloride 94(L) 97 - 110 mmol/L [facility] CO2 27 22 - 32 mmol/L [facility] Anion gap 15 2 - 15 mmol/L [facility] BUN 33(H) 6 - 25 mg/dL [facility] Creatinine 5.15(H) 0.60 - 1.10 mg/dL [facility] Glucose 155 70 - 199 mg/dL [facility] Comment: Interpretive Data Fasting glucose >/= 126 [...] 2022. Calcium 8.8 8.5 - 10.3 mg/dL [facility] Blood 09/21/2024 4:31 AM ARCHIVAL RECORDS CLERK 09/21/2024 5:12 AM ARCHIVAL RECORDS CLERK Galo Smith MD LAB BLOOD ORDERABLES Fi nal Result Performing Organization Address [facility] Co de Phone Number [address] [place] [address] * POCT glucose (09/20/2024 8:07 PM ARCHIVAL RECORDS CLERK) Glucose, POC 105 70 - 199 mg/dL Glucose comment 1 Use This Result [facility] Glucose comment 2 RN/MD Notified [facility] Blood 09/20/2024 8:07 PM ARCHIVAL RECORDS CLERK 09/20/2024 8:07 PM ARCHIVAL RECORDS CLERK Result [facility] Glao Smith MD LAB POCT ORDERABLES - D EVICE Final Result Performing Organization Address [facility] Co de Phone Number [address] [place] [address] * POCT glucose (09/20/2024 4:37 PM ARCHIVAL RECORDS CLERK) Glucose, POC 101 70 - 199 mg/dL Glucose comment 1 Use This Result [facility] Glucose comment 2 RN/MD Notified [facility] Blood 09/20/2024 4:37 PM ARCHIVAL RECORDS CLERK 09/20/2024 4:37 PM ARCHIVAL RECORDS CLERK Galo Smith MD LAB POCT ORDERABLES - D EVICE Final Result Performing Organization Address City/[facility] Co de Phone Number [address] [place] [address] * CT Head WO Contrast (09/20/2024 1:57 PM ARCHIVAL RECORDS CLERK) Anatomical Region Laterality Modality Head and Neck N/A Computed Tomogra phy 09/20/2024 2:29 PM ARCHIVAL RECORDS CLERK Narrative 09/20/2024 2:34 PM ARCHIVAL RECORDS CLERK EXAM DESCRIPTION: CT HEAD WO CONTRAST REASON [...] Carmen Castellon M.D. AT T: Report ID: [id number] Reading Location: [id number] Procedure Note Carmen Castellon MD - 09/20/2024 [...] Carmen Castellon M.D. AT T: Report ID: [id number] Reading Location: [place] [address] Galo Smith MD IMG CT PROCEDURES Final Result * POCT glucose (09/20/2024 1:10 PM ARCHIVAL RECORDS CLERK) [facility] Glucose, POC 97 70 - 199 mg/dL Blood 09/20/2024 1:10 PM ARCHIVAL RECORDS CLERK 09/20/2024 1:10 PM ARCHIVAL RECORDS CLERK Galo Smith MD LAB POCT ORDERABLES - D EVICE Final Result Performing Organization Address City/[facility] Co de Phone Number [place] [id number] [facility] [place] [address] * POCT glucose (09/20/2024 8:20 AM ARCHIVAL RECORDS CLERK) [facility] Glucose, POC 159 70 - 199 mg/dL Glucose comment 1 Use This Result [facility] Glucose comment 2 RN/MD Notified [facility] Blood 09/20/2024 8:20 AM ARCHIVAL RECORDS CLERK 09/20/2024 8:20 AM ARCHIVAL RECORDS CLERK Galo Smith MD LAB POCT ORDERABLES - D EVICE Final Result Performing Organization Address City/[facility] Co de Phone Number [address] [place] [address] * (ABNORMAL) eGFR (09/20/2024 6:29 AM ARCHIVAL RECORDS CLERK) [facility] eGFR 7(L) >=60 mL/min/1. 73 m2 Comment: [...] last reviewed 2021. Blood 09/20/2024 6:29 AM ARCHIVAL RECORDS CLERK 09/20/2024 7:32 AM ARCHIVAL RECORDS CLERK us Galo Smith MD LAB BLOOD ORDERABLES nal Result [facility] [address] [facility] [place] [address] * Differential, auto (09/20/2024 6:29 AM ARCHIVAL RECORDS CLERK) Pathologist [facility] Neutrophil abs 4.3 1.5 - 6.5 K/cumm Imm gran abs 0.0 0.0 - 0.1 K/cumm [facility] Lymphocyte abs 1.2 0.8 - 3.3 K/cumm [facility] Monocyte abs 0.4 0.2 - 0.8 K/cumm [facility] Eosinophil abs 0.1 0.0 - 0.5 K/cumm [facility] Basophil abs 0.1 0.0 - 0.1 K/cumm [facility] Neutrophil pct 70.8 % [facility] Comment: Interpretive Data Percent cell count reference ranges are not reported, since discordance with absolute values may lead to misinterpretation of CBC data. Current Interpretive Data was last revised on 2017. Imm gran pct 0.3 % [facility] Comment: Interpretive Data Percent cell count reference ranges are not reported, since discordance with absolute values may lead to misinterpretation of CBC data. Current Interpretive Data was last revised on 2017. Lymphocyte pct 19.7 % [facility] Comment: Interpretive Data Percent cell count reference ranges are not reported, since discordance with absolute values may lead to misinterpretation of CBC data. Current Interpretive Data was last revised on 2017. Monocyte pct 6.9 % [facility] Comment: Interpretive Data Percent cell count reference ranges are not reported, since discordance with absolute values may lead to misinterpretation of CBC data. Current Interpretive Data was last revised on 2017. Eosinophil pct 1.5 % [facility] Comment: Interpretive Data Percent cell count reference ranges are not reported, since discordance with absolute values may lead to misinterpretation of CBC data. Current Interpretive Data was last revised on 2017. Basophil pct 0.8 % [facility] Comment: Interpretive Data Percent cell count reference ranges are not reported, since discordance with absolute values may lead to misinterpretation of CBC data. Current Interpretive Data was last revised on 2017. Blood 09/20/2024 6:29 AM ARCHIVAL RECORDS CLERK 09/20/2024 7:32 AM ARCHIVAL RECORDS CLERK Galo Smith MD LAB BLOOD ORDERABLES Fi nal Result [facility] [address] [facility] Department [place] [address] * (ABNORMAL) CBC with auto differential (09/20/2024 6:29 AM ARCHIVAL RECORDS CLERK) WBC 6.1 3.8 - 9.9 K/cumm Hgb 13.3 11.9 - 15.5 g/dL [facility] Hct 41.0 35.6 - 45.5 % [facility] Plt 187 150 - 400 K/cumm [facility] MPV 10.9 9.1 - 12.3 fL [facility] RBC 4.43 3.90 - 5.20 M/cumm [facility] MCV 92.6 81.3 - 96.4 fL [facility] MCH 30.0 27.1 - 33.3 pg [facility] MCHC 32.4 32.3 - 35.7 g/dL [facility] RDW CV 14.6 11.1 - 14.9 % [facility] RDW SD 49.1(H) 35.7 - 48.1 fL [facility] NRBC abs 0.00 0.00 - 0.01 K/cumm [facility] Blood 09/20/2024 6:29 AM ARCHIVAL RECORDS CLERK 09/20/2024 7:32 AM ARCHIVAL RECORDS CLERK Galo Smith MD LAB BLOOD ORDERABLES Fi nal Result [address] [place] [address] * Magnesium (09/20/2024 6:29 AM ARCHIVAL RECORDS CLERK) Magnesium 2.4 1.4 - 2.5 mg/dL Blood 09/20/2024 6:29 AM ARCHIVAL RECORDS CLERK 09/20/2024 7:32 AM ARCHIVAL RECORDS CLERK Galo Smith MD LAB BLOOD ORDERABLES Fi nal Result Performing Organization Address City/[facility]/ZIP Co de Phone Number [address] [place] [address] * Lipase (09/20/2024 6:29 AM ARCHIVAL RECORDS CLERK) Pathologist [facility] Lipase 56 10 - 99 Units/L Blood 09/20/2024 6:29 AM ARCHIVAL RECORDS CLERK 09/20/2024 7:32 AM ARCHIVAL RECORDS CLERK Galo Smith MD LAB BLOOD ORDERABLES Fi nal Result Performing Organization Address City/[facility]/ZIP Co de Phone Number [address] [place] [address] * (ABNORMAL) Hepatic function panel (09/20/2024 6:29 AM ARCHIVAL RECORDS CLERK) Pathologist [facility] Bilirubin, total 0.3 0.1 - 1.2 mg/dL Bilirubin, direct 0.1 0.1 - 0.3 mg/dL [facility] Protein, pl 7.8 6.5 - 8.5 g/dL [facility] Albumin 4.2 3.5 - 5.0 g/dL [facility] Alk phos 145(H) 40 - 130 Units/L [facility] ALT 15 7 - 45 Units/L [facility] AST 24 10 - 45 Units/L [facility] Blood 09/20/2024 6:29 AM ARCHIVAL RECORDS CLERK 09/20/2024 7:32 AM ARCHIVAL RECORDS CLERK us Galo Smith MD LAB BLOOD ORDERABLES Fi nal Result [facility] [address] [facility] Department [place] [address] * (ABNORMAL) Basic metabolic panel (09/20/2024 6:29 AM ARCHIVAL RECORDS CLERK) [facility] Sodium 136 135 - 145 mmol/L Potassium, pl 4.4 3.3 - 4.9 mmol/L [facility] Chloride 92(L) 97 - 110 mmol/L [facility] CO2 29 22 - 32 mmol/L [facility] Anion gap 15 2 - 15 mmol/L [facility] BUN 67(H) 6 - 25 mg/dL [facility] Creatinine 6.77(H) 0.60 - 1.10 mg/dL [facility] Glucose 194 70 - 199 mg/dL [facility] Comment: Interpretive Data Fasting glucose >/= 126 [...] 2022. Calcium 8.7 8.5 - 10.3 mg/dL [facility] Blood 09/20/2024 6:29 AM ARCHIVAL RECORDS CLERK 09/20/2024 7:32 AM ARCHIVAL RECORDS CLERK Galo Smith MD LAB BLOOD ORDERABLES Fi nal Result Performing Organization Address City/[facility]/ZIP Co de Phone Number YAW [address] [place] [address] * POCT glucose (09/20/2024 6:19 AM ARCHIVAL RECORDS CLERK) Glucose, POC 196 70 - 199 mg/dL Glucose comment 1 Use This Result [facility] Glucose comment 2 RN/MD Notified [facility] Blood 09/20/2024 6:19 AM ARCHIVAL RECORDS CLERK 09/20/2024 6:19 AM ARCHIVAL RECORDS CLERK Galo Smith MD LAB POCT ORDERABLES - D EVICE Final Result Performing Organization Address [facility] Co de Phone Number PEMA[address] [place] [address] * POCT glucose (09/19/2024 8:26 PM ARCHIVAL RECORDS CLERK) Glucose, POC 149 70 - 199 mg/dL Glucose comment 1 Use This Result [facility] Glucose comment 2 RN/MD Notified YAW Blood 09/19/2024 8:26 PM ARCHIVAL RECORDS CLERK 09/19/2024 8:26 PM ARCHIVAL RECORDS CLERK Galo Smith MD LAB POCT ORDERABLES - D EVICE Final Result Performing Organization Address City/[facility]/ZIP Co de Phone Number [address] [place] [address] * POCT glucose (09/19/2024 4:43 PM ARCHIVAL RECORDS CLERK) Glucose, POC 177 70 - 199 mg/dL Blood 09/19/2024 4:43 PM ARCHIVAL RECORDS CLERK 09/19/2024 4:43 PM ARCHIVAL RECORDS CLERK us Galo Smith MD LAB POCT ORDERABLES - D EVICE Final Result YAW [address] [facility] Department [place] [address] * CT Abdomen Pelvis WO Contrast (09/19/2024 1:08 PM ARCHIVAL RECORDS CLERK) Anatomical Region Laterality Modality Body N/A Computed Tomogra phy 09/19/2024 1:14 PM ARCHIVAL RECORDS CLERK Narrative 09/19/2024 1:18 PM ARCHIVAL RECORDS CLERK EXAM DESCRIPTION: CT ABDOMEN PELVIS WO CONTRAST [...] definite evidence of diverticulitis. There is a rqro-ca-rzxakcdt amount of retained fecal debris in the [...] mild enteritis of infectious or inflammatory etiology. Iaov-sw-srcbmxpp amount of retained fecal debris in the colon, which raises the concern for constipation. Scattered colonic diverticula without definite evidence of diverticulitis. Normal appendix. THIS IS AN ELECTRONICALLY VERIFIED FINAL REPORT 09/19/2024 1:18 PM - Electronically signed by Romi SHEPPARD T: Report ID: [id number] Reading Location: [id number] Procedure Note Romi Lewis, DO - 09/19/2024 [...] definite evidence of diverticulitis. There is a ezpd-ve-jufcbtut amount of retained fecal debris in the [...] versus mild enteritis of infectious or inflammatoryetiology. Krma-ta-qivcjhxv amount of retained fecal debris in the colon, whichraises the concern for constipation. Scattered colonic diverticula without definite evidence ofdiverticulitis. Normal appendix. THIS IS AN ELECTRONICALLY VERIFIED FINAL REPORT 09/19/2024 1:18 PM - Electronically signed by Romi Lewis D.O. PS T: Report ID: [id number] Reading Location: [place] [address] Galo mSith MD IMG CT PROCEDURES Final Result * POCT glucose (09/19/2024 11:26 AM ARCHIVAL RECORDS CLERK) Glucose, POC 100 70 - 199 mg/dL Blood 09/19/2024 11:2 6 AM ARCHIVAL RECORDS CLERK 09/19/2024 11:26 AM ARCHIVAL RECORDS CLERK Galo Smith MD LAB POCT ORDERABLES - D EVICE Final Result [facility] [address] [facility] Department [place] [address] * (ABNORMAL) hCG, blood, quantitative (09/19/2024 10:48 AM ARCHIVAL RECORDS CLERK) hCG, quant 6.0(H) 0.0 - 5.0 IUnits/L Comment: Interpretive Data Male: < 5 IU/L Non- premenopausal Female: <5 IU/L The [employer] hCG Beta Quant assay procedure was used. Results from different manufacturers or methods may not be comparable. Serial testing should be performed using the same method. Interpretive Data was last revised on 2023 Blood 09/19/2024 10:4 8 AM ARCHIVAL RECORDS CLERK 09/19/2024 10:51 AM ARCHIVAL RECORDS CLERK Galo Smith MD LAB BLOOD ORDERABLES Fi nal Result YAW [address] [place] [address] * POCT glucose (09/19/2024 8:28 AM ARCHIVAL RECORDS CLERK) Glucose, POC 87 70 - 199 mg/dL Blood 09/19/2024 8:28 AM ARCHIVAL RECORDS CLERK 09/19/2024 8:28 AM ARCHIVAL RECORDS CLERK Galo Smith MD LAB POCT ORDERABLES - D EVICE Final Result Performing Organization Address [facility] Co de Phone Number YAW [address] [address] * (ABNORMAL) eGFR (09/19/2024 6:44 AM ARCHIVAL RECORDS CLERK) [facility] eGFR 10(L) >=60 mL/min/1. 73 m2 Comment: [...] last reviewed 2021. Blood 09/19/2024 6:44 AM ARCHIVAL RECORDS CLERK 09/19/2024 7:07 AM ARCHIVAL RECORDS CLERK us Rory Harper MD LAB BLOOD ORDERABLES Fin al Result YAW [address] [facility] Department [place] [address] * Differential, auto (09/19/2024 6:44 AM ARCHIVAL RECORDS CLERK) Neutrophil abs 3.7 1.5 - 6.5 K/cumm Imm gran abs 0.0 0.0 - 0.1 K/cumm [facility] Lymphocyte abs 1.1 0.8 - 3.3 K/cumm [facility] Monocyte abs 0.4 0.2 - 0.8 K/cumm [facility] Eosinophil abs 0.1 0.0 - 0.5 K/cumm [facility] Basophil abs 0.0 0.0 - 0.1 K/cumm [facility] Neutrophil pct 69.4 % [facility] Comment: Interpretive Data Percent cell count reference ranges are not reported, since discordance with absolute values may lead to misinterpretation of CBC data. Current Interpretive Data was last revised on 2017. Imm gran pct 0.2 % [facility] Comment: Interpretive Data Percent cell count reference ranges are not reported, since discordance with absolute values may lead to misinterpretation of CBC data. Current Interpretive Data was last revised on 2017. Lymphocyte pct 20.5 % [facility] Comment: Interpretive Data Percent cell count reference ranges are not reported, since discordance with absolute values may lead to misinterpretation of CBC data. Current Interpretive Data was last revised on 2017. Monocyte pct 7.4 % [facility] Comment: Interpretive Data Percent cell count reference ranges are not reported, since discordance with absolute values may lead to misinterpretation of CBC data. Current Interpretive Data was last revised on 2017. Eosinophil pct 1.7 % [facility] Comment: Interpretive Data Percent cell count reference ranges are not reported, since discordance with absolute values may lead to misinterpretation of CBC data. Current Interpretive Data was last revised on 2017. Basophil pct 0.8 % [facility] Comment: Interpretive Data Percent cell count reference ranges are not reported, since discordance with absolute values may lead to misinterpretation of CBC data. Current Interpretive Data was last revised on 2017. Blood 09/19/2024 6:44 AM ARCHIVAL RECORDS CLERK 09/19/2024 7:07 AM ARCHIVAL RECORDS CLERK Rory Harper MD LAB BLOOD ORDERABLES Fin al Result Performing Organization Address [facility] Co de Phone Number [address] [place] [address] * (ABNORMAL) CBC with auto differential (09/19/2024 6:44 AM ARCHIVAL RECORDS CLERK) Pathologist [facility] WBC 5.3 3.8 - 9.9 K/cumm Hgb 13.1 11.9 - 15.5 g/dL [facility] Hct 40.4 35.6 - 45.5 % [facility] Plt 171 150 - 400 K/cumm [facility] MPV 10.9 9.1 - 12.3 fL [facility] RBC 4.42 3.90 - 5.20 M/cumm [facility] MCV 91.4 81.3 - 96.4 fL [facility] MCH 29.6 27.1 - 33.3 pg [facility] MCHC 32.4 32.3 - 35.7 g/dL [facility] RDW CV 14.7 11.1 - 14.9 % [facility] RDW SD 49.4(H) 35.7 - 48.1 fL [facility] NRBC abs 0.00 0.00 - 0.01 K/cumm [facility] Blood 09/19/2024 6:44 AM ARCHIVAL RECORDS CLERK 09/19/2024 7:07 AM ARCHIVAL RECORDS CLERK Rory Harper MD LAB BLOOD ORDERABLES Fin al Result Performing Organization Address [facility] Co de Phone Number [id number] [place] [address] * (ABNORMAL) Phosphorus (09/19/2024 6:44 AM ARCHIVAL RECORDS CLERK) Pathologist [facility] Phosphorus, pl 6.0(H) 2.3 - 4.5 mg/dL Blood 09/19/2024 6:44 AM ARCHIVAL RECORDS CLERK 09/19/2024 7:07 AM ARCHIVAL RECORDS CLERK Rory Harper MD LAB BLOOD ORDERABLES Fin al Result Performing Organization Address City/[facility] Co de Phone Number [address] [address] * Magnesium (09/19/2024 6:44 AM ARCHIVAL RECORDS CLERK) Pathologist [facility] Magnesium 2.3 1.4 - 2.5 mg/dL Blood 09/19/2024 6:44 AM ARCHIVAL RECORDS CLERK 09/19/2024 7:07 AM ARCHIVAL RECORDS CLERK Rory Harper MD LAB BLOOD ORDERABLES Fin al Result Performing Organization Address [facility] de Phone Number [address] [address] * (ABNORMAL) Comprehensive metabolic panel (09/19/2024 6:44 AM ARCHIVAL RECORDS CLERK) Pathologist [facility] Sodium 138 135 - 145 mmol/L Potassium, pl 5.0(H) 3.3 - 4.9 mmol/L [facility] Chloride 96(L) 97 - 110 mmol/L [facility] CO2 29 22 - 32 mmol/L [facility] Anion gap 13 2 - 15 mmol/L [facility] BUN 42(H) 6 - 25 mg/dL [facility] Creatinine 5.01(H) 0.60 - 1.10 mg/dL [facility] Glucose 95 70 - 199 mg/dL [facility] [facility] Comment: Interpretive Data Fasting glucose >/= 126 [...] 2022. Calcium 8.6 8.5 - 10.3 mg/dL [facility] Bilirubin, total 0.4 0.1 - 1.2 mg/dL [facility] Protein, pl 7.2 6.5 - 8.5 g/dL [facility] Albumin 3.8 3.5 - 5.0 g/dL [facility] Alk phos 138(H) 40 - 130 Units/L [facility] ALT 15 7 - 45 Units/L [facility] AST 24 10 - 45 Units/L [facility] Blood 09/19/2024 6:44 AM ARCHIVAL RECORDS CLERK 09/19/2024 7:07 AM ARCHIVAL RECORDS CLERK Rory Harper MD LAB BLOOD ORDERABLES Fin al Result Performing Organization Address [facility] Co de Phone Number YAW [address] [place] [address] * POCT glucose (09/18/2024 7:37 PM ARCHIVAL RECORDS CLERK) Glucose, POC 153 70 - 199 mg/dL Glucose comment 1 Use This Result [facility] Blood 09/18/2024 7:37 PM ARCHIVAL RECORDS CLERK 09/18/2024 7:37 PM ARCHIVAL RECORDS CLERK Rory Harper MD LAB POCT ORDERABLES - DE VICE Final Result Performing Organization Address [facility] Co co Phone Number [address] [email or web address] [address] * US Kidney Complete (09/18/2024 7:21 PM ARCHIVAL RECORDS CLERK) Anatomical Region Laterality Modality Kidney N/A Ultrasound 09/18/2024 9:32 PM ARCHIVAL RECORDS CLERK Narrative 09/18/2024 9:33 PM ARCHIVAL RECORDS CLERK EXAM DESCRIPTION: US KIDNEY COMPLETE REASON FOR [...] Chase Cervantes M.D. AR T: Report ID: [id number] Reading Location: [place] [address] Procedure Note Chase Cervantes MD - 09/18/2024 [...] Chase Cervantes M.D. AR T: Report ID: [id number] Reading Location: [place] [address] us Eduarda Batista NP IMG US PROCEDURES Final Resu lt * (ABNORMAL) BUN (09/18/2024 6:45 PM ARCHIVAL RECORDS CLERK) BUN 30(H) 6 - 25 mg/dL Blood 09/18/2024 6:45 PM ARCHIVAL RECORDS CLERK 09/18/2024 6:59 PM ARCHIVAL RECORDS CLERK Narrative CERNER - 09/18/2024 7:25 PM ARCHIVAL RECORDS CLERK Pre-Dialysis Amrik Mata MD LAB BLOOD ORDERABLES Final Resu lt Performing Organization Address [facility]/ZIP Co de Phone Number [address] [place] [address] * Potassium (09/18/2024 6:45 PM ARCHIVAL RECORDS CLERK) Potassium, pl 3.9 3.3 - 4.9 mmol/L Blood 09/18/2024 6:45 PM ARCHIVAL RECORDS CLERK 09/18/2024 6:59 PM ARCHIVAL RECORDS CLERK Eduarda Batista RN PROVIDER RELATIONS LAB BLOOD ORDERABLES Final R esult Performing Organization Address [facility] Co de Phone Number [address] [place] [address] * POCT glucose (09/18/2024 5:58 PM ARCHIVAL RECORDS CLERK) Glucose, POC 86 70 - 199 mg/dL Glucose comment 1 Use This Result [facility] Glucose comment 2 RN/MD Notified [facility] Blood 09/18/2024 5:58 PM ARCHIVAL RECORDS CLERK 09/18/2024 5:58 PM ARCHIVAL RECORDS CLERK Result [facility] Rory Harper MD LAB POCT ORDERABLES - DE VICE Final Result Performing Organization Address [facility] Co de Phone Number [address] [place] [address] * (ABNORMAL) Potassium (09/18/2024 2:00 PM ARCHIVAL RECORDS CLERK) Potassium, pl 5.0(H) 3.3 - 4.9 mmol/L Blood 09/18/2024 2:00 PM ARCHIVAL RECORDS CLERK 09/18/2024 2:56 PM ARCHIVAL RECORDS CLERK Result [facility] Amrik Mata MD LAB BLOOD ORDERABLES Final Resu lt Performing Organization Address [facility]/ZIP Co de Phone Number [address] [place] [address] * POCT glucose (09/18/2024 1:28 PM ARCHIVAL RECORDS CLERK) Glucose, POC 129 70 - 199 mg/dL Glucose comment 1 Use This Result [facility] Blood 09/18/2024 1:28 PM ARCHIVAL RECORDS CLERK 09/18/2024 1:28 PM ARCHIVAL RECORDS CLERK Pablo Gallego MD LAB POCT ORDERABLES - DEVICE Final Result Performing Organization Address [facility] de Phone Number [address] [address] * POCT glucose (09/18/2024 11:58 AM ARCHIVAL RECORDS CLERK) Glucose, POC 144 70 - 199 mg/dL Glucose comment 1 Use This Result [facility] Glucose comment 2 RN/MD Notified [facility] Blood 09/18/2024 11:5 8 AM ARCHIVAL RECORDS CLERK 09/18/2024 11:58 AM ARCHIVAL RECORDS CLERK Pablo Gallego MD LAB POCT ORDERABLES - DEVICE Final Result Performing Organization Address [facility] de Phone Number [address] [address] * (ABNORMAL) Urinalysis reflex to microscopic and culture Urine (09/18/2024 10:15 AM ARCHIVAL RECORDS CLERK) [facility] Color, ur Other(A) Yellow Clarity, ur Turbid(A) Clear [facility] Specific gravity, ur 1.017 1.003 - 1.030 [facility] pH, urine 7.0 [facility] Comment: Interpretive Data U rine pH is affected by diet, medications, systemic acid-base disturbances, and renal tubular function. pH may affect urinary stone formation. For example, urine pH below 6.0 may help reduce the tendency for calcium phosphate stones and pH greater than 6.0 may reduce the tendency for uric acid stone formation. Source: [facility] e[employer] Current Interpretive Data was last revised on 2017 Protein, ur ql 3+(A) Negative [facility] Glucose, ur ql 1+(A) Negative [facility] Ketones, ur Negative Negative [facility] Bilirubin, ur Negative Negative [facility] Blood, ur 2+(A) Negative [facility] Urobilinogen, ur <2.0 <2.0 mg/dL [facility] Nitrite, ur Negative Negative [facility] Leukocyte esterase, ur 4+(A) Negative [facility] UA reflex comment Reflex to microscopic UA will be performed. [facility] Urine 09/18/2024 10:1 5 AM ARCHIVAL RECORDS CLERK 09/18/2024 10:24 AM ARCHIVAL RECORDS CLERK Pablo Gallego MD LAB MICROBIOLOGY - GENERAL ORDERABLES Final Result Performing Organization Address [facility] Co de Phone Number [facility] [address] [place] [address] * (ABNORMAL) Urinalysis, microscopic only (09/18/2024 10:15 AM ARCHIVAL RECORDS CLERK) WBC, ur >50(A) 0 - 5 /HPF RBC, ur 21-50(A) 0 - 2 /HPF [facility] Epithelial cells, squamous, ur 1-5 0 - 5 /HPF [facility] Bacteria, ur 4+(A) [facility] Yeast, ur 4+(A) [facility] Culture Reflex Comment Reflex to urine culture will be performed. [facility] Urine 09/18/2024 10:1 5 AM ARCHIVAL RECORDS CLERK 09/18/2024 10:24 AM ARCHIVAL RECORDS CLERK Pablo Gallego MD LAB URINE ORDERABLE S Final Result Performing Organization Address [facility] de Phone Number [address] [email or web address] [address] * (ABNORMAL) Urine culture Urine (09/18/2024 10:15 AM ARCHIVAL RECORDS CLERK) Report Final Report: Greater than or equal to 100,000 colonies/mL of Klebsiella pneumoniae Greater than or equal to 100,000 colonies/mL of Klebsiella pneumoniae #2 (.) Comment:Testing performed by : [facility], [address], [place]., [address] Organism KLEBSIELLA PNEUMONIAE YAW Organism KLEBSIELLA PNEUMONIAE YAW Urine 09/18/2024 10:1 5 AM ARCHIVAL RECORDS CLERK 09/18/2024 1:55 PM ARCHIVAL RECORDS CLERK Narrative YAW - 09/21/2024 10:23 AM ARCHIVAL RECORDS CLERK Urine culture reflexed based upon urinalysis results. Testing performed by [facility] Microbiology Laboratory ([phone]) Organism Antibiotic Method Susceptibility Klebsiella pneumoniae Ampicillin [...] LAB MICROBIOLOGY - GENERAL ORDERABLES Final Result [facility] [address] [facility] Department [place] [address] * (ABNORMAL) POC Blood Gas and Chemistries, Venous - (09/18/2024 10:12 AM ARCHIVAL RECORDS CLERK) Oxy Hgb, ruby POC 80.5(L) 90.0 - 95.0 % Hemoglobin, ruby POC 13.4 11.9 - 15.5 g/dL [facility] Sodium, ruby POC 136 135 - 145 mmol/L [facility] Potassium, ruby POC 5.6(H) 3.3 - 4.9 mmol/L [facility] Comment: Interpretive Data This method is not able to assess for hemolysis, which may falsely increase potassium concentrations. If further testing is needed to evaluate this result, consider in-laboratory plasma potassium. Current Interpretive Data was last revised on 2022. Glucose, ruby POC 167 70 - 199 mg/dL [facility] Ionized Calcium, ruby POC 3.82(L) 4.50 - 5.10 mg/dL [facility] Lactate, ruby POC 0.7 0.7 - 2.0 mmol/L [facility] Blood 09/18/2024 10:1 2 AM ARCHIVAL RECORDS CLERK 09/18/2024 10:12 AM ARCHIVAL RECORDS CLERK Pablo Gallego MD LAB POCT ORDERABLES - DEVICE Final Result Performing Organization Address City/[facility]/ZIP Co de Phone Number [facility] [address] [facility] Department [place] [address] * ECG 12 lead (09/18/2024 9:44 AM ARCHIVAL RECORDS CLERK) Pathologist [facility] Ventricular Rate EKG/Min 77 BPM [facility] Atrial Rate [address] [facility] PA-Interval (MSEC) [address] [facility] QRS-Interval (MSEC) [address] [facility] QT-Interval (MSEC) [address] [facility] QTc [address] [facility] P [place] [address] [facility] R [place] -[address] [facility] T [place] [address] [facility] Diagnosis Normal sinus rhythm Possible Left atrial enlargement Borderline ECG When compared with ECG of 11-SEP-2024 08:19, No significant change was found Confirmed by GUANACO ROBERTS M.D. ([id number]) on 09/18/2024 11:23:35 AM [facility] 09/18/2024 9:44 AM ARCHIVAL RECORDS CLERK 09/18/2024 11:23 AM ARCHIVAL RECORDS CLERK Pablo Gallego MD ECG ORDERABLES Fin al Result Performing Organization Address City/[facility]/ZIP Co de Phone Number [facility] * (ABNORMAL) eGFR (09/18/2024 9:38 AM ARCHIVAL RECORDS CLERK) Pathologist [facility] eGFR 6(L) >=60 mL/min/1. 73 m2 Comment: [...] last reviewed 2021. Blood 09/18/2024 9:38 AM ARCHIVAL RECORDS CLERK 09/18/2024 9:41 AM ARCHIVAL RECORDS CLERK Raquel GRAVES LAB BLOOD ORDERABLES Final Result YAW [address] [facility] Department [place] [address] * (ABNORMAL) Differential, auto (09/18/2024 9:38 AM ARCHIVAL RECORDS CLERK) [facility] Neutrophil abs 6.8(H) 1.5 - 6.5 K/cumm Imm gran abs 0.0 0.0 - 0.1 K/cumm [facility] Lymphocyte abs 1.0 0.8 - 3.3 K/cumm [facility] Monocyte abs 0.4 0.2 - 0.8 K/cumm [facility] Eosinophil abs 0.1 0.0 - 0.5 K/cumm [facility] Basophil abs 0.1 0.0 - 0.1 K/cumm [facility] Neutrophil pct 81.6 % [facility] Comment: Interpretive Data Percent cell count reference ranges are not reported, since discordance with absolute values may lead to misinterpretation of CBC data. Current Interpretive Data was last revised on 2017. Imm gran pct 0.2 % [facility] Comment: Interpretive Data Percent cell count reference ranges are not reported, since discordance with absolute values may lead to misinterpretation of CBC data. Current Interpretive Data was last revised on 2017. Lymphocyte pct 11.6 % [facility] Comment: Interpretive Data Percent cell count reference ranges are not reported, since discordance with absolute values may lead to misinterpretation of CBC data. Current Interpretive Data was last revised on 2017. Monocyte pct 4.3 % [facility] Comment: Interpretive Data Percent cell count reference ranges are not reported, since discordance with absolute values may lead to misinterpretation of CBC data. Current Interpretive Data was last revised on 2017. Eosinophil pct 1.3 % [facility] Comment: Interpretive Data Percent cell count reference ranges are not reported, since discordance with absolute values may lead to misinterpretation of CBC data. Current Interpretive Data was last revised on 2017. Basophil pct 1.0 % [facility] Comment: Interpretive Data Percent cell count reference ranges are not reported, since discordance with absolute values may lead to misinterpretation of CBC data. Current Interpretive Data was last revised on 2017. Blood 09/18/2024 9:38 AM ARCHIVAL RECORDS CLERK 09/18/2024 9:42 AM ARCHIVAL RECORDS CLERK Raquel GRAVES LAB BLOOD ORDERABLES Final Result Performing Organization Address City/State/[facility] Co de Phone Number [facility] [address] [facility] Department of Laboratories [place], [place] [id number] * (ABNORMAL) CBC with auto differential (09/18/2024 9:38 AM ARCHIVAL RECORDS CLERK) WBC 8.4 3.8 - 9.9 K/cumm Hgb 13.9 11.9 - 15.5 g/dL [facility] Hct 42.9 35.6 - 45.5 % [facility] Plt 178 150 - 400 K/cumm [facility] MPV 10.9 9.1 - 12.3 fL [facility] RBC 4.66 3.90 - 5.20 M/cumm [facility] MCV 92.1 81.3 - 96.4 fL [facility] MCH 29.8 27.1 - 33.3 pg [facility] MCHC 32.4 32.3 - 35.7 g/dL [facility] RDW CV 14.7 11.1 - 14.9 % [facility] RDW SD 50.0(H) 35.7 - 48.1 fL [facility] NRBC abs 0.00 0.00 - 0.01 K/cumm [facility] Blood 09/18/2024 9:38 AM ARCHIVAL RECORDS CLERK 09/18/2024 9:42 AM ARCHIVAL RECORDS CLERK Pablo Gallego MD LAB BLOOD ORDERABLE S Final Result Performing Organization Address City/[facility] Co de Phone Number [address] [place] [address] * (ABNORMAL) Phosphorus (09/18/2024 9:38 AM ARCHIVAL RECORDS CLERK) Phosphorus, pl 6.5(H) 2.3 - 4.5 mg/dL Blood 09/18/2024 9:38 AM ARCHIVAL RECORDS CLERK 09/18/2024 9:41 AM ARCHIVAL RECORDS CLERK Result [facility] Pablo Gallego MD LAB BLOOD ORDERABLE S Final Result Performing Organization Address [facility] Co de Phone Number [address] [place] [address] * Magnesium (09/18/2024 9:38 AM ARCHIVAL RECORDS CLERK) Magnesium 2.4 1.4 - 2.5 mg/dL Blood 09/18/2024 9:38 AM ARCHIVAL RECORDS CLERK 09/18/2024 9:41 AM ARCHIVAL RECORDS CLERK Result [facility] Pablo Gallego MD LAB BLOOD ORDERABLE S Final Result Performing Organization Address City/[facility] Co de Phone Number [address] [place] [address] * (ABNORMAL) Comprehensive metabolic panel (09/18/2024 9:38 AM ARCHIVAL RECORDS CLERK) Sodium 139 135 - 145 mmol/L Potassium, pl 6.6(C) 3.3 - 4.9 mmol/L [facility] Comment:Hemolyzed; Potassium value may be falsely elevated by as much as 1.0 mmol/L. Suggest redraw and reanalysis. Critical Result called to and read back by GLORIA Bryant [email or web address], DATE: 2024-09-18 10:13:30 BY: Casey [email or web address] Chloride 99 97 - 110 mmol/L [facility] CO2 26 22 - 32 mmol/L [facility] Anion gap 14 2 - 15 mmol/L [facility] BUN 77(H) 6 - 25 mg/dL [facility] Creatinine 7.20(H) 0.60 - 1.10 mg/dL [facility] Glucose 177 70 - 199 mg/dL [facility] Comment: Interpretive Data Fasting glucose >/= 126 [...] 2022. Calcium 8.8 8.5 - 10.3 mg/dL [facility] Bilirubin, total 0.4 0.1 - 1.2 mg/dL [facility] Protein, pl 8.4 6.5 - 8.5 g/dL [facility] Albumin 4.5 3.5 - 5.0 g/dL [facility] Alk phos 156(H) 40 - 130 Units/L [facility] ALT 19 7 - 45 Units/L [facility] AST 27 10 - 45 Units/L [facility] Blood 09/18/2024 9:38 AM ARCHIVAL RECORDS CLERK 09/18/2024 9:41 AM ARCHIVAL RECORDS CLERK us Pablo Gallego MD LAB BLOOD ORDERABLE S Final Result YAW [address] [facility] Department [place] [address] * US Vein Mapping Duplex Upper Extremity Bilateral (09/16/2024 1:28 PM ARCHIVAL RECORDS CLERK) Anatomical Region Laterality Modality Vascular Bilateral Ultrasound 09/16/2024 11:0 3 AM ARCHIVAL RECORDS CLERK Narrative 09/16/2024 1:31 PM ARCHIVAL RECORDS CLERK Upper Extremity Vein Mapping Report Patient Name: JENNIFER CARTER : 1975 (49y 7m) Gender: F Study Date: 09/16/2024 11:03:15 AM [employer] Consultant: Vikki Mcdonald Provider: DON SANTOS Quality: Adequate [...] By: Don Santos MD 09/16/2024 12:38:31 PM ARCHIVAL RECORDS CLERK Procedure Note Don Santos MD - 09/16/2024 Upper Extremity Vein Mapping Report Patient Name: JENNIFER CARTER : 1975 (49y 7m) Gender: F Study Date: 09/16/2024 11:03:15 AM [employer] Consultant: Vikki Mcdonald Provider: DON SANTOS Quality: Adequate [...] By: Don Santos MD 09/16/2024 12:38:31 PM ARCHIVAL RECORDS CLERK us Don Santos MD IMG US PROCEDURES Final Re sult * (ABNORMAL) Urinalysis reflex to microscopic and culture Urine (09/11/2024 3:43 PM ARCHIVAL RECORDS CLERK) Color, ur Other(A) Yellow Clarity, ur Turbid(A) [...] tendency for uric acid stone formation. Source: [email or web address] Current Interpretive Data was last revised on 2017 Protein, ur ql 3+(A) Negative [facility] Glucose, ur ql Negative Negative [facility] Ketones, ur Negative Negative [facility] Bilirubin, ur Negative Negative [facility] Blood, ur 2+(A) Negative [facility] Urobilinogen, ur <2.0 <2.0 mg/dL [facility] Nitrite, ur Negative Negative [facility] Leukocyte esterase, ur 4+(A) Negative [facility] UA reflex comment Reflex to microscopic UA will be performed. [facility] Urine 09/11/2024 3:43 PM ARCHIVAL RECORDS CLERK 09/11/2024 3:48 PM ARCHIVAL RECORDS CLERK Jesu Chew MD LAB MICROBIOLOGY - GENERAL ORDER INOCENTE Final Result Performing Organization Address [facility] de Phone Number [address] [address] * (ABNORMAL) Urinalysis, microscopic only (09/11/2024 3:43 PM ARCHIVAL RECORDS CLERK) WBC, ur >50(A) 0 - 5 /HPF RBC, ur 11-20(A) 0 - 2 /HPF [facility] Epithelial cells, squamous, ur 6-10(A) 0 - 5 /HPF [facility] Comment:Suggestive of contam ination. Consider recollection by clean catch. Bacteria, ur 2+(A) [facility] Culture Reflex Comment Reflex to urine culture will be performed. [facility] Urine 09/11/2024 3:43 PM ARCHIVAL RECORDS CLERK 09/11/2024 3:48 PM ARCHIVAL RECORDS CLERK Jesu Chew MD LAB URINE ORDERABLES Final Resul t Performing Organization Address [facility] Co de Phone Number [address] [employer] [place], [place] [id number] * (ABNORMAL) Urine culture Urine (09/11/2024 3:43 PM ARCHIVAL RECORDS CLERK) Report Final Report: Greater than or equal to 100,000 colonies/mL of Klebsiella pneumoniae The susceptibility pattern of this Klebsiella pneumoniae indicates the possible production of an extended spectrum beta lactamase (ESBL). Patients infected with ESBL-producing organisms require contact isolation precautions. For therapeutic options for this organism, please contact infectious diseases. (.) Comment:Testing performed by : [facility], [address] [place]., [address] Organism KLEBSIELLA PNEUMONIAE YAW Urine 09/11/2024 3:43 PM ARCHIVAL RECORDS CLERK 09/11/2024 8:58 PM ARCHIVAL RECORDS CLERK Narrative YAW - 09/15/2024 3:33 PM ARCHIVAL RECORDS CLERK Urine culture reflexed based upon urinalysis results. Testing performed by [facility] Microbiology Laboratory ([phone]) Organism Antibiotic Method Susceptibility Klebsiella pneumoniae Ampicillin [...] pneumoniae Ampicillin with Sulbactam INTERP RETATION Resistant Jesu Chew MD LAB MICROBIOLOGY - GENERAL ORDER INOCENTE Final Result YAW [address] [facility] Department of Laboratories [place], [place] [id number] * POCT glucose (09/11/2024 3:12 PM ARCHIVAL RECORDS CLERK) [facility] Glucose, POC 156 70 - 199 mg/dL Glucose comment 1 Use This Result YAW Glucose comment 2 RN/MD Notified YAW Blood 09/11/2024 3:12 PM ARCHIVAL RECORDS CLERK 09/11/2024 3:12 PM ARCHIVAL RECORDS CLERK Antonio George MD LAB POCT ORDERABLES - D EVICE Final Result Performing Organization Address [facility] Co de Phone Number YAW [address] [place] [address] * Hepatitis B surface antibody (immune status) Blood (09/11/2024 10:58 AM ARCHIVAL RECORDS CLERK) HBsAb (immune status) Reactive Comment: Interpretive Data [...] HBsAb (immune status) index 101.0 mIUnits/m L YAW Blood 09/11/2024 10:5 8 AM ARCHIVAL RECORDS CLERK 09/11/2024 11:13 AM ARCHIVAL RECORDS CLERK Forrest Saucedo MD LAB MICROBIOLOGY - GENERAL OR DERABLES Final Result Performing Organization Address [facility] Co de Phone Number YAW [address] [place] [address] * Hepatitis B Surface Antigen Blood (09/11/2024 10:58 AM ARCHIVAL RECORDS CLERK) [facility] HepBsAg Nonreactive Nonreactive Blood 09/11/2024 10:5 8 AM ARCHIVAL RECORDS CLERK 09/11/2024 11:13 AM ARCHIVAL RECORDS CLERK Forrest Saucedo MD LAB MICROBIOLOGY - GENERAL OR DERABLES Final Result Performing Organization Address City/[facility] Co de Phone Number [address] [place] [address] * POCT glucose (09/11/2024 10:43 AM ARCHIVAL RECORDS CLERK) Pathologist [facility] Glucose, POC 77 70 - 199 mg/dL Glucose comment 1 Use This Result YAW Blood 09/11/2024 10:4 3 AM ARCHIVAL RECORDS CLERK 09/11/2024 10:43 AM ARCHIVAL RECORDS CLERK Jesu Chew MD LAB POCT ORDERABLES - DEVICE Fin al Result Performing Organization Address [facility] de Phone Number [id number] [address] * POCT glucose (09/11/2024 10:07 AM ARCHIVAL RECORDS CLERK) Glucose, POC 97 70 - 199 mg/dL Glucose comment 1 Use This Result [facility] Blood 09/11/2024 10:0 7 AM ARCHIVAL RECORDS CLERK 09/11/2024 10:07 AM ARCHIVAL RECORDS CLERK Jesu Chew MD LAB POCT ORDERABLES - DEVICE Fin al Result Performing Organization Address [facility] Phone Number [address] [address] * (ABNORMAL) Potassium (09/11/2024 10:05 AM ARCHIVAL RECORDS CLERK) Potassium, pl 6.0(H) 3.3 - 4.9 mmol/L Blood 09/11/2024 10:0 5 AM ARCHIVAL RECORDS CLERK 09/11/2024 10:11 AM ARCHIVAL RECORDS CLERK Jesu Chew MD LAB BLOOD ORDERABLES Final Resul t Performing Organization Address [facility] de Phone Number [address] [address] * XR Chest 1 Vw Portable (09/11/2024 9:00 AM ARCHIVAL RECORDS CLERK) Anatomical Region Laterality Modality Body, Chest N/A Computed Radiogr aphy 09/11/2024 9:13 AM ARCHIVAL RECORDS CLERK Narrative 09/11/2024 9:16 AM ARCHIVAL RECORDS CLERK EXAM DESCRIPTION: XR CHEST 1 VIEW REASON [...] 9:16 AM - Electronically signed by John Olivia M.D. NS T: Report ID: [id number] Reading Location: [id number] Procedure Note John Olivia MD - 09/11/2024 [...] 9:16 AM - Electronically signed by John Olivia M.D. NS T: Report ID: [id number] Reading Location: [id number] us Jesu Chew MD IMG XR PROCEDURES Final Result * (ABNORMAL) POC Blood Gas and Chemistries, Venous - (09/11/2024 8:35 AM ARCHIVAL RECORDS CLERK) pH,ruby POC 7.32 7.32 - 7.43 pCO2, ruby POC 51(H) 40 - 50 mmHg [facility] pO2,ruby POC 34 mmHg [facility] Comment: Interpretive Data No reference range established. Current interpretive data was last revised 2020. HCO3, ruby (Calc) POC 26 20 - 30 mmol/L [facility] Base excess, ruby POC 0 mmol/L [facility] Comment: Interpretive Data No reference range established. Current interpretive data was last revised 2020. Blood 09/11/2024 8:35 AM ARCHIVAL RECORDS CLERK 09/11/2024 8:35 AM ARCHIVAL RECORDS CLERK Jesu Chew MD LAB POCT ORDERABLES - DEVICE Fin al Result Performing Organization Address [facility] Co de Phone Number [facility] [address] [facility] Department [place] [address] * ECG 12 lead (09/11/2024 8:19 AM ARCHIVAL RECORDS CLERK) Ventricular Rate EKG/Min [address] [facility] Atrial Rate 77 BPM [facility] PA-Interval (MSEC) [address] [facility] QRS-Interval (MSEC) [address] [facility] QT-Interval (MSEC) 398 ms [facility] QTc 450 ms [facility] P [place] [address] [facility] R [place] 6 degrees [facility] T [place] 37 degrees [facility] Diagnosis Normal sinus rhythm Normal ECG When compared with ECG of 25-AUG-2024 08:51 Confirmed by GUANACO ROBERTS M.D. ([id number]) on 09/11/2024 1:31:09 PM [facility] 09/11/2024 8:19 AM ARCHIVAL RECORDS CLERK 09/11/2024 1:31 PM ARCHIVAL RECORDS CLERK us Jesu Chew MD ECG ORDERABLES Final Result Performing Organization Address [facility] Co de Phone Number [facility] * Influenza A/B, RSV, and COVID-19 PCR Nasopharyngeal (09/11/2024 8:18 AM ARCHIVAL RECORDS CLERK) Pathologist [facility] COVID-19 RNA Negative Negative Influenza A RNA Negative Negative [facility] Influenza B RNA Negative Negative [facility] RSV RNA Negative Negative [facility] Comment: Interpretive data: Testing performed by [facility]. This test is performed using the [employer] Xpert Xpress CoV-2/Flu/RSV plus assay. This is a multiplex, real-time reverse transcriptase PCR assay intended for the qualitative detection of nucleic acid from SARS-CoV-2, influenza A, influenza B, and respiratory syncytial virus. This assay has been cleared by the [place] Food and Drug administration. The performance characteristics have been verified by the [facility]. Results must be considered in the clinical context, and a negative result does not rule out infection. Interpretive Data last revised 2023 Nasopharyngeal 09/11/2024 8: 18 AM ARCHIVAL RECORDS CLERK 09/11/2024 8:22 AM ARCHIVAL RECORDS CLERK Narrative [facility] - 09/11/2024 9:01 AM ARCHIVAL RECORDS CLERK Is the Patient experiencing symptoms consistent with COVID?->Unknown us Jesu Chew MD LAB MICROBIOLOGY - GENERAL ORDER INOCENTE Final Result [facility] [address] [facility] Department [place] [address] * (ABNORMAL) eGFR (09/11/2024 8:18 AM ARCHIVAL RECORDS CLERK) [facility] eGFR 6(L) >=60 mL/min/1. 73 m2 Comment: [...] last reviewed 2021. Blood 09/11/2024 8:18 AM ARCHIVAL RECORDS CLERK 09/11/2024 8:22 AM ARCHIVAL RECORDS CLERK us Jesu Chew MD LAB BLOOD ORDERABLES Final Resul t [facility] [address] [facility] Department [place] [address] * (ABNORMAL) Differential, auto (09/11/2024 8:18 AM ARCHIVAL RECORDS CLERK) Neutrophil abs 7.3(H) 1.5 - 6.5 K/cumm Imm gran abs 0.0 0.0 - 0.1 K/cumm [facility] Lymphocyte abs 0.8 0.8 - 3.3 K/cumm [facility] Monocyte abs 0.4 0.2 - 0.8 K/cumm [facility] Eosinophil abs 0.1 0.0 - 0.5 K/cumm [facility] Basophil abs 0.1 0.0 - 0.1 K/cumm [facility] Neutrophil pct 84.4 % [facility] Comment: Interpretive Data Percent cell count reference ranges are not reported, since discordance with absolute values may lead to misinterpretation of CBC data. Current Interpretive Data was last revised on 2017. Imm gran pct 0.3 % [facility] Comment: Interpretive Data Percent cell count reference ranges are not reported, since discordance with absolute values may lead to misinterpretation of CBC data. Current Interpretive Data was last revised on 2017. Lymphocyte pct 9.0 % [facility] Comment: Interpretive Data Percent cell count reference ranges are not reported, since discordance with absolute values may lead to misinterpretation of CBC data. Current Interpretive Data was last revised on 2017. Monocyte pct 4.5 % [facility] Comment: Interpretive Data Percent cell count reference ranges are not reported, since discordance with absolute values may lead to misinterpretation of CBC data. Current Interpretive Data was last revised on 2017. Eosinophil pct 1.2 % [facility] Comment: Interpretive Data Percent cell count reference ranges are not reported, since discordance with absolute values may lead to misinterpretation of CBC data. Current Interpretive Data was last revised on 2017. Basophil pct 0.6 % [facility] Comment: Interpretive Data Percent cell count reference ranges are not reported, since discordance with absolute values may lead to misinterpretation of CBC data. Current Interpretive Data was last revised on 2017. Blood 09/11/2024 8:18 AM ARCHIVAL RECORDS CLERK 09/11/2024 8:22 AM ARCHIVAL RECORDS CLERK us Jesu Chew MD LAB BLOOD ORDERABLES Final Resul t Performing Organization Address [facility] de Phone Number [facility] [address] [facility] Department [place] [address] * (ABNORMAL) CBC with auto differential (09/11/2024 8:18 AM ARCHIVAL RECORDS CLERK) WBC 8.7 3.8 - 9.9 K/cumm Hgb 13.3 11.9 - 15.5 g/dL [facility] Hct 41.4 35.6 - 45.5 % [facility] Plt 186 150 - 400 K/cumm [facility] MPV 10.4 9.1 - 12.3 fL [facility] RBC 4.42 3.90 - 5.20 M/cumm [facility] MCV 93.7 81.3 - 96.4 fL [facility] MCH 30.1 27.1 - 33.3 pg [facility] MCHC 32.1(L) 32.3 - 35.7 g/dL [facility] RDW CV 15.4(H) 11.1 - 14.9 % [facility] RDW SD 53.1(H) 35.7 - 48.1 fL [facility] NRBC abs 0.00 0.00 - 0.01 K/cumm [facility] Blood 09/11/2024 8:18 AM ARCHIVAL RECORDS CLERK 09/11/2024 8:22 AM ARCHIVAL RECORDS CLERK us Jesu Chew MD LAB BLOOD ORDERABLES Final Resul t [facility] [address] [facility] Department [place] [address] * (ABNORMAL) Comprehensive metabolic panel (09/11/2024 8:18 AM ARCHIVAL RECORDS CLERK) Sodium 141 135 - 145 mmol/L Potassium, pl 6.7(C) 3.3 - 4.9 mmol/L [facility] Comment:Hemolyzed; Potassium value may be falsely elevated by as much as 1.0 mmol/L. Suggest redraw and reanalysis. Critical Result called to and read back by [id number], DATE: 2024-09-11 09:11:28 BY: [id number] Chloride 101 97 - 110 mmol/L [facility] CO2 24 22 - 32 mmol/L [facility] Anion gap 16(H) 2 - 15 mmol/L [facility] BUN 96(H) 6 - 25 mg/dL [facility] Creatinine 7.47(H) 0.60 - 1.10 mg/dL [facility] Glucose 148 70 - 199 mg/dL [facility] Comment: Interpretive Data Fasting glucose >/= 126 [...] 2022. Calcium 8.2(L) 8.5 - 10.3 mg/dL [facility] Bilirubin, total 0.3 0.1 - 1.2 mg/dL [facility] Protein, pl 7.9 6.5 - 8.5 g/dL [facility] Albumin 4.3 3.5 - 5.0 g/dL [facility] Alk phos 144(H) 40 - 130 Units/L [facility] ALT 15 7 - 45 Units/L [facility] AST See Comment 10 - 45 [facility] Comment:Credited; Hemolyzed Specimen Blood 09/11/2024 8:18 AM ARCHIVAL RECORDS CLERK 09/11/2024 8:22 AM ARCHIVAL RECORDS CLERK us Jesu Chew MD LAB BLOOD ORDERABLES Final Resul t [place] [id number] [facility] Department [place] [address] * Hepatitis C antibody Blood (08/25/2024 10:24 AM ARCHIVAL RECORDS CLERK) Pathologist [facility] Hep C Ab Nonreactive Nonreactive Comment:Antibodies to HCV no t detected. Does NOT exclude the possibility of recent exposure to HCV. Current interpretive data was last revised on 22 Blood 08/25/2024 10:2 4 AM ARCHIVAL RECORDS CLERK 08/25/2024 10:58 AM ARCHIVAL RECORDS CLERK Narrative [facility] - 08/25/2024 11:45 AM ARCHIVAL RECORDS CLERK This lab is being obtained as part of a Kidney transplant evaluation, is time sensitive, and should only be drawn during the evaluation visit at [facility] Lab. us Ginette Mcgregor MD LAB MICROBIOLOGY - GENERAL ORDERABLES Final Result Performing Organization Address City/[facility] Co de Phone Number [facility] [address] Department [place] [address] * (ABNORMAL) Hemoglobin A1c (08/25/2024 10:24 AM ARCHIVAL RECORDS CLERK) Pathologist [facility] Hgb A1C 6.9(H) 4.0 - 5.6 % Estimated Average Glucose 151 mg/dL [facility] Comment: The ADA recommends reporting an estimated Average Glucose (eAG) with all Hemoglobin A1c results using the equation derived from a study of 507 normal and diabetic adults. Minority populations were underrepresented and children were not included. (Diabetes Care 2020; 43(S1): S66-S76). The eAG is not equivalent to a fasting glucose. Blood 08/25/2024 10:2 4 AM ARCHIVAL RECORDS CLERK 08/25/2024 10:58 AM ARCHIVAL RECORDS CLERK Narrative [facility] - 08/25/2024 11:27 AM ARCHIVAL RECORDS CLERK This lab is being obtained as part of a Kidney transplant evaluation, is time sensitive, and should only be drawn during the evaluation visit at [facility] Lab. us Ginette Mcgregor MD LAB BLOOD ORDERABLE S Final Result [facility] [address] Department [place] [address] * Lipid panel (08/25/2024 10:24 AM ARCHIVAL RECORDS CLERK) Cholesterol 188 30 - 199 mg/dL Comment: [...] revised on 2018. Triglycerides 49 <=149 mg/dL [facility] Comment: Interpretive Data Ages < or = [...] revised on 2018. HDL 72 >=40 mg/dL [facility] Comment: Interpretive Data Ages < or = [...] on 2018. LDL, calculated 106 <=129 mg/dL [facility] Comment: Interpretive Data Ages < or = [...] revised on 2024. Non-HDL Cholesterol 116 mg/dL [facility] Comment: Interpretive Data Ages < or = [...] last revised on 2018. Chol/HDL ratio 3 [facility] Blood 08/25/2024 10:2 4 AM ARCHIVAL RECORDS CLERK 08/25/2024 10:58 AM ARCHIVAL RECORDS CLERK Narrative [facility] - 08/25/2024 11:40 AM ARCHIVAL RECORDS CLERK This lab is being obtained as part of a Kidney transplant evaluation, is time sensitive, and should only be drawn during the evaluation visit at [facility] Lab. us Ginette Mcgregor MD LAB BLOOD ORDERABLE S Final Result [facility] [address] Department [place] [address] * (ABNORMAL) Albumin Creatinine Ratio, Urine (10/05/2023 3:35 AM CDT) Albumin Ur 267.0 mg/L Comment: Interpretive Data No reference range established. Current interpretive data was last revised 2018. Creatinine Ur 15.9 mg/dL [facility] Comment: Interpretive Data No reference range established. Current interpretive data was last revised 2018. Albumin Creatinine Ratio, Ur 1,679(H) 1 - 29 mg/g [facility] Urine 10/05/2023 3:35 AM CDT 10/05/2023 3:44 AM CDT us Forrest Saucedo MD LAB URINE ORDERABLES Final Re sult [facility] [address] [facility] Department [place] [address] from Last 3 Months or Most Recently Relevant to Health Maintenance
--- OUTSIDE RECORDS SUMMARY | 2024-11-25 16:34 | XMS_ITS | Encounter Summary ---
Author Organization [facility] Healthcare Address [address] [place] [address] Care Team Providers Care Science Job Titles Name Role Phone Deanna Wyatt Primary Care Provider [phone] Deanna Wyatt Unavailable [phone] Rissa Sprague MD Unavailable [phone] Shireen Marino RN Unavailable [phone] Td Nicolas MD PhD Unavailable [phone] Amrik Mata MD Unavailable [phone] Encounter Details Date Type Department Care Team (Late st Contact Info) Description 09/29/2024 Telephone [facility] [address] [place] [address] Vinayak Santos MD [address] [facility] [address] [place] [address] Social History Tobacco Use Types Packs/Day Years Used Date Smoking Tobacco: Never Passive Smoke Exposure: Never Smokeless Tobacco: Never [facility] Utilities Answer Date Recorded In the past 12 months has [employer], gas, oil, or water company threatened to [...] often do you attend chur ch or sikhism services? Never 09/19/2024 Do you belong to any clubs o r organizations such as mosque groups, unions, fraternal or athletic groups, or school groups? No 09/19/2024 How often do you attend meet ings of the clubs or organizations you belong to? Never 09/19/2024 Are you , , di vorced, , never , or living with a partner? 09/19/2024 AUDIT-C Answer Date Recorded Q1: How often do you have a drink containing alcohol? Never 02/14/2024 Q2: How many drinks containi ng alcohol do you have on a typical day when you are drinking? Patient does not drink Q3: How often do you have si x or more drinks on one occasion? Never 02/14/2024 Overall Financial Resource Strain (CARDIA) Answe r Date Recorded How hard is it for you to pa y for the very basics like food, housing, medical care, and heating? Not very hard 09/19/2024 PHQ-2 Answer Date Recorded PHQ-2 Total Score (If total score is 3 or more points, staff should administer the PHQ-9) 0 09/13/2024 [facility] - Occupational Stress Questionnaire Answer Date [...] money to buy more. Never true 09/19/19 Within the past 12 months, t he [...] place to sleep or slept in a alf (including now)? No 11/16/2023 PHQ-9 Answer Date [...] any time in the past 12 m [facility], were you homeless or living in a alf (including now)? No 09/19/2024 Personal Safety Answer Date Recorded Have you ever been in or are you currently in a harmful physical or emotional relationship or is someone making you feel afraid or unsafe? 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 Start Date End Date Deanna Wyatt PA [address] [place] [address] PCP - General Physician Religion Teacher 11/11/23 Deanna Wyatt PA [address] [place] [address] Physician Religion Teacher 11/09/23 Rissa Sprague MD [address] [place] [address] Consulting Physician Pulmonary Disease 10/05/23 Shireen Marino, RN [address] [facility] [address] [place] [address] Manager Of Customer Billing 05/07/24 Td Nicolas MD PhD [address] [place] [address] Consulting Physician Endocrinology Diabetes & Metabolism 06/06/24 Amrik Mata MD [address] [address] Referring Physician Nephrology 06/06/24 documented as of this encounter
--- OUTSIDE RECORDS SUMMARY | 2024-11-25 16:34 | XMS_ITS | Referral Summary ---
Author Organization [facility] Address [address] [place] [address] Care Team Providers Care Deburring Machine Operator Name Role Phone Deanna Wyatt Primary Care Provider [phone] Deanna Wyatt Unavailable [phone] Rissa Sprague MD Unavailable [phone] Shireen Marino RN Unavailable [phone] Td Nicolas MD PhD Unavailable [phone] Amrik Mata MD Unavailable [phone] Encounters Date Type Department Care Team Description 11/14/2024 Telephone [facility] Ophthalmology [facility] Outpatient Health 6th [place] [address] Mann Calvo MD PhD Pre Cert (2024 AVASTIN NOT ELIGIBLE FOR GOOD DAYS ) 11/03/2024 Orders Only [facility] Vascular and Vein Surgery [address] [facility] [address] [place] [phone] Vinayak Santos MD End stage renal disease (HCC) (Primary Dx); Arteriovenous fistula occlusion, initial encounter 11/03/2024 2:15 PM CDT Office Visit [facility] Vascular and Vein Surgery [address] [facility] [address] [place] [address] Marilyn Barrios NP ESRD (end stage renal disease) on dialysis (HCC) (Primary Dx) 10/17/2024 ACO Clinical Pharmacist [facility] [address] [place] [address] Yissel Tobias RPh 10/13/2024 7:30 AM CDT - 10/13/2024 9:25 AM CD[place] [place] [address] [place] [address] Vinayak Santos MD CREATION LEFT UPPER EXTREMITY ARTERIOVENOUS FISTULA 10/13/2024 7:30 AM CDT Anesthesia Event [facility] OR [address] [place] [address] Josselyn Bruno MD Lee, Walter, MD 10/13/2024 5:32 AM CDT - 10/13/2024 11:15 AM CDT Hospital Encounter [facility] OR [address] [place] [address] Vinayak Santos MD ESRD (end stage renal disease) (HCC) (Primary Dx) Discharge Disposition: Discharge to home or self care 10/03/2024 Telephone [facility] Transplant Kidney [address] [facility] [address] [phone] [place] [address] Shireen Marino RN Kidney Eval 09/30/2024 8:20 AM CDT Procedure visit [facility] Ophthalmology [address] [facility] Outpatient Health 6th [place] [address] Mann Calvo MD PhD 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) (Primary Dx) 09/29/2024 Telephone [facility] Dialysis Access Center at [facility] [address] [facility] [address] [place] [address] Vinayak Santos MD 09/29/2024 7:00 AM CDT - 09/29/2024 11:59 PM CDT Hospital [facility] [address] [facility] 8th [place] [address] Pre-transplant evaluation for kidney transplant; End stage renal disease (HCC); Pulmonary hypertension (HCC) Discharge Disposition: Discharge to home or self care 09/29/2024 8:00 AM CDT - 09/29/2024 11:59 PM CDT Hospital Encounter [facility] Pulmonary Rehabilitiation Program [address] [facility] [address], [place] [address] Discharge Disposition: Discharge to home or self care 09/23/2024 3:00 PM FACTORY LABORER Office Visit [facility] Medical [facility] Cardiology [address] [place] [address] [place] [phone] Candido Tariq MD Pre-operative cardiovascular examination (Primary Dx) 09/18/2024 10:26 AM FACTORY LABORER - 09/21/2024 2:15 PM FACTORY LABORER Hospital Encounter [facility] 2 Center [facility] [place] [address] Pablo Gallego MD Saravanan, Pathanjali, MD Elizondo, Daniel Elias, MD Hyperkalemia (Primary Dx); ESRD on hemodialysis (HCC) Discharge Disposition: Discharge to home or self care 09/16/2024 Results Follow-Up [facility] [address] [place] [address] Kourtney Damon PA 09/16/2024 Telephone [facility] Medical [facility] Cardiology [address] [place] [address] [phone] Candido Tariq MD 09/16/2024 Telephone [facility] Dialysis Access Center at [facility] [address] [facility] [address] [place] [address] Marilyn Barrios NP Cardiac Clearance / LUE AVF vs AVG Creation 09/16/2024 11:03 AM FACTORY LABORER - 09/16/2024 11:59 PM FACTORY LABORER Hospital Encounter [facility] Dialysis Access Center at [facility] [address] [facility] [address] [place] [address] ESRD on hemodialysis (HCC) (Primary Dx); Essential hypertension; Type 2 DM with CKD stage 3 and hypertension (HCC); Chronic diastolic congestive heart failure (HCC) Discharge Disposition: Discharge to home or self care 09/16/2024 11:00 AM FACTORY LABORER - 09/16/2024 11:59 PM FACTORY LABORER Hospital Encounter [facility] Medical Office Building 2 Vascular [address] [facility] [address] [place] [address] Pre-operative exam; End stage renal disease (HCC) Discharge Disposition: Discharge to home or self care 09/11/2024 7:59 AM FACTORY LABORER - 09/11/2024 5:16 PM FACTORY LABORER Emergency [facility] [address] [facility] [place] [address] Jesu Chew MD Philip, Antonio Gary MD ESRD on hemodialysis (HCC) (Primary Dx); Weakness; ESRD (end stage renal disease) (HCC); Dizziness; Hyperkalemia Discharge Disposition: Discharge to home or self care from Last 3 Months Allergies No known active allergies Medications loratadine [...] 03/07/2024 Assessment & Plan (09/16/2024 1:13 PM FACTORY LABORER): Impression: Chronic and stable. Plan: Continue amlodipine Assessment & Plan (03/31/2024 3:23 PM CDT): Continue antihypertensive ESRD on hemodialysis 03/04/2024 Assessment & Plan (09/16/2024 1:12 PM FACTORY LABORER): Impression: Patient is being dialyzed through a [...] - Patient to be evaluated from his bight maker for cardiac clearance prior to surgery -Continue [...] surgery with Dr. 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 Discussed R/B/A of anti-VEGF and patient wishes to proceed. I'VE today Warning Sx endophthalmitis discussed Chronic cough 08/03/2023 Nonsmoker 08/03/2023 Vomiting 06/09/2023 Assessment & Plan (06/12/2023 10:58 AM FACTORY LABORER): Patient with vomiting after surgical procedure under anesthesia. Vomiting started to improve without any episodes in over 12 hours, then she was unable to tolerate anything PO. - IV anti emetics ordered, transitioned to PO as patient reports improvement in symptoms. Tolerating diet currently JOAN (acute kidney injury) 06/09/2023 Assessment & Plan (06/11/2023 11:54 AM FACTORY LABORER): Per documentation patient with CKD stage 3. [...] 05/23 Assessment & Plan (09/16/2024 1:11 PM FACTORY LABORER): Impression: Chronic with good glucose control Plan: Continue insulin. Assessment & Plan (05/13/2024 4:38 PM CDT): 49 y.o. female with type 2 diabetes mellitus, on insulin, poorly-controlled, complicated by peripheral neuropathy, proliferative diabetic retinopathy, ESRD on HD (), diastolic CHF (LVEF 55-60%), pulmonary hypertension, 4 [...] CGM No results found for: CPEPTIDE , ACX61DI , IA2AB Lab Results Component Value Date [...] insulin Assessment & Plan (06/10/2023 6:03 PM FACTORY LABORER): Patient on home Farxiga, Januvia, and metformin - A1c 6.9 - hold oral medications - sliding scale insulin and consistent carb diet given decreased p.o. - blood glucose stable Chronic diastolic heart failure 06/09/2023 Assessment & Plan (06/11/2023 11:56 AM FACTORY LABORER): Chart review of history of chronic diastolic heart failure. No echocardiogram in our system. Patient reports following with Dr. Salomon for Cardiology in [place] - continue atorvastatin, Coreg and hold Entresto and Farxiga given JOAN above - Encourage patient to continue to follow up with outpatient provider Proliferative diabetic retin opathy of both eyes with macular edema associated with type 2 diabetes mellitus 05/29/2023 Assessment & Plan (08/12/2024 11:29 AM FACTORY LABORER): OS s/p PRP - referred back by [...] PDR Assessment & Plan (09/18/2023 10:51 AM FACTORY LABORER): OD mild VH h/o PPV with laser Inject OD today OS recent injection 5 days ago, history of PRP Understands guarded prognosis Assessment & Plan (09/13/2023 3:39 PM FACTORY LABORER): Vitreous hemorrhage today limiting fundus view, attached 360 right eye (OD). Discussed R/B/A of likely anti-VEGF right eye (OD) at follow up with Dr. Calvo Assessment & Plan (06/19/2023 10:16 AM FACTORY LABORER): S/p PPV laser MP OD PRP OS Taper drops PF Discontinue antibiotic Assessment & Plan (06/11/2023 11:48 AM FACTORY LABORER): Patient with recent surgical procedure by Ophthalmology. Had postop follow-up eye appointment without complication. - continue outpatient drops as prescribed. - will continue to hold aspirin as unclear when patient was supposed to restart this medication and patient planning to call ophthalmology office today to find out Assessment & Plan (05/29/2023 9:10 AM FACTORY LABORER): Discussed DRCR studies and discussed severity of [...] ketones 0.9, pH 7.36. Workup: UA w/ -50 WBCs (but contaminated by squams), CXR neg, [...] time. (Patient reportedly to reschedule appt. with med peds Dr. Saucedo). Coffee ground emesis 11/09/2023 024 [...] e due to infectious organism 06/08/2023 06/09/2023 Immunizations Immunization Administration Dates Next Due Hep B Vaccine 05/15/2024,04/19/2024,03/15/2024 Influenza, Trivalent, IM (MDV) 04/16/2024 Influenza, Trivalent, Preser vative Free, Intramuscular 04/11/2024 Influenza, Unspecified 04/16/2024 PPD TEST 03/18/2024 Pneumococcal Conjugate Pcv20 08/28/2024 Tdap 08/10/2022,06/03/2020 Social History Tobacco Use Types Packs/Day Years Used Date Smoking Tobacco: Never Passive Smoke Exposure: Never Smokeless Tobacco: Never Tobacco Cessation:Counseling Given: Yes [facility] Utilities Answer Date Recorded In the past 12 months has e electric, gas, oil, or water [employer] threatened to shut off services in your [...] 09/19/2024 How often do you attend chur or sikhism services? Never 09/19/2024 Do you belong to any clubs o r organizations such as jehovah's witness groups, unions, fraternal or athletic groups, or [...] staff should administer the PHQ-9) 0 09/13/2024 [facility] - Occupational Stress [...] place to sleep or slept in a mcc (including now)? No 11/16/2023 PHQ-9 Answer Date [...] any time in the past 12 m [facility], were you homeless or living in a mcc (including now)? No 09/19/2024 Personal Safety Answer [...] 11/03/2024 2:22 PM CDT Plan of Treatment Not on file Medical Devices Implanted Type Area Brush Holder Inspector Device Identifier Shelf Expiration Date Model / Serial / Lot Iud Vagina Fitzeal Duraflow Embosafe 15.5fr 28cm Basic 2 Lumen Kit Catheter [id number] - [id number] Implanted:Qty: 1 on 03/05/2024 by Boubacar Medel MD at [facility] Right: Internal Jugular Fitzeal 04/21/2026 [id number] / / [id number] Procedures Procedure Name Priority Date/Time Associated Diagnosis Comments POCT GLUCOSE DEVICE Routine 10/13/2024 9 :12 AM CDT IN AN PROCEDURE PLACEHOLDER Routine 10/13/2024 7:47 AM CDT IN AN ELECTIVE ENDOTRACHEAL AIRWAY Routine 10/13/2024 7:47 [...] GLUCOSE DEVICE Routine 09/21/2024 1 1:53 AM FACTORY LABORER POCT GLUCOSE DEVICE Routine 09/21/2024 7 :50 AM FACTORY LABORER EGFR Routine 09/21/2024 4:31 AM FACTORY LABORER DIFFERENTIAL AUTO Routine 09/21/2024 4:3 1 AM FACTORY LABORER MAGNESIUM Routine 09/21/2024 4:31 AM FACTORY LABORER BASIC METABOLIC PANEL Routine 09/21/2024 4:31 AM FACTORY LABORER HEPATIC FUNCTION PANEL Routine 09/21/2024 4:31 AM FACTORY LABORER CBC WITH AUTO DIFFERENTIAL Routine 09/21/2024 4:31 AM FACTORY LABORER POCT GLUCOSE DEVICE Routine 09/20/2024 8 :07 PM FACTORY LABORER POCT GLUCOSE DEVICE Routine 09/20/2024 4 :[address] HEAD WO CONTRAST ED Urgent/IP Urgent 09/20/2024 1:57 PM FACTORY LABORER POCT GLUCOSE DEVICE Routine 09/20/2024 1 :10 PM FACTORY LABORER POCT GLUCOSE DEVICE Routine 09/20/2024 8 :20 AM FACTORY LABORER LIPASE Routine 09/20/2024 6:29 AM FACTORY LABORER EGFR Routine 09/20/2024 6:29 AM FACTORY LABORER DIFFERENTIAL AUTO Routine 09/20/2024 6:2 9 AM FACTORY LABORER MAGNESIUM Routine 09/20/2024 6:29 AM FACTORY LABORER BASIC METABOLIC PANEL Routine 09/20/2024 6:29 AM FACTORY LABORER HEPATIC FUNCTION PANEL Routine 09/20/2024 6:29 AM FACTORY LABORER CBC WITH AUTO DIFFERENTIAL Routine 09/20/2024 6:29 AM FACTORY LABORER POCT GLUCOSE DEVICE Routine 09/20/2024 6 :19 AM FACTORY LABORER POCT GLUCOSE DEVICE Routine 09/19/2024 8 :26 PM FACTORY LABORER POCT GLUCOSE DEVICE Routine 09/19/2024 4 :[address] ABDOMEN PELVIS WO CONTRAST ED Urgent/IP Urgent 09/19/2024 1:08 PM FACTORY LABORER POCT GLUCOSE DEVICE Routine 09/19/2024 1 1:26 AM FACTORY LABORER HCG, BLOOD, QUANTITATIVE STAT 09/19/2024 10:48 AM FACTORY LABORER HEMODIALYSIS Routine 09/19/2024 10:31 AM FACTORY LABORER POCT GLUCOSE DEVICE Routine 09/19/2024 8 :28 AM FACTORY LABORER EGFR Routine 09/19/2024 6:44 AM FACTORY LABORER DIFFERENTIAL AUTO Routine 09/19/2024 6:4 4 AM FACTORY LABORER CBC WITH AUTO DIFFERENTIAL Routine 09/19/2024 6:44 AM FACTORY LABORER PHOSPHORUS Routine 09/19/2024 6:44 AM FACTORY LABORER MAGNESIUM Routine 09/19/2024 6:44 AM FACTORY LABORER COMPREHENSIVE METABOLIC PANEL Routine 09/19/2024 6:44 AM FACTORY LABORER POCT GLUCOSE DEVICE Routine 09/18/2024 7 :37 PM FACTORY LABORER US KIDNEY COMPLETE IP Routine 09/18/2024 7: 21 PM FACTORY LABORER BUN Routine 09/18/2024 6:45 PM FACTORY LABORER POTASSIUM LEVEL Timed 09/18/2024 6:45 PM FACTORY LABORER POCT GLUCOSE DEVICE Routine 09/18/2024 5 :58 PM FACTORY LABORER POTASSIUM LEVEL STAT 09/18/2024 2:00 PM FACTORY LABORER POCT GLUCOSE DEVICE Routine 09/18/2024 1 :28 PM FACTORY LABORER HEMODIALYSIS Routine 09/18/2024 12:48 PM FACTORY LABORER POCT GLUCOSE DEVICE Routine 09/18/2024 1 1:58 AM FACTORY LABORER URINALYSIS, MICROSCOPIC ONLY STAT 09/18/2024 10:15 AM FACTORY LABORER URINE CULTURE STAT 09/18/2024 10:15 AM FACTORY LABORER URINALYSIS AND REFLEX TO MICROSCOPIC AND CULTURE STAT 09/18/2024 10:15 AM FACTORY LABORER POC BLOOD GAS AND CHEMISTRIES, VENOUS Routine 09/18/2024 10:12 AM FACTORY LABORER ECG 12-LEAD STAT 09/18/2024 9:44 AM FACTORY LABORER MAGNESIUM STAT 09/18/2024 9:38 AM FACTORY LABORER PHOSPHORUS STAT 09/18/2024 9:38 AM FACTORY LABORER EGFR STAT 09/18/2024 9:38 AM FACTORY LABORER DIFFERENTIAL AUTO STAT 09/18/2024 9:3 8 AM FACTORY LABORER COMPREHENSIVE METABOLIC PANEL STAT 09/18/2024 9:38 AM FACTORY LABORER CBC WITH AUTO DIFFERENTIAL STAT 09/18/2024 9:38 AM FACTORY LABORER US VEIN MAPPING DUPLEX UPPER EXTREMITY BILATERAL Schedule Routine, Read Routine (OP Routine) 09/16/2024 1:28 PM FACTORY LABORER Pre-operative exam End stage renal disease (HCC) URINALYSIS, MICROSCOPIC ONLY STAT 09/11/2024 3:43 PM FACTORY LABORER URINE CULTURE STAT 09/11/2024 3:43 PM FACTORY LABORER URINALYSIS AND REFLEX TO MICROSCOPIC AND CULTURE STAT 09/11/2024 3:43 PM FACTORY LABORER POCT GLUCOSE DEVICE Routine 09/11/2024 3 :12 PM FACTORY LABORER HEPATITIS B SURFACE ANTIGEN STAT 09/11/2024 10:58 AM FACTORY LABORER HEPATITIS B SURFACE ANTIBODY (IMMUNE STATUS) STAT 09/11/2024 10:58 AM FACTORY LABORER POCT GLUCOSE DEVICE Routine 09/11/2024 1 0:43 AM FACTORY LABORER POCT GLUCOSE DEVICE Routine 09/11/2024 1 0:07 AM FACTORY LABORER POTASSIUM LEVEL Timed 09/11/2024 10:05 AM FACTORY LABORER HEMODIALYSIS Routine 09/11/2024 9:32 AM FACTORY LABORER XR CHEST 1 VIEW ED 09/11/2024 9:00 AM FACTORY LABORER POC BLOOD GAS AND CHEMISTRIES, VENOUS Routine 09/11/2024 8:35 AM FACTORY LABORER ECG 12-LEAD STAT 09/11/2024 8:19 AM FACTORY LABORER EGFR STAT 09/11/2024 8:18 AM FACTORY LABORER DIFFERENTIAL AUTO STAT 09/11/2024 8:1 8 AM FACTORY LABORER COMPREHENSIVE METABOLIC PANEL STAT 09/11/2024 8:18 AM FACTORY LABORER CBC WITH AUTO DIFFERENTIAL STAT 09/11/2024 8:18 AM FACTORY LABORER INFLUENZA A/B, RSV, AND COVID-19 PCR STAT 09/11/2024 8:18 AM FACTORY LABORER HEPATITIS C ANTIBODY Routine 08/25/2024 10:24 AM FACTORY LABORER Pre-transplant evaluation for kidney transplant End stage renal disease (HCC) HEMOGLOBIN A1C Routine 08/25/2024 10:24 AM FACTORY LABORER Pre-transplant evaluation for kidney transplant End stage renal disease (HCC) LIPID PANEL Routine 08/25/2024 10:24 AM FACTORY LABORER Pre-transplant evaluation for kidney transplant End stage [...] ORDERABLES - DEVICE Fin al Result Y[facility] [id number] [facility] Department [place] [address] * IN AN ELECTIVE ENDOTRACHEAL AIRWAY, IN AN PROCEDURE PLACEHOLDER (10/13/2024 7:47 AM CDT) Narrative Addison Chandler CRNA - 10/13/2024 7:47 AM CDT Addison Chandler CRNA 10/13/2024 7:47 AM Airway Patient location: OR Urgency: elective Indications for airway management: anesthesia Difficult airway: no Staff: Supervising provider: Josselyn Bruno MD Placed by: TEACHER SPECIALIST: Addison Chandler CRNA Emergent airway documentation: Risks [...] ECG 12 lead (10/13/2024 7:04 AM CDT) [facility] Ventricular Rate EKG/Min 99 BPM [facility] Atrial Rate 99 BPM [facility] IN-Interval (MSEC) 172 ms [facility] QRS-Interval (MSEC) 88 ms [facility] QT-Interval (MSEC) 356 ms [facility] QTc 456 ms [facility] P Irving 52 degrees [facility] R Irving 27 degrees [facility] T Irving 26 degrees [facility] Diagnosis Normal sinus rhythm Left atrial abnormality . Minimal voltage criteria for LVH, may be normal variant ( Bryant product ) When compared with ECG of 18-SEP-2024 09:44, No significant change was found Confirmed by SULTAN CHRISTINA M.D. ([id number]) on 10/13/2024 2:40:51 PM [facility] 10/13/2024 7:04 AM CDT 10/13/2024 2:40 PM CDT us Josselyn Bruno MD ECG ORDERABLES Final Result [facility] * (ABNORMAL) eGFR (10/13/2024 6:03 AM CDT) Pathologist [facility] eGFR 7(L) >=60 mL/min/1. 73 m2 [...] ORDERABLES Final Resul t Performing Organization Address City/[facility]/ZIP Co de Phone Number [id number] [place] [address] * POCT glucose (10/13/2024 6:03 AM CDT) Glucose, POC 137 70 - 199 mg/dL Glucose comment 1 Will Repeat Test YAW Blood 10/13/2024 6:03 AM CDT 10/13/2024 6:03 AM CDT Vinayak Santos MD LAB POCT ORDERABLES - DEVICE Fin al Result Performing Organization Address City/[facility] Co de Phone Number [address] [place] [address] * aPTT (10/13/2024 6:03 AM CDT) aPTT 32 22 - 37 sec Comment: Interpretive data aPTT test has not been evaluated for monitoring heparin therapy. The anti-Xa is the preferred test. Current interpretive data was last revised on 2019. Blood 10/13/2024 6:03 AM CDT 10/13/2024 6:08 AM CDT Vinayak Santos MD LAB BLOOD ORDERABLES Final Resul t Performing Organization Address [facility] de Phone Number YAW [address] [address] * Protime-INR (10/13/2024 6:03 AM CDT) Pathologist [facility] PT 13.9 12.0 - 14.6 sec INR 1.1 0.9 - 1.2 [facility] Comment: Ref Range High Interpretive data Oral [...] ORDERABLES Final Resul t Performing Organization Address [facility] de Phone Number YAW [address] [address] * CBC without differential (10/13/2024 6:03 AM CDT) Pathologist [facility] WBC 5.8 3.8 - 9.9 K/cumm Hgb 13.2 11.9 - 15.5 g/dL [facility] Hct 39.2 35.6 - 45.5 % [facility] Plt 188 150 - 400 K/cumm [facility] MPV 10.0 9.1 - 12.3 fL [facility] RBC 4.42 3.90 - 5.20 M/cumm [facility] MCV 88.7 81.3 - 96.4 fL [facility] MCH 29.9 27.1 - 33.3 pg [facility] MCHC 33.7 32.3 - 35.7 g/dL [facility] RDW CV 14.0 11.1 - 14.9 % [facility] RDW SD 45.1 35.7 - 48.1 fL [facility] NRBC abs 0.00 0.00 - 0.01 K/cumm [facility] Blood 10/13/2024 6:03 AM CDT 10/13/2024 6:08 AM CDT Vinayak Santos MD LAB BLOOD ORDERABLES Final Resul t Performing Organization Address [facility] de Phone Number [address] [address] * (ABNORMAL) hCG, blood, quantitative (10/13/2024 6:03 AM CDT) [facility] hCG, quant 7.8(H) 0.0 - 5.0 IUnits/L [...] ORDERABLES Final Resul t Performing Organization Address [facility] de Phone Number [address] [address] * (ABNORMAL) Basic metabolic panel (10/13/2024 6:03 AM CDT) [facility] Sodium 139 135 - 145 mmol/L Potassium, pl 4.1 3.3 - 4.9 mmol/L [facility] Comment:Hemolyzed; Potassium value may be falsely elevated by as much as 1.0 mmol/L. Suggest redraw and reanalysis. Chloride 93(L) 97 - 110 mmol/L [facility] CO2 29 22 - 32 mmol/L [facility] Anion gap 17(H) 2 - 15 mmol/L [facility] BUN 43(H) 6 - 25 mg/dL [facility] Creatinine 6.65(H) 0.60 - 1.10 mg/dL [facility] Glucose 140 70 - 199 mg/dL [facility] Comment: Interpretive Data Fasting glucose >/= [...] 2022. Calcium 9.2 8.5 - 10.3 mg/dL [facility] Blood 10/13/2024 6:03 AM CDT 10/13/2024 6:08 AM CDT us Vinayak Santos MD LAB BLOOD ORDERABLES Final Resul t [facility] [address] [facility] Department [place] [address] * POCT hCG, urine (10/13/2024 6:00 AM CDT) HCG, ur, POC Negative Negative Lot Number [...] Proparacaine 0.5%. The anesthesia lot number is [id number]. The expiration date is . The manufacture of the medication is [employer]. Intravitreal Injection, Pharmacologic Agent Preparation included 5% betadine to ocular surface, 10% betadine to eyelids, eyelid speculum. A 30 gauge needle was used. Pharmaceutical Medication: 2 mg aflibercept syringe 2 mg/0.05 mL Route: intravitreal, Site: Left [facility]: [id number], Lot: [id number], Expiration date: 05/22/2025, Waste: 0 mL The [...] Patient signed consent for I'VE OS 09/30/2024 us Mann Calvo MD PhD [facility] Final Result * Six Minute Walk - (09/29/2024 8:17 AM CDT) Anatomical Region Laterality Modality PFT Narrative 10/01/2024 5:24 PM CDT Table formatting from the original result was not included. Teresa Patel RRT on 09/29/2024 8:39 AM Table formatting from the original note was not included. 6 MINUTE WALK RESULTS Name: Jennifer Carter : 1975 DOS: 09/29/2024 Diagnosis: Ktx eval STEAM BOX TENDER performed walk: Jeffrey Patel Rest: 1 min [...] AM CDT Narrative 09/29/2024 2:26 PM CDT [facility] Cardiac [place] [address] Transthoracic Echocardiographic Report Patient Name: JENNIFER CARTER : 1975 (49y 8m) Gender: F Study Date: 09/29/2024 07:18:43 AM Ht(Inch): 68 Wt(Lb): 162.92 BSA: 1.88 Sweet Potato Disintegrator: LEANDRO Banda Location: [facility] Order Provider: GINETTE MCGREGOR Heart Rate: 73 BMI: 24.77 BP: 179 / 88 Quality: The study images were of technically good quality. Ref Provider: GINETTE MCGREGOR PROCEDURES: Echocardiographic Report: ([id number]) Transthoracic complete echo with strain imaging, 2D, [...] Procedure Note Anish Antonio MD - 09/29/2024 [facility] [place] [address] Transthoracic Echocardiographic Report Patient Name: JENNIFER CARTER : 1975 (49y 8m) Gender: F Study Date: 09/29/2024 07:18:43 AM Ht(Inch): 68 Wt(Lb): 162.92 BSA: 1.88 Sweet Potato Disintegrator: LEANDRO Banda Location: [facility] Order Provider:GINETTE MCGREGOR Heart Rate: 73 BMI: 24.77 BP: 179 / 88 Quality: The study images were oftechnically good quality. Ref Provider: GINETTE MCGREGOR PROCEDURES: Echocardiographic Report: ([id number]) Transthoracic complete echo withstrain imaging, 2D, spectral [...] study completed on 08/25/2024. No change compared [facility] study. ATTESTATION: I have reviewed and [...] Result * POCT glucose (09/21/2024 11:53 AM FACTORY LABORER) Glucose, POC 152 70 - 199 mg/dL Blood 09/21/2024 11:5 3 AM FACTORY LABORER 09/21/2024 11:53 AM FACTORY LABORER us Galo Smith MD LAB POCT ORDERABLES - D OUMOU Final Result YAW [address] [facility] Department [place] [address] * POCT glucose (09/21/2024 7:50 AM FACTORY LABORER) Glucose, POC 171 70 - 199 mg/dL Blood 09/21/2024 7:50 AM FACTORY LABORER 09/21/2024 7:50 AM FACTORY LABORER Galo Smith MD LAB POCT ORDERABLES - D EVICE Final Result Performing Organization Address [facility] Co de Phone Number YAW [address] [place] [address] * (ABNORMAL) eGFR (09/21/2024 4:31 AM FACTORY LABORER) [facility] eGFR 10(L) >=60 mL/min/1. 73 m2 [...] last reviewed 2021. Blood 09/21/2024 4:31 AM FACTORY LABORER 09/21/2024 5:12 AM FACTORY LABORER us Galo Smith MD LAB BLOOD ORDERABLES Fi nal Result Performing Organization Address City/[facility]/ZIP Co de Phone Number YAW [address] [place] [address] * Differential, auto (09/21/2024 4:31 AM FACTORY LABORER) [facility] Neutrophil abs 2.8 1.5 - 6.5 K/cumm Imm gran abs 0.0 0.0 - 0.1 K/cumm [facility] Lymphocyte abs 1.5 0.8 - 3.3 K/cumm [facility] Monocyte abs 0.4 0.2 - 0.8 K/cumm [facility] Eosinophil abs 0.1 0.0 - 0.5 K/cumm [facility] Basophil abs 0.1 0.0 - 0.1 K/cumm [facility] Neutrophil pct 57.2 % [facility] Comment: Interpretive Data Percent cell count reference ranges are not reported, since discordance with absolute values may lead to misinterpretation of CBC data. Current Interpretive Data was last revised on 2017. Imm gran pct 0.2 % [facility] Comment: Interpretive Data Percent cell count reference ranges are not reported, since discordance with absolute values may lead to misinterpretation of CBC data. Current Interpretive Data was last revised on 2017. Lymphocyte pct 30.6 % [facility] Comment: Interpretive Data Percent cell count reference ranges are not reported, since discordance with absolute values may lead to misinterpretation of CBC data. Current Interpretive Data was last revised on 2017. Monocyte pct 8.8 % [facility] Comment: Interpretive Data Percent cell count reference ranges are not reported, since discordance with absolute values may lead to misinterpretation of CBC data. Current Interpretive Data was last revised on 2017. Eosinophil pct 2.2 % [facility] Comment: Interpretive Data Percent cell count reference ranges are not reported, since discordance with absolute values may lead to misinterpretation of CBC data. Current Interpretive Data was last revised on 2017. Basophil pct 1.0 % [facility] Comment: Interpretive Data Percent cell count reference ranges are not reported, since discordance with absolute values may lead to misinterpretation of CBC data. Current Interpretive Data was last revised on 2017. Blood 09/21/2024 4:31 AM FACTORY LABORER 09/21/2024 5:11 AM FACTORY LABORER us Galo Smith MD LAB BLOOD ORDERABLES Fi nal Result [facility] [address] [facility] Department [place] [address] * (ABNORMAL) CBC with auto differential (09/21/2024 4:31 AM FACTORY LABORER) [facility] WBC 4.9 3.8 - 9.9 K/cumm Hgb 14.1 11.9 - 15.5 g/dL [facility] Hct 44.0 35.6 - 45.5 % [facility] Plt 163 150 - 400 K/cumm [facility] MPV 10.0 9.1 - 12.3 fL [facility] RBC 4.76 3.90 - 5.20 M/cumm [facility] MCV 92.4 81.3 - 96.4 fL [facility] MCH 29.6 27.1 - 33.3 pg [facility] MCHC 32.0(L) 32.3 - 35.7 g/dL [facility] RDW CV 14.6 11.1 - 14.9 % [facility] RDW SD 49.9(H) 35.7 - 48.1 fL [facility] NRBC abs 0.00 0.00 - 0.01 K/cumm [facility] Blood 09/21/2024 4:31 AM FACTORY LABORER 09/21/2024 5:11 AM FACTORY LABORER Galo Smith MD LAB BLOOD ORDERABLES Fi nal Result Performing Organization Address [facility] Co de Phone Number [address] [place] [address] * Magnesium (09/21/2024 4:31 AM FACTORY LABORER) [facility] Magnesium 2.5 1.4 - 2.5 mg/dL Blood 09/21/2024 4:31 AM FACTORY LABORER 09/21/2024 5:12 AM FACTORY LABORER Galo Smith MD LAB BLOOD ORDERABLES Fi nal Result Performing Organization Address City/[facility] Co de Phone Number [address] [place] [address] * (ABNORMAL) Hepatic function panel (09/21/2024 4:31 AM FACTORY LABORER) [facility] Bilirubin, total 0.2 0.1 - 1.2 mg/dL Bilirubin, direct 0.1 0.1 - 0.3 mg/dL [facility] Protein, pl 7.8 6.5 - 8.5 g/dL [facility] Albumin 4.0 3.5 - 5.0 g/dL [facility] Alk phos 143(H) 40 - 130 Units/L [facility] ALT 11 7 - 45 Units/L [facility] AST 25 10 - 45 Units/L [facility] Blood 09/21/2024 4:31 AM FACTORY LABORER 09/21/2024 5:12 AM FACTORY LABORER us Galo Smith MD LAB BLOOD ORDERABLES Fi nal Result [facility] [address] [facility] Department [place] [address] * (ABNORMAL) Basic metabolic panel (09/21/2024 4:31 AM FACTORY LABORER) Sodium 136 135 - 145 mmol/L Potassium, pl 4.2 3.3 - 4.9 mmol/L [facility] Chloride 94(L) 97 - 110 mmol/L [facility] CO2 27 22 - 32 mmol/L [facility] Anion gap 15 2 - 15 mmol/L [facility] BUN 33(H) 6 - 25 mg/dL [facility] Creatinine 5.15(H) 0.60 - 1.10 mg/dL [facility] Glucose 155 70 - 199 mg/dL [facility] Comment: Interpretive Data Fasting glucose >/= [...] 2022. Calcium 8.8 8.5 - 10.3 mg/dL [facility] Blood 09/21/2024 4:31 AM FACTORY LABORER 09/21/2024 5:12 AM FACTORY LABORER Galo Smith MD LAB BLOOD ORDERABLES Fi nal Result Performing Organization Address [facility] Co de Phone Number YAW [address] [address] * POCT glucose (09/20/2024 8:07 PM FACTORY LABORER) Glucose, POC 105 70 - 199 mg/dL Glucose comment 1 Use This Result [facility] Glucose comment 2 RN/MD Notified [facility] Blood 09/20/2024 8:07 PM FACTORY LABORER 09/20/2024 8:07 PM FACTORY LABORER Galo Smith MD LAB POCT ORDERABLES - D EVICE Final Result Performing Organization Address [facility] Co de Phone Number [address] [address] * POCT glucose (09/20/2024 4:37 PM FACTORY LABORER) Glucose, POC 101 70 - 199 mg/dL Glucose comment 1 Use This Result [facility] Glucose comment 2 RN/MD Notified [facility] Blood 09/20/2024 4:37 PM FACTORY LABORER 09/20/2024 4:37 PM FACTORY LABORER Galo Smith MD LAB POCT ORDERABLES - D EVICE Final Result Performing Organization Address [facility] Co de Phone Number [address] [address] * CT Head WO Contrast (09/20/2024 1:57 PM FACTORY LABORER) Anatomical Region Laterality Modality Head and Neck N/A Computed Tomogra phy 09/20/2024 2:29 PM FACTORY LABORER Narrative 09/20/2024 2:34 PM FACTORY LABORER EXAM DESCRIPTION: CT HEAD WO CONTRAST REASON [...] Carmen Castellon M.D. AT T: Report ID: [id number] [facility] Location: [id number] Procedure Note Carmen Castellon MD - 09/20/2024 [...] Carmen Castellon M.D. AT T: Report ID: [id number] [facility] Location: [id number] Galo Smith MD IMG CT PROCEDURES Final Result * POCT glucose (09/20/2024 1:10 PM FACTORY LABORER) [facility] Glucose, POC 97 70 - 199 mg/dL Blood 09/20/2024 1:10 PM FACTORY LABORER 09/20/2024 1:10 PM FACTORY LABORER Galo Smith MD LAB POCT ORDERABLES - D EVICE Final Result Performing Organization Address [facility]/ZIP Co de Phone Number [address] [place] [address] * POCT glucose (09/20/2024 8:20 AM FACTORY LABORER) [facility] Glucose, POC 159 70 - 199 mg/dL Glucose comment 1 Use This Result [facility] Glucose comment 2 RN/MD Notified [facility] Blood 09/20/2024 8:20 AM FACTORY LABORER 09/20/2024 8:20 AM FACTORY LABORER Galo Smith MD LAB POCT ORDERABLES - D EVICE Final Result Performing Organization Address City/[facility] Co de Phone Number [address] [place] [address] * (ABNORMAL) eGFR (09/20/2024 6:29 AM FACTORY LABORER) [facility] eGFR 7(L) >=60 mL/min/1. 73 m2 [...] last reviewed 2021. Blood 09/20/2024 6:29 AM FACTORY LABORER 09/20/2024 7:32 AM FACTORY LABORER us Galo Smith MD LAB BLOOD ORDERABLES Fi nal Result [facility] [address] [facility] Department [place] [address] * Differential, auto (09/20/2024 6:29 AM FACTORY LABORER) Neutrophil abs 4.3 1.5 - 6.5 K/cumm Imm gran abs 0.0 0.0 - 0.1 K/cumm [facility] Lymphocyte abs 1.2 0.8 - 3.3 K/cumm [facility] Monocyte abs 0.4 0.2 - 0.8 K/cumm [facility] Eosinophil abs 0.1 0.0 - 0.5 K/cumm [facility] Basophil abs 0.1 0.0 - 0.1 K/cumm [facility] Neutrophil pct 70.8 % [facility] Comment: Interpretive Data Percent cell count reference ranges are not reported, since discordance with absolute values may lead to misinterpretation of CBC data. Current Interpretive Data was last revised on 2017. Imm gran pct 0.3 % [facility] Comment: Interpretive Data Percent cell count reference ranges are not reported, since discordance with absolute values may lead to misinterpretation of CBC data. Current Interpretive Data was last revised on 2017. Lymphocyte pct 19.7 % [facility] Comment: Interpretive Data Percent cell count reference ranges are not reported, since discordance with absolute values may lead to misinterpretation of CBC data. Current Interpretive Data was last revised on 2017. Monocyte pct 6.9 % [facility] Comment: Interpretive Data Percent cell count reference ranges are not reported, since discordance with absolute values may lead to misinterpretation of CBC data. Current Interpretive Data was last revised on 2017. Eosinophil pct 1.5 % [facility] Comment: Interpretive Data Percent cell count reference ranges are not reported, since discordance with absolute values may lead to misinterpretation of CBC data. Current Interpretive Data was last revised on 2017. Basophil pct 0.8 % [facility] Comment: Interpretive Data Percent cell count reference ranges are not reported, since discordance with absolute values may lead to misinterpretation of CBC data. Current Interpretive Data was last revised on 2017. Blood 09/20/2024 6:29 AM FACTORY LABORER 09/20/2024 7:32 AM FACTORY LABORER Galo Smith MD LAB BLOOD ORDERABLES Fi nal Result [facility] [address] [facility] Department [place] [address] * (ABNORMAL) CBC with auto differential (09/20/2024 6:29 AM FACTORY LABORER) WBC 6.1 3.8 - 9.9 K/cumm Hgb 13.3 11.9 - 15.5 g/dL [facility] Hct 41.0 35.6 - 45.5 % [facility] Plt 187 150 - 400 K/cumm [facility] MPV 10.9 9.1 - 12.3 fL [facility] RBC 4.43 3.90 - 5.20 M/cumm [facility] MCV 92.6 81.3 - 96.4 fL [facility] MCH 30.0 27.1 - 33.3 pg [facility] MCHC 32.4 32.3 - 35.7 g/dL [facility] RDW CV 14.6 11.1 - 14.9 % [facility] RDW SD 49.1(H) 35.7 - 48.1 fL [facility] NRBC abs 0.00 0.00 - 0.01 K/cumm [facility] Blood 09/20/2024 6:29 AM FACTORY LABORER 09/20/2024 7:32 AM FACTORY LABORER Galo Smith MD LAB BLOOD ORDERABLES Fi nal Result Performing Organization Address City/[facility] Co de Phone Number [address] [address] * Magnesium (09/20/2024 6:29 AM FACTORY LABORER) Pathologist [facility] Magnesium 2.4 1.4 - 2.5 mg/dL Blood 09/20/2024 6:29 AM FACTORY LABORER 09/20/2024 7:32 AM FACTORY LABORER Galo Smith MD LAB BLOOD ORDERABLES Fi nal Result Performing Organization Address [facility] Co de Phone Number [address] [address] * Lipase (09/20/2024 6:29 AM FACTORY LABORER) Pathologist [facility] Lipase 56 10 - 99 Units/L Blood 09/20/2024 6:29 AM FACTORY LABORER 09/20/2024 7:32 AM FACTORY LABORER Galo Smith MD LAB BLOOD ORDERABLES Fi nal Result Performing Organization Address [facility] Co de Phone Number [address] [address] * (ABNORMAL) Hepatic function panel (09/20/2024 6:29 AM FACTORY LABORER) Bilirubin, total 0.3 0.1 - 1.2 mg/dL Bilirubin, direct 0.1 0.1 - 0.3 mg/dL [facility] Protein, pl 7.8 6.5 - 8.5 g/dL [facility] Albumin 4.2 3.5 - 5.0 g/dL [facility] Alk phos 145(H) 40 - 130 Units/L [facility] ALT 15 7 - 45 Units/L [facility] AST 24 10 - 45 Units/L [facility] Blood 09/20/2024 6:2 9 AM FACTORY LABORER 09/20/2024 7:32 AM FACTORY LABORER Galo Smith MD LAB BLOOD ORDERABLES Fi nal Result Performing Organization Address [facility] Co de Phone Number [facility] [address] [facility] [place] [address] * (ABNORMAL) Basic metabolic panel (09/20/2024 6:29 AM FACTORY LABORER) [facility] Sodium 136 135 - 145 mmol/L Potassium, pl 4.4 3.3 - 4.9 mmol/L [facility] Chloride 92(L) 97 - 110 mmol/L [facility] CO2 29 22 - 32 mmol/L [facility] Anion gap 15 2 - 15 mmol/L [facility] BUN 67(H) 6 - 25 mg/dL [facility] Creatinine 6.77(H) 0.60 - 1.10 mg/dL [facility] Glucose 194 70 - 199 mg/dL [facility] Comment: Interpretive Data Fasting glucose >/= [...] 2022. Calcium 8.7 8.5 - 10.3 mg/dL [facility] Blood 09/20/2024 6:29 AM FACTORY LABORER 09/20/2024 7:32 AM FACTORY LABORER Result [facility] Galo Smith MD LAB BLOOD ORDERABLES Fi nal Result Performing Organization Address [facility]/ZIP Co de Phone Number [address] [place] [address] * POCT glucose (09/20/2024 6:19 AM FACTORY LABORER) Glucose, POC 196 70 - 199 mg/dL Glucose comment 1 Use This Result [facility] Glucose comment 2 RN/MD Notified YAW Blood 09/20/2024 6:1 9 AM FACTORY LABORER 09/20/2024 6:19 AM FACTORY LABORER Galo Smith MD LAB POCT ORDERABLES - D EVICE Final Result Performing Organization Address City/[facility]/ZIP Co de Phone Number YAW [address] [place] [address] * POCT glucose (09/19/2024 8:26 PM FACTORY LABORER) Glucose, POC 149 70 - 199 mg/dL Glucose comment 1 Use This Result [facility] Glucose comment 2 RN/MD Notified [facility] Blood 09/19/2024 8:26 PM FACTORY LABORER 09/19/2024 8:26 PM FACTORY LABORER Galo Smith MD LAB POCT ORDERABLES - D EVICE Final Result Performing Organization Address City/[facility] Co de Phone Number [id number] [place] [address] * POCT glucose (09/19/2024 4:43 PM FACTORY LABORER) Glucose, POC 177 70 - 199 mg/dL Blood 09/19/2024 4:43 PM FACTORY LABORER 09/19/2024 4:43 PM FACTORY LABORER Galo Smith MD LAB POCT ORDERABLES - D EVICE Final Result Performing Organization Address [facility] Co de Phone Number [id number] [place] [address] * CT Abdomen Pelvis WO Contrast (09/19/2024 1:08 PM FACTORY LABORER) Anatomical Region Laterality Modality Body N/A Computed Tomogra phy 09/19/2024 1:14 PM FACTORY LABORER Narrative 09/19/2024 1:18 PM FACTORY LABORER EXAM DESCRIPTION: CT ABDOMEN PELVIS WO CONTRAST [...] definite evidence of diverticulitis. There is a tunf-tw-gjnaxzes amount of retained fecal debris in the [...] mild enteritis of infectious or inflammatory etiology. Flov-kl-sgkvvmes amount of retained fecal debris in the colon, which raises the concern for constipation. Scattered colonic diverticula without definite evidence of diverticulitis. Normal appendix. THIS IS AN ELECTRONICALLY VERIFIED FINAL REPORT 09/19/2024 1:18 PM - Electronically signed by Romi Lewis D.O. PS T: Report ID: [id number] [facility] Location: [id number] Procedure Note Romi Lewis, DO - 09/19/2024 [...] definite evidence of diverticulitis. There is a nylx-gj-dhdpqfpt amount of retained fecal debris in the [...] versus mild enteritis of infectious or inflammatoryetiology. Xyyj-ro-jatxfvlj amount of retained fecal debris in the colon, whichraises the concern for constipation. Scattered colonic diverticula without definite evidence ofdiverticulitis. Normal appendix. THIS IS AN ELECTRONICALLY VERIFIED FINAL REPORT 09/19/2024 1:18 PM - Electronically signed by Romi SHEPPARD T: Report ID: [id number] [facility] Location: [place] [id number] us Galo Smith MD IMG CT PROCEDURES Final Result * POCT glucose (09/19/2024 11:26 AM FACTORY LABORER) Glucose, POC 100 70 - 199 mg/dL Blood 09/19/2024 11:2 6 AM FACTORY LABORER 09/19/2024 11:26 AM FACTORY LABORER us Galo Smith MD LAB POCT ORDERABLES - D EVICE Final Result Performing Organization Address [facility] Co de Phone Number [address] [employer] [place] [address] * (ABNORMAL) hCG, blood, quantitative (09/19/2024 10:48 AM FACTORY LABORER) Pathologist [facility] hCG, quant 6.0(H) 0.0 - 5.0 IUnits/L Comment: Interpretive Data Male: < 5 IU/L Non- premenopausal Female: <5 IU/L The [employer] hCG Beta Quant assay procedure was used. Results from different manufacturers or methods may not be comparable. Serial testing should be performed using the same method. Interpretive Data was last revised on 2023 Blood 09/19/2024 10:4 8 AM FACTORY LABORER 09/19/2024 10:51 AM FACTORY LABORER us Galo Smith MD LAB BLOOD ORDERABLES Fi nal Result Performing Organization Address City/[facility]/ZIP Co de Phone Number [address] [place] [place] [address] * POCT glucose (09/19/2024 8:28 AM FACTORY LABORER) [facility] Glucose, POC 87 70 - 199 mg/dL Blood 09/19/2024 8:28 AM FACTORY LABORER 09/19/2024 8:28 AM FACTORY LABORER Galo Smith MD LAB POCT ORDERABLES - D EVICE Final Result Performing Organization Address City/[facility]/ZIP Co de Phone Number YAW [address] [place] [address] * (ABNORMAL) eGFR (09/19/2024 6:44 AM FACTORY LABORER) [facility] eGFR 10(L) >=60 mL/min/1. 73 m2 [...] last reviewed 2021. Blood 09/19/2024 6:44 AM FACTORY LABORER 09/19/2024 7:07 AM FACTORY LABORER Rory Harper MD LAB BLOOD ORDERABLES Fin al Result Performing Organization Address City/[facility]/ZIP Co de Phone Number YAW [address] Department [place] [address] * Differential, auto (09/19/2024 6:44 AM FACTORY LABORER) Neutrophil abs 3.7 1.5 - 6.5 K/cumm Imm gran abs 0.0 0.0 - 0.1 K/cumm [facility] Lymphocyte abs 1.1 0.8 - 3.3 K/cumm [facility] Monocyte abs 0.4 0.2 - 0.8 K/cumm [facility] Eosinophil abs 0.1 0.0 - 0.5 K/cumm [facility] Basophil abs 0.0 0.0 - 0.1 K/cumm [facility] Neutrophil pct 69.4 % [facility] Comment: Interpretive Data Percent cell count reference ranges are not reported, since discordance with absolute values may lead to misinterpretation of CBC data. Current Interpretive Data was last revised on 2017. Imm gran pct 0.2 % [facility] Comment: Interpretive Data Percent cell count reference ranges are not reported, since discordance with absolute values may lead to misinterpretation of CBC data. Current Interpretive Data was last revised on 2017. Lymphocyte pct 20.5 % [facility] Comment: Interpretive Data Percent cell count reference ranges are not reported, since discordance with absolute values may lead to misinterpretation of CBC data. Current Interpretive Data was last revised on 2017. Monocyte pct 7.4 % [facility] Comment: Interpretive Data Percent cell count reference ranges are not reported, since discordance with absolute values may lead to misinterpretation of CBC data. Current Interpretive Data was last revised on 2017. Eosinophil pct 1.7 % [facility] Comment: Interpretive Data Percent cell count reference ranges are not reported, since discordance with absolute values may lead to misinterpretation of CBC data. Current Interpretive Data was last revised on 2017. Basophil pct 0.8 % [facility] Comment: Interpretive Data Percent cell count reference ranges are not reported, since discordance with absolute values may lead to misinterpretation of CBC data. Current Interpretive Data was last revised on 2017. Blood 09/19/2024 6:44 AM FACTORY LABORER 09/19/2024 7:07 AM FACTORY LABORER us Rory Harper MD LAB BLOOD ORDERABLES Fin al Result [address] [address] * (ABNORMAL) CBC with auto differential (09/19/2024 6:44 AM FACTORY LABORER) [facility] WBC 5.3 3.8 - 9.9 K/cumm Hgb 13.1 11.9 - 15.5 g/dL [facility] Hct 40.4 35.6 - 45.5 % [facility] Plt 171 150 - 400 K/cumm [facility] MPV 10.9 9.1 - 12.3 fL [facility] RBC 4.42 3.90 - 5.20 M/cumm [facility] MCV 91.4 81.3 - 96.4 fL [facility] MCH 29.6 27.1 - 33.3 pg [facility] MCHC 32.4 32.3 - 35.7 g/dL [facility] RDW CV 14.7 11.1 - 14.9 % [facility] RDW SD 49.4(H) 35.7 - 48.1 fL [facility] NRBC abs 0.00 0.00 - 0.01 K/cumm [facility] Blood 09/19/2024 6:44 AM FACTORY LABORER 09/19/2024 7:07 AM FACTORY LABORER Rory Harper MD LAB BLOOD ORDERABLES Fin al Result Performing Organization Address [facility] Co de Phone Number [address] [address] * (ABNORMAL) Phosphorus (09/19/2024 6:44 AM FACTORY LABORER) [facility] Phosphorus, pl 6.0(H) 2.3 - 4.5 mg/dL Blood 09/19/2024 6:44 AM FACTORY LABORER 09/19/2024 7:07 AM FACTORY LABORER Rory Harper MD LAB BLOOD ORDERABLES Fin al Result Performing Organization Address [facility] Co de Phone Number [address] [address] * Magnesium (09/19/2024 6:44 AM FACTORY LABORER) Pathologist [facility] Magnesium 2.3 1.4 - 2.5 mg/dL Blood 09/19/2024 6:44 AM FACTORY LABORER 09/19/2024 7:07 AM FACTORY LABORER us Rory Harper MD LAB BLOOD ORDERABLES Fin al Result [facility] [address] [facility] Department [place] [address] * (ABNORMAL) Comprehensive metabolic panel (09/19/2024 6:44 AM FACTORY LABORER) [facility] Sodium 138 135 - 145 mmol/L Potassium, pl 5.0(H) 3.3 - 4.9 mmol/L [facility] Chloride 96(L) 97 - 110 mmol/L [facility] CO2 29 22 - 32 mmol/L [facility] Anion gap 13 2 - 15 mmol/L [facility] BUN 42(H) 6 - 25 mg/dL [facility] Creatinine 5.01(H) 0.60 - 1.10 mg/dL [facility] Glucose 95 70 - 199 mg/dL [facility] Comment: Interpretive Data Fasting glucose >/= [...] 2022. Calcium 8.6 8.5 - 10.3 mg/dL [facility] Bilirubin, total 0.4 0.1 - 1.2 mg/dL [facility] Protein, pl 7.2 6.5 - 8.5 g/dL [facility] Albumin 3.8 3.5 - 5.0 g/dL [facility] Alk phos 138(H) 40 - 130 Units/L [facility] ALT 15 7 - 45 Units/L [facility] AST 24 10 - 45 Units/L [facility] Blood 09/19/2024 6:44 AM FACTORY LABORER 09/19/2024 7:07 AM FACTORY LABORER Rory Harper MD LAB BLOOD ORDERABLES Fin al Result Performing Organization Address City/[facility]/ZIP Co de Phone Number [id number] [place] [address] * POCT glucose (09/18/2024 7:37 PM FACTORY LABORER) [facility] Signature Glucose, POC 153 70 - 199 mg/dL Glucose comment 1 Use This Result [facility] Blood 09/18/2024 7:37 PM FACTORY LABORER 09/18/2024 7:37 PM FACTORY LABORER Rory Harper MD LAB POCT ORDERABLES - DE VICE Final Result Performing Organization Address [facility] Co de Phone Number [address] [address] * US Kidney Complete (09/18/2024 7:21 PM FACTORY LABORER) Anatomical Region Laterality Modality Kidney N/A Ultrasound 09/18/2024 9:32 PM FACTORY LABORER Narrative 09/18/2024 9:33 PM FACTORY LABORER EXAM DESCRIPTION: US KIDNEY COMPLETE REASON FOR [...] Chase Cervantes M.D. AR T: Report ID: [id number] Reading Location: [id number] Procedure Note Chase Cervantes MD - 09/18/2024 [...] Chase Cervantes M.D. AR T: Report ID: [id number] Reading Location: [id number] us Eduarda Batista ABSORPTION AND ADSORPTION ENGINEER IMG US PROCEDURES Final Resu lt * (ABNORMAL) BUN (09/18/2024 6:45 PM FACTORY LABORER) BUN 30(H) 6 - 25 mg/dL Blood 09/18/2024 6:45 PM FACTORY LABORER 09/18/2024 6:59 PM FACTORY LABORER Narrative YAW - 09/18/2024 7:25 PM FACTORY LABORER Pre-Dialysis us Amrik Mata MD LAB BLOOD ORDERABLES Final Resu lt YAW [address] [facility] Department [place] [address] * Potassium (09/18/2024 6:45 PM FACTORY LABORER) Potassium, pl 3.9 3.3 - 4.9 mmol/L Blood 09/18/2024 6:45 PM FACTORY LABORER 09/18/2024 6:59 PM FACTORY LABORER Eduarda Batista NP LAB BLOOD ORDERABLES Final R esult Performing Organization Address [facility] Co de Phone Number [address] [place] [address] * POCT glucose (09/18/2024 5:58 PM FACTORY LABORER) Glucose, POC 86 70 - 199 mg/dL Glucose comment 1 Use This Result [facility] Glucose comment 2 RN/MD Notified [facility] Blood 09/18/2024 5:58 PM FACTORY LABORER 09/18/2024 5:58 PM FACTORY LABORER Result [facility] Rory Harper MD LAB POCT ORDERABLES - DE VICE Final Result Performing Organization Address [facility] Co de Phone Number [address] [place] [address] * (ABNORMAL) Potassium (09/18/2024 2:00 PM FACTORY LABORER) Potassium, pl 5.0(H) 3.3 - 4.9 mmol/L Blood 09/18/2024 2:00 PM FACTORY LABORER 09/18/2024 2:56 PM FACTORY LABORER Amrik Mata MD LAB BLOOD ORDERABLES Final Resu lt Performing Organization Address [facility] Co de Phone Number [address] [place] [place] [address] * POCT glucose (09/18/2024 1:28 PM FACTORY LABORER) Glucose, POC 129 70 - 199 mg/dL Glucose comment 1 Use This Result [facility] Blood 09/18/2024 1:28 PM FACTORY LABORER 09/18/2024 1:28 PM FACTORY LABORER Pablo Gallego MD LAB POCT ORDERABLES - DEVICE Final Result Performing Organization Address City/[facility] Co de Phone Number YAW [address] [address] * POCT glucose (09/18/2024 11:58 AM FACTORY LABORER) Glucose, POC 144 70 - 199 mg/dL Glucose comment 1 Use This Result [facility] Glucose comment 2 RN/MD Notified [facility] Blood 09/18/2024 11:5 8 AM FACTORY LABORER 09/18/2024 11:58 AM FACTORY LABORER Pablo Gallego MD LAB POCT ORDERABLES - DEVICE Final Result Performing Organization Address [facility] de Phone Number YAW [address] [address] * (ABNORMAL) Urinalysis reflex to microscopic and culture Urine (09/18/2024 10:15 AM FACTORY LABORER) Color, ur Other(A) Yellow Clarity, ur Turbid(A) Clear [facility] Specific gravity, ur 1.017 1.003 - 1.030 [facility] pH, urine 7.0 [facility] Comment: Interpretive Data U rine pH is affected by diet, medications, systemic acid-base disturbances, and renal tubular function. pH may affect urinary stone formation. For example, urine pH below 6.0 may help reduce the tendency for calcium phosphate stones and pH greater than 6.0 may reduce the tendency for uric acid stone formation. Source: [facility] Current Interpretive Data was last revised on 2017 Protein, ur ql 3+(A) Negative [facility] Glucose, ur ql 1+(A) Negative [facility] Ketones, ur Negative Negative [facility] Bilirubin, ur Negative Negative [facility] Blood, ur 2+(A) Negative [facility] Urobilinogen, ur <2.0 <2.0 mg/dL [facility] Nitrite, ur Negative Negative [facility] Leukocyte esterase, ur 4+(A) Negative [facility] UA reflex comment Reflex to microscopic UA will be performed. [facility] Urine 09/18/2024 10:1 5 AM FACTORY LABORER 09/18/2024 10:24 AM FACTORY LABORER Pablo Gallego MD LAB MICROBIOLOGY - GENERAL ORDERABLES Final Result Performing Organization Address [facility] de Phone Number YAW [address] [address] * (ABNORMAL) Urinalysis, microscopic only (09/18/2024 10:15 AM FACTORY LABORER) WBC, ur >50(A) 0 - 5 /HPF RBC, ur 21-50(A) 0 - 2 /HPF YAW Epithelial cells, squamous, ur 1-5 0 - 5 /HPF YAW Bacteria, ur 4+(A) YAW Yeast, ur 4+(A) YAW Culture Reflex Comment Reflex to urine culture will be performed. YAW Urine 09/18/2024 10:1 5 AM FACTORY LABORER 09/18/2024 10:24 AM FACTORY LABORER Pablo Gallego MD LAB URINE ORDERABLE S Final Result Performing Organization Address [facility] de Phone Number YAW [address] [address] * (ABNORMAL) Urine culture Urine (09/18/2024 10:15 AM FACTORY LABORER) Report Final Report: Greater than or equal to 100,000 colonies/mL of Klebsiella pneumoniae Greater than or equal to 100,000 colonies/mL of Klebsiella pneumoniae #2 (.) Comment:Testing performed by : [facility], [address] [facility], [place]., [address] Organism KLEBSIELLA PNEUMONIAE [facility] Organism KLEBSIELLA PNEUMONIAE [facility] Urine 09/18/2024 10:1 5 AM FACTORY LABORER 09/18/2024 1:55 PM FACTORY LABORER Narrative YAW - 09/21/2024 10:23 AM FACTORY LABORER Urine culture reflexed based upon urinalysis results. Testing performed by [facility] ([phone]) Organism Antibiotic Method Susceptibility Klebsiella pneumoniae Ampicillin [...] INTERPRETATION Susceptible Klebsiella pneumoniae Cefdinir INTERPRETATION Susceptible Pablo Gallego MD LAB MICROBIOLOGY - GENERAL ORDERABLES Final Result [facility] [address] [facility] Department [place] [address] * (ABNORMAL) POC Blood Gas and Chemistries, Venous - (09/18/2024 10:12 AM FACTORY LABORER) Oxy Hgb, ruby POC 80.5(L) 90.0 - 95.0 % Hemoglobin, ruby POC 13.4 11.9 - 15.5 g/dL [facility] Sodium, ruby POC 136 135 - 145 mmol/L [facility] Potassium, ruby POC 5.6(H) 3.3 - 4.9 mmol/L [facility] Comment: Interpretive Data This method is not able to assess for hemolysis, which may falsely increase potassium concentrations. If further testing is needed to evaluate this result, consider in-laboratory plasma potassium. Current Interpretive Data was last revised on 2022. Glucose, ruby POC 167 70 - 199 mg/dL [facility] Ionized Calcium, ruby POC 3.82(L) 4.50 - 5.10 mg/dL [facility] Lactate, ruby POC 0.7 0.7 - 2.0 mmol/L YAW Blood 09/18/2024 10:1 2 AM FACTORY LABORER 09/18/2024 10:12 AM FACTORY LABORER Pablo Gallego MD LAB POCT ORDERABLES - DEVICE Final Result Performing Organization Address [facility] Co de Phone Number YAW [address] [facility] Department [place] [address] * ECG 12 lead (09/18/2024 9:44 AM FACTORY LABORER) Ventricular Rate EKG/Min 77 BPM [facility] Atrial Rate 77 BPM [facility] IN-Interval (MSEC) 168 ms [facility] QRS-Interval (MSEC) 88 ms [facility] QT-Interval (MSEC) 382 ms [facility] QTc 432 ms [facility] P [place] 52 degrees [facility] R [place] -5 degrees [facility] T [place] 47 degrees [facility] Diagnosis Normal sinus rhythm Possible Left atrial enlargement Borderline ECG When compared with ECG of 11-SEP-2024 08:19, No significant change was found Confirmed by GUANACO ROBERTS M.D. ([id number]) on 09/18/2024 11:23:35 AM [facility] 09/18/2024 9:44 AM FACTORY LABORER 09/18/2024 11:23 AM FACTORY LABORER Pablo Gallego MD ECG ORDERABLES Fin al Result Performing Organization Address [facility] Co de Phone Number [facility] * (ABNORMAL) eGFR (09/18/2024 9:38 AM FACTORY LABORER) eGFR 6(L) >=60 mL/min/1. 73 m2 Comment: [...] last reviewed 2021. Blood 09/18/2024 9:38 AM FACTORY LABORER 09/18/2024 9:41 AM FACTORY LABORER Raquel GRAVES LAB BLOOD ORDERABLES Final Result [facility] [address] [facility] Department [place] [address] * (ABNORMAL) Differential, auto (09/18/2024 9:38 AM FACTORY LABORER) Neutrophil abs 6.8(H) 1.5 - 6.5 K/cumm Imm gran abs 0.0 0.0 - 0.1 K/cumm [facility] Lymphocyte abs 1.0 0.8 - 3.3 K/cumm [facility] Monocyte abs 0.4 0.2 - 0.8 K/cumm [facility] Eosinophil abs 0.1 0.0 - 0.5 K/cumm [facility] Basophil abs 0.1 0.0 - 0.1 K/cumm [facility] Neutrophil pct 81.6 % [facility] Comment: Interpretive Data Percent cell count reference ranges are not reported, since discordance with absolute values may lead to misinterpretation of CBC data. Current Interpretive Data was last revised on 2017. Imm gran pct 0.2 % [facility] Comment: Interpretive Data Percent cell count reference ranges are not reported, since discordance with absolute values may lead to misinterpretation of CBC data. Current Interpretive Data was last revised on 2017. Lymphocyte pct 11.6 % [facility] Comment: Interpretive Data Percent cell count reference ranges are not reported, since discordance with absolute values may lead to misinterpretation of CBC data. Current Interpretive Data was last revised on 2017. Monocyte pct 4.3 % [facility] Comment: Interpretive Data Percent cell count reference ranges are not reported, since discordance with absolute values may lead to misinterpretation of CBC data. Current Interpretive Data was last revised on 2017. Eosinophil pct 1.3 % [facility] Comment: Interpretive Data Percent cell count reference ranges are not reported, since discordance with absolute values may lead to misinterpretation of CBC data. Current Interpretive Data was last revised on 2017. Basophil pct 1.0 % [facility] Comment: Interpretive Data Percent cell count reference ranges are not reported, since discordance with absolute values may lead to misinterpretation of CBC data. Current Interpretive Data was last revised on 2017. Blood 09/18/2024 9:38 AM FACTORY LABORER 09/18/2024 9:42 AM FACTORY LABORER Raquel GRAVES LAB BLOOD ORDERABLES Final Result [place] [address] [facility] Department [place] [address] * (ABNORMAL) CBC with auto differential (09/18/2024 9:38 AM FACTORY LABORER) WBC 8.4 3.8 - 9.9 K/cumm Hgb 13.9 11.9 - 15.5 g/dL [facility] Hct 42.9 35.6 - 45.5 % [facility] Plt 178 150 - 400 K/cumm [facility] MPV 10.9 9.1 - 12.3 fL [facility] RBC 4.66 3.90 - 5.20 M/cumm [facility] MCV 92.1 81.3 - 96.4 fL [facility] MCH 29.8 27.1 - 33.3 pg [facility] MCHC 32.4 32.3 - 35.7 g/dL [facility] RDW CV 14.7 11.1 - 14.9 % [facility] RDW SD 50.0(H) 35.7 - 48.1 fL [facility] NRBC abs 0.00 0.00 - 0.01 K/cumm [facility] Blood 09/18/2024 9:38 AM FACTORY LABORER 09/18/2024 9:42 AM FACTORY LABORER Pablo Gallego MD LAB BLOOD ORDERABLE S Final Result Performing Organization Address [facility] de Phone Number [address] [place] [address] * (ABNORMAL) Phosphorus (09/18/2024 9:38 AM FACTORY LABORER) Pathologist [facility] Phosphorus, pl 6.5(H) 2.3 - 4.5 mg/dL Blood 09/18/2024 9:38 AM FACTORY LABORER 09/18/2024 9:41 AM FACTORY LABORER Pablo Gallego MD LAB BLOOD ORDERABLE S Final Result Performing Organization Address [facility] de Phone Number [address] [place] [address] * Magnesium (09/18/2024 9:38 AM FACTORY LABORER) Pathologist [facility] Magnesium 2.4 1.4 - 2.5 mg/dL Blood 09/18/2024 9:38 AM FACTORY LABORER 09/18/2024 9:41 AM FACTORY LABORER Pablo Gallego MD LAB BLOOD ORDERABLE S Final Result Performing Organization Address [facility] de Phone Number [address] [place] [address] * (ABNORMAL) Comprehensive metabolic panel (09/18/2024 9:38 AM FACTORY LABORER) Sodium 139 135 - 145 mmol/L Potassium, pl 6.6(C) 3.3 - 4.9 mmol/L [facility] Comment:Hemolyzed; Potassium value may be falsely elevated by as much as 1.0 mmol/L. Suggest redraw and reanalysis. Critical Result called to and read back by GLORIA Bryant [email or web address], DATE: 2024-09-18 10:13:30 BY: Casey [email or web address] Chloride 99 97 - 110 mmol/L [facility] CO2 26 22 - 32 mmol/L [facility] Anion gap 14 2 - 15 mmol/L [facility] BUN 77(H) 6 - 25 mg/dL [facility] Creatinine 7.20(H) 0.60 - 1.10 mg/dL [facility] Glucose 177 70 - 199 mg/dL [facility] Comment: Interpretive Data Fasting glucose >/= [...] 2022. Calcium 8.8 8.5 - 10.3 mg/dL [facility] Bilirubin, total 0.4 0.1 - 1.2 mg/dL [facility] Protein, pl 8.4 6.5 - 8.5 g/dL [facility] Albumin 4.5 3.5 - 5.0 g/dL [facility] Alk phos 156(H) 40 - 130 Units/L [facility] ALT 19 7 - 45 Units/L [facility] AST 27 10 - 45 Units/L [facility] Blood 09/18/2024 9:38 AM FACTORY LABORER 09/18/2024 9:41 AM FACTORY LABORER us Pablo Gallego MD LAB BLOOD ORDERABLE S Final Result [facility] [address] [facility] Department [place] [address] * US Vein Mapping Duplex Upper Extremity Bilateral (09/16/2024 1:28 PM FACTORY LABORER) Anatomical Region Laterality Modality Vascular Bilateral Ultrasound 09/16/2024 11:0 3 AM FACTORY LABORER Narrative 09/16/2024 1:31 PM FACTORY LABORER Upper Extremity Vein Mapping Report Patient Name: JENNIFER CARTER : 1975 (49y 7m) Gender: F Study Date: 09/16/2024 11:03:15 AM Sweet Potato Disintegrator: Vikki Mcdonald Provider: DON SANTOS Quality: Adequate [...] By: Don Santos MD 09/16/2024 12:38:31 PM FACTORY LABORER Procedure Note Don Santos MD - 09/16/2024 Upper Extremity Vein Mapping Report Patient Name: JENNIFER CARTER : 1975 (49y 7m) Gender: F Study Date: 09/16/2024 11:03:15 AM Sweet Potato Disintegrator: Vikki Mcdonald Provider: DON SATNOS Quality: Adequate Ref Provider: DON SANTOS PROCEDURES: [...] By: Don Santos MD 09/16/2024 12:38:31 PM FACTORY LABORER us Don Santos MD IMG US PROCEDURES Final Re sult * (ABNORMAL) Urinalysis reflex to microscopic and culture Urine (09/11/2024 3:43 PM FACTORY LABORER) Color, ur Other(A) Yellow Clarity, ur Turbid(A) Clear [facility] Specific gravity, ur 1.013 1.003 - 1.030 [facility] pH, urine 7.0 [facility] Comment: Interpretive Data U rine pH is affected by diet, medications, systemic acid-base disturbances, and renal tubular function. pH may affect urinary stone formation. For example, urine pH below 6.0 may help reduce the tendency for calcium phosphate stones and pH greater than 6.0 may reduce the tendency for uric acid stone formation. Source: [facility] [place] [employer] Current Interpretive Data was last revised on 2017 Protein, ur ql 3+(A) Negative [facility] Glucose, ur ql Negative Negative [facility] Ketones, ur Negative Negative [facility] Bilirubin, ur Negative Negative [facility] Blood, ur 2+(A) Negative [facility] Urobilinogen, ur <2.0 <2.0 mg/dL [facility] Nitrite, ur Negative Negative [facility] Leukocyte esterase, ur 4+(A) Negative [facility] UA reflex comment Reflex to microscopic UA will be performed. [facility] Urine 09/11/2024 3:43 PM FACTORY LABORER 09/11/2024 3:48 PM FACTORY LABORER Jesu Chew MD LAB MICROBIOLOGY - GENERAL ORDER INOCENTE Final Result Performing Organization Address [facility] de Phone Number [address] [address] * (ABNORMAL) Urinalysis, microscopic only (09/11/2024 3:43 PM FACTORY LABORER) WBC, ur >50(A) 0 - 5 /HPF RBC, ur 11-20(A) 0 - 2 /HPF [facility] Epithelial cells, squamous, ur 6-10(A) 0 - 5 /HPF [facility] Comment:Suggestive of contam ination. Consider recollection by clean catch. Bacteria, ur 2+(A) [facility] Culture Reflex Comment Reflex to urine culture will be performed. [facility] Urine 09/11/2024 3:43 PM FACTORY LABORER 09/11/2024 3:48 PM FACTORY LABORER Jesu Chew MD LAB URINE ORDERABLES Final Resul t Performing Organization Address [facility] de Phone Number [address] [address] * (ABNORMAL) Urine culture Urine (09/11/2024 3:43 PM FACTORY LABORER) Report Final Report: Greater than or equal to 100,000 colonies/mL of Klebsiella pneumoniae The susceptibility pattern of this Klebsiella pneumoniae indicates the possible production of an extended spectrum beta lactamase (ESBL). Patients infected with ESBL-producing organisms require contact isolation precautions. For therapeutic options for this organism, please contact infectious diseases. (.) Comment:Testing performed by : [facility], [address] [facility], [place]., [address] Organism KLEBSIELLA PNEUMONIAE [facility] Urine 09/11/2024 3:43 PM FACTORY LABORER 09/11/2024 8:58 PM FACTORY LABORER Narrative [facility] - 09/15/2024 3:33 PM FACTORY LABORER Urine culture reflexed based upon urinalysis results. Testing performed by [facility] ([phone]) Organism Antibiotic Method Susceptibility Klebsiella pneumoniae Ampicillin [...] ORDER INOCENTE Final Result Performing Organization Address City/[facility]/ZIP Co de Phone Number [address] [employer] [place] [address] * POCT glucose (09/11/2024 3:12 PM FACTORY LABORER) [facility] Glucose, POC 156 70 - 199 mg/dL Glucose comment 1 Use This Result [facility] Glucose comment 2 RN/MD Notified [facility] Blood 09/11/2024 3:12 PM FACTORY LABORER 09/11/2024 3:12 PM FACTORY LABORER Antonio George MD LAB POCT ORDERABLES - D EVICE Final Result Performing Organization Address City/[facility] Co de Phone Number [address] [place] [address] * Hepatitis B surface antibody (immune status) Blood (09/11/2024 10:58 AM FACTORY LABORER) [facility] HBsAb (immune status) Reactive Comment: Interpretive Data [...] L YAW Blood 09/11/2024 10:5 8 AM FACTORY LABORER 09/11/2024 11:13 AM FACTORY LABORER Forrest Saucedo MD LAB MICROBIOLOGY - GENERAL OR DERABLES Final Result Performing Organization Address [facility] Co de Phone Number [address] [place] [address] * Hepatitis B Surface Antigen Blood (09/11/2024 10:58 AM FACTORY LABORER) HepBsAg Nonreactive Nonreactive Blood 09/11/2024 10:5 8 AM FACTORY LABORER 09/11/2024 11:13 AM FACTORY LABORER Forrest Saucedo MD LAB MICROBIOLOGY - GENERAL OR DERABLES Final Result Performing Organization Address [facility] Co de Phone Number [address] [address] * POCT glucose (09/11/2024 10:43 AM FACTORY LABORER) Glucose, POC 77 70 - 199 mg/dL Glucose comment 1 Use This Result [facility] Blood 09/11/2024 10:4 3 AM FACTORY LABORER 09/11/2024 10:43 AM FACTORY LABORER Jesu Chew MD LAB POCT ORDERABLES - DEVICE Fin al Result Performing Organization Address [facility] Co de Phone Number [address] [place] [address] * POCT glucose (09/11/2024 10:07 AM FACTORY LABORER) Glucose, POC 97 70 - 199 mg/dL Glucose comment 1 Use This Result Y[facility] Blood 09/11/2024 10:0 7 AM FACTORY LABORER 09/11/2024 10:07 AM FACTORY LABORER Jesu Chew MD LAB POCT ORDERABLES - DEVICE Fin al Result Performing Organization Address [facility] Co de Phone Number [address] [place] [address] * (ABNORMAL) Potassium (09/11/2024 10:05 AM FACTORY LABORER) Pathologist [facility] Potassium, pl 6.0(H) 3.3 - 4.9 mmol/L Blood 09/11/2024 10:0 5 AM FACTORY LABORER 09/11/2024 10:11 AM FACTORY LABORER Jesu Chew MD LAB BLOOD ORDERABLES Final Resul t Performing Organization Address [facility] Phone Number [address] [address] * XR Chest 1 Vw Portable (09/11/2024 9:00 AM FACTORY LABORER) Anatomical Region Laterality Modality Body, Chest N/A Computed Radiogr aphy 09/11/2024 9:13 AM FACTORY LABORER Narrative 09/11/2024 9:16 AM FACTORY LABORER EXAM DESCRIPTION: XR CHEST 1 VIEW REASON [...] John Olivia M.D. NS T: Report ID: [id number] [place] Location: [place] [address] Procedure Note John Olivia MD - 09/11/2024 [...] signed by John CHOW T: Report ID: [id number] Reading Location: [place] [address] Jesu Chew MD IMG XR PROCEDURES Final Result * (ABNORMAL) POC Blood Gas and Chemistries, Venous - (09/11/2024 8:35 AM FACTORY LABORER) pH,ruby POC 7.32 7.32 - 7.43 pCO2, ruby POC 51(H) 40 - 50 mmHg YAW pO2,ruby POC 34 mmHg YAW Comment: Interpretive Data No reference range established. Current interpretive data was last revised 2020. HCO3, ruby (Calc) POC 26 20 - 30 mmol/L Y[facility] Base excess, ruby POC 0 mmol/L Y[facility] Comment: Interpretive Data No reference range established. Current interpretive data was last revised 2020. Blood 09/11/2024 8:35 AM FACTORY LABORER 09/11/2024 8:35 AM FACTORY LABORER Jesu Chew MD LAB POCT ORDERABLES - DEVICE Fin al Result Performing Organization Address City/[facility]/ZIP Co de Phone Number [facility] [address] [facility] [place] [address] * ECG 12 lead (09/11/2024 8:19 AM FACTORY LABORER) Ventricular Rate EKG/Min 77 BPM [facility] Atrial Rate 77 BPM [facility] IN-Interval (MSEC) 172 ms [facility] QRS-Interval (MSEC) 92 ms [facility] QT-Interval (MSEC) 398 ms [facility] QTc 450 ms [facility] P [place] 44 degrees [facility] R [place] 6 degrees [facility] T [place] 37 degrees [facility] Diagnosis Normal sinus rhythm Normal ECG When compared with ECG of 25-AUG-2024 08:51 Confirmed by GUANACO ROBERTS M.D. ([id number]) on 09/11/2024 1:31:09 PM [facility] 09/11/2024 8:19 AM FACTORY LABORER 09/11/2024 1:31 PM FACTORY LABORER Jesu Chew MD ECG ORDERABLES Final Result Performing Organization Address [facility] Co de Phone Number [facility] * Influenza A/B, RSV, and COVID-19 PCR Nasopharyngeal (09/11/2024 8:18 AM FACTORY LABORER) COVID-19 RNA Negative Negative Influenza A RNA Negative Negative YAW Influenza B RNA Negative Negative YAW RSV RNA Negative Negative YAW Comment: Interpretive data: Testing performed by [facility]. This test is performed using the Sonatype Xpert Xpress CoV-2/Flu/RSV plus assay. This is a multiplex, real-time reverse transcriptase PCR assay intended for the qualitative detection of nucleic acid from SARS-CoV-2, influenza A, influenza B, and respiratory syncytial virus. This assay has been cleared by the [place] Food and Drug administration. The performance characteristics have been verified by the [facility]. Results must be considered in the clinical context, and a negative result does not rule out infection. Interpretive Data last revised 2023 Nasopharyngeal 09/11/2024 8: 18 AM FACTORY LABORER 09/11/2024 8:22 AM FACTORY LABORER Narrative YAW - 09/11/2024 9:01 AM FACTORY LABORER Is the Patient experiencing symptoms consistent with COVID?->Unknown Jesu Chew MD LAB MICROBIOLOGY - GENERAL ORDER INOCENTE Final Result Performing Organization Address City/State/[facility] Co de Phone Number YAW BOOKER [address] [facility] Department [place] [address] * (ABNORMAL) eGFR (09/11/2024 8:18 AM FACTORY LABORER) eGFR 6(L) >=60 mL/min/1. 73 m2 Comment: [...] last reviewed 2021. Blood 09/11/2024 8:18 AM FACTORY LABORER 09/11/2024 8:22 AM FACTORY LABORER Jesu Chew MD LAB BLOOD ORDERABLES Final Resul t YAW [address] [facility] Department [place] [address] * (ABNORMAL) Differential, auto (09/11/2024 8:18 AM FACTORY LABORER) Neutrophil abs 7.3(H) 1.5 - 6.5 K/cumm Imm gran abs 0.0 0.0 - 0.1 K/cumm [facility] Lymphocyte abs 0.8 0.8 - 3.3 K/cumm [facility] Monocyte abs 0.4 0.2 - 0.8 K/cumm [facility] Eosinophil abs 0.1 0.0 - 0.5 K/cumm [facility] Basophil abs 0.1 0.0 - 0.1 K/cumm [facility] Neutrophil pct 84.4 % [facility] Comment: Interpretive Data Percent cell count reference ranges are not reported, since discordance with absolute values may lead to misinterpretation of CBC data. Current Interpretive Data was last revised on 2017. Imm gran pct 0.3 % [facility] Comment: Interpretive Data Percent cell count reference ranges are not reported, since discordance with absolute values may lead to misinterpretation of CBC data. Current Interpretive Data was last revised on 2017. Lymphocyte pct 9.0 % [facility] Comment: Interpretive Data Percent cell count reference ranges are not reported, since discordance with absolute values may lead to misinterpretation of CBC data. Current Interpretive Data was last revised on 2017. Monocyte pct 4.5 % [facility] Comment: Interpretive Data Percent cell count reference ranges are not reported, since discordance with absolute values may lead to misinterpretation of CBC data. Current Interpretive Data was last revised on 2017. Eosinophil pct 1.2 % [facility] Comment: Interpretive Data Percent cell count reference ranges are not reported, since discordance with absolute values may lead to misinterpretation of CBC data. Current Interpretive Data was last revised on 2017. Basophil pct 0.6 % [facility] Comment: Interpretive Data Percent cell count reference ranges are not reported, since discordance with absolute values may lead to misinterpretation of CBC data. Current Interpretive Data was last revised on 2017. Blood 09/11/2024 8:18 AM FACTORY LABORER 09/11/2024 8:22 AM FACTORY LABORER Jesu Chew MD LAB BLOOD ORDERABLES Final Resul t Performing Organization Address [facility] Co de Phone Number YAW [address] [address] * (ABNORMAL) CBC with auto differential (09/11/2024 8:18 AM FACTORY LABORER) [facility] WBC 8.7 3.8 - 9.9 K/cumm Hgb 13.3 11.9 - 15.5 g/dL [facility] Hct 41.4 35.6 - 45.5 % [facility] Plt 186 150 - 400 K/cumm [facility] MPV 10.4 9.1 - 12.3 fL [facility] RBC 4.42 3.90 - 5.20 M/cumm [facility] MCV 93.7 81.3 - 96.4 fL [facility] MCH 30.1 27.1 - 33.3 pg [facility] MCHC 32.1(L) 32.3 - 35.7 g/dL [facility] RDW CV 15.4(H) 11.1 - 14.9 % [facility] RDW SD 53.1(H) 35.7 - 48.1 fL [facility] NRBC abs 0.00 0.00 - 0.01 K/cumm [facility] Blood 09/11/2024 8:18 AM FACTORY LABORER 09/11/2024 8:22 AM FACTORY LABORER Jesu Chew MD LAB BLOOD ORDERABLES Final Resul t Performing Organization Address City/[facility]/ZIP Co de Phone Number [facility] [address] [place] [address] * (ABNORMAL) Comprehensive metabolic panel (09/11/2024 8:18 AM FACTORY LABORER) [facility] Sodium 141 135 - 145 mmol/L Potassium, pl 6.7(C) 3.3 - 4.9 mmol/L [facility] Comment:Hemolyzed; Potassium value may be falsely elevated by as much as 1.0 mmol/L. Suggest redraw and reanalysis. Critical Result called to and read back by [id number], DATE: 2024-09-11 09:11:28 BY: [id number] Chloride 101 97 - 110 mmol/L [facility] CO2 24 22 - 32 mmol/L [facility] Anion gap 16(H) 2 - 15 mmol/L [facility] BUN 96(H) 6 - 25 mg/dL [facility] Creatinine 7.47(H) 0.60 - 1.10 mg/dL [facility] Glucose 148 70 - 199 mg/dL [facility] Comment: Interpretive Data Fasting glucose >/= [...] 2022. Calcium 8.2(L) 8.5 - 10.3 mg/dL [facility] Bilirubin, total 0.3 0.1 - 1.2 mg/dL [facility] Protein, pl 7.9 6.5 - 8.5 g/dL [facility] Albumin 4.3 3.5 - 5.0 g/dL [facility] Alk phos 144(H) 40 - 130 Units/L [facility] ALT 15 7 - 45 Units/L [facility] AST See Comment 10 - 45 [facility] Comment:Credited; Hemolyzed Specimen Blood 09/11/2024 8:18 AM FACTORY LABORER 09/11/2024 8:22 AM FACTORY LABORER us Jesu Chew MD LAB BLOOD ORDERABLES Final Resul t [facility] [address] [facility] Department [place] [address] * Hepatitis C antibody Blood (08/25/2024 10:24 AM FACTORY LABORER) [facility] Hep C Ab Nonreactive Nonreactive Comment:Antibodies to HCV no t detected. Does NOT exclude the possibility of recent exposure to HCV. Current interpretive data was last revised on 22 Blood 08/25/2024 10:2 4 AM FACTORY LABORER 08/25/2024 10:58 AM FACTORY LABORER Narrative [facility] - 08/25/2024 11:45 AM FACTORY LABORER This lab is being obtained as part of a Kidney transplant evaluation, is time sensitive, and should only be drawn during the evaluation visit at [address] Lab[address] Ginette Mcgregor MD LAB MICROBIOLOGY - GENERAL ORDERABLES Final Result Performing Organization Address City/[facility]/ZIP Co de Phone Number [facility] [place] [address] * (ABNORMAL) Hemoglobin A1c (08/25/2024 10:24 AM FACTORY LABORER) [facility] Hgb A1C 6.9(H) 4.0 - 5.6 % Estimated Average Glucose 151 mg/dL [facility] Comment: The ADA recommends reporting an estimated Average Glucose (eAG) with all Hemoglobin A1c results using the equation derived from a study of 507 normal and diabetic adults. Minority populations were underrepresented and children were not included. (Diabetes Care 2020; 43(S1): S66-S76). The eAG is not equivalent to a fasting glucose. Blood 08/25/2024 10:2 4 AM FACTORY LABORER 08/25/2024 10:58 AM FACTORY LABORER Narrative [facility] - 08/25/2024 11:27 AM FACTORY LABORER This lab is being obtained as part of a Kidney transplant evaluation, is time sensitive, and should only be drawn during the evaluation visit at [address] us Ginette Mcgregor MD LAB BLOOD ORDERABLE S Final Result Performing Organization Address City/[facility]/ZIP Co de Phone Number [facility] Department [facility] [place] [address] * Lipid panel (08/25/2024 10:24 AM FACTORY LABORER) Cholesterol 188 30 - 199 mg/dL Comment: [...] revised on 2018. Triglycerides 49 <=149 mg/dL [facility] Comment: Interpretive Data Ages < or = [...] revised on 2018. HDL 72 >=40 mg/dL [facility] Comment: Interpretive Data Ages < or = [...] 2018. LDL, calculated 106 <=129 mg/dL YAW [facility] Comment: Interpretive Data Ages < or = [...] 3. Juanito Manuel et al. YRN Cardiol. 2020 November 20;5(5):540-548. doi: 10.1001/jamacardio.2020.0013 Current Interpretive Data was last revised on 2024. Non-HDL Cholesterol 116 mg/dL [facility] Comment: Interpretive Data Ages < or = [...] last revised on 2018. Chol/HDL ratio 3 [facility] Blood 08/25/2024 10:2 4 AM FACTORY LABORER 08/25/2024 10:58 AM FACTORY LABORER Narrative [facility] - 08/25/2024 11:40 AM FACTORY LABORER This lab is being obtained as part of a Kidney transplant evaluation, is time sensitive, and should only be drawn during the evaluation visit at [facility] Lab. us Ginette Mcgregor MD LAB BLOOD ORDERABLE S Final Result [facility] Department [place] [address] * (ABNORMAL) Albumin Creatinine Ratio, Urine (10/05/2023 3:35 AM CDT) Albumin Ur 267.0 mg/L Comment: Interpretive Data No reference range established. Current interpretive data was last revised 2018. Creatinine Ur 15.9 mg/dL YAW BOOKER Comment: Interpretive Data No reference range established. Current interpretive data was last revised 2018. Albumin Creatinine Ratio, Ur 1,679(H) 1 - 29 mg/g YAW BOOKER Urine 10/05/2023 3:35 AM CDT 10/05/2023 3:44 AM CDT us Forrest Saucedo MD LAB URINE ORDERABLES Final Re sult [facility] [address] [facility] Department [place] [address] from Last 3 Months or Most Recently Relevant to Health Maintenance Additional Health Concerns Infection Onset Date Last Indicated MDR gram neg/ESBL 09/11/2024 09/11/[address] [facility] MEDICARE ADVANTAGE [facility] Address: [address] [address] GENERIC COPAY ASSIST [facility] MEDICARE [facility] Address: [address] [address] [place] [address] [facility] MEDICARE 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 Relationship Specialty Start Date End Date Deanna Wyatt PA [facility] [place] [address] PCP - General Physician Greige Mender 11/11/23 Deanna Wyatt PA [address] [place] [address] Physician Greige Mender 11/09/23 Rissa Sprague MD [address] [place] [address] Consulting Physician Pulmonary Disease 10/05/23 Shireen Marino, RN [address] [facility] [address] [place] [address] Cheese Blender 05/07/24 Td Nicolas MD PhD [address] [facility] [place] [address] Consulting Physician Endocrinology Diabetes & Metabolism 06/06/24 Amrik Mata MD [address] [address] Referring Physician Nephrology 06/06/24
--- OUTSIDE RECORDS SUMMARY | 2024-11-25 16:34 | XMS_ITS ---
Author Organization [facility] Address [address] [place] [address] Care Team Providers Care Sap [employer] Security Name Role Phone Deanna Wyatt Primary Care Provider [phone] Deanna Wyatt Unavailable [phone] Rissa Sprague MD Unavailable [phone] Shireen Marino RN Unavailable [phone] Td Nicolas MD PhD Unavailable [phone] Amrik Mata MD Unavailable [phone] Transplant Episode Kidney Candidate [facility] ([place], [place]) - [facility] Evaluation began on 06/11/2024 Marked as Active on 06/11/2024 Reason: Evaluation - Standard Kidney CoordinatorShireen Marino RN Fax: N/A Email: N/A Scores Score Value Updated Exceptions/Reas ons CPRA Not available EPTS (Calc) 50 11/25/2024 [place] Organ Diagnosis Organ Primary Contributory Kidney Diabetes Mellitus - Type II Care Team Name Role Phone Fax Email Shireen Marino RN Kidney Coordinator [phone] N/A N/A Coral Danielle Primary 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
[2024-11-27 04:48] LABS: FSH 144.7 mIU/mL
== END 2024-11-25 16:29 | disposition home or self-care (01) ==
LOC: ANHLAB 16:31
PROVIDERS: PCP Physician Assistant; Visit Provider Student in an Organized Health Care Education/Training Program
DX: N95.1 Menopausal and female climacteric states (principal)
CPT/HCPCS: 36415; 82670; 83001